=== PATIENT | female | born 1950 | race Caucasian/White ===

== ENCOUNTER 2021-07-13 09:45 | Outpatient (CLI) | payer MEDICARE, BC, SELFPAY | END 2021-07-13 09:46 | disposition home or self-care (01) | LOC: ANHSURGERY 09:54 | PROVIDERS: Visit Provider Urology | DX: N36.42 Intrinsic sphincter deficiency (ISD) (principal) | CPT/HCPCS: 87086; 87147; 87181; 87186 ==

== ENCOUNTER 2021-07-24 01:57 | Day surgery (SDC) | payer MEDICARE, BC, SELFPAY ==
[2021-07-12 11:31] VITALS: BMI 28.8
--- NOTE | 2021-07-12 11:55 | PC.NURSE ---
Report to the Outpatient Waiting Room, entrance under the green pavilion located off [facility], at time __12:00PM on date __07/24/21 . OR Time: __2:00PM . - You and your visitor will be asked a series of questions to screen for COVID 19 for your protection. - Only one visitor is allowed at this time. - The patient visitor is requested to leave or wait in car when not with patient. - A mask is required within the hospital. Patients may have clear liquids (water, carbonated beverages, clear teas, apple juice) until 3 hours prior to surgery with a maximum of 20 ounces. - No food from midnight until time of surgery - Infants may have breast milk until 4 hours before surgery, formula 6 hours prior to surgery. - Children will be allowed to drink immediately following surgery. If applicable, please bring a bottle or sippy cup to assist with drinking. Juice, water, soda, and popsicles are readily available. For infants on formula, please bring formula the day of surgery. Pacifiers are allowed. Take the following medications with a SIP of water the morning of surgery: __AMLODIPINE Medications to discontinue per physician ____HOLD ALL VITAMINS/SUPPLEMENTS 7 DAYS PRE-OP Date to take last dose____07/17/21 Please no make-up, nail ecuadorean, hairspray, perfume, deodorant, or body powder the day of surgery. No jewelry (including any body piercings) or valuables the day of surgery, leave them at home. Please take a shower or bath the night before, or the morning of, surgery with an antibacterial soap. Wear comfortable, loose fitting clothing. Children are encouraged to wear pajamas. - Jewelry must be removed prior to entering the operating room. Rings and piercings that are not removed may be cut off. - The hospital will not accept responsibility for valuables. - Please leave all valuables, including medications, at home the day of surgery. If you are going home after surgery, a licensed form setter/driver must drive you home. - NO public transportation without another adult. - We recommend that an adult stay with you for 24 hours following discharge. - We also recommend that you do not drive, make important decision, drink alcoholic beverages, or take any drugs that were not prescribed by your health care provider for at least 24 hours after your discharge time. For Pediatric surgeries, we recommend two adults accompany the child home (only one inside the building at this time). Follow any additional instructions given to you from your surgeon. If you or anyone in your household have experienced Covid symptoms in the past week, please notify your surgeon or the nurse liaison at the phone number below for possible testing. Telephone instructions given to __PATIENT and asked if any additional questions and then verbalized understanding. Patient advised to call surgeon office or pre surgery nurse liaison [phone] if any additional questions.
--- NOTE | 2021-07-23 21:23 | PM.IMHP ---
H&P: HPI History of Present Illness Date/Time: 07/23/21 21:23 Chief Complaint: 71 yo wtih ISD Review of Systems Review of Systems: negative [facility] Social History Social History Smoking packs per day: 1 Smoking cigarettes per day: 20.0 Years smoked: 19 Smoking pack-years: 19.00 Smoking status: Former smoker Tobacco type: cigarettes Smoking end date: 08/18/86 Alcohol intake: current Drinks per week: 4 Substance use: never Additional living arrangements comments: HUSB Spiritual care concerns: No Meds Home Medications and Allergies Home Medications Medication Instructions Recorded Confirmed Type Bifidobacterium infantis 4 mg 4 mg PO DAILY 07/12/21 07/12/21 History capsule (Align) [place] 3 Natural Fish Oil Conc 1 tab-cap PO DAILY 07/12/21 07/12/21 History acetaminophen 650 mg 1,300 mg PO Q12H PRN Pain 07/12/21 07/12/21 History tablet,extended release amlodipine 5 mg tablet 1 tablet PO QAM 07/12/21 07/12/21 History anastrozole 1 mg tablet 1 tablet PO QAM 07/12/21 07/12/21 History ascorbic acid (vitamin C) 1,000 mg 1 g PO DAILY 07/12/21 07/12/21 History tablet calcium carbonate 600 mg-vitamin 1 tablet PO BID 07/12/21 07/12/21 History D3 5 mcg (200 unit) tablet cholecalciferol (vitamin D3) 25 25 mcg PO DAILY 07/12/21 07/12/21 History mcg (1,000 unit) tablet cyanocobalamin (vitamin B-12) 1,000 mcg PO DAILY 07/12/21 07/12/21 History 1,000 mcg capsule inositol 250 mg tablet 220 mg PO DAILY 07/12/21 07/12/21 History lisinopril 20 mg tablet 20 mg PO QAM 07/12/21 07/12/21 History multivitamin with minerals-folic 1 tablet PO DAILY 07/12/21 07/12/21 History acid 0.4 mg tablet omega-3 fatty acids 2,000 mg PO DAILY 07/12/21 07/12/21 History omeprazole 20 mg capsule,delayed 1 cap PO QAM 07/12/21 07/12/21 History release oxybutynin chloride 10 mg 10 mg PO QAM 07/12/21 07/12/21 History tablet,extended release 24 hr rosuvastatin 20 mg tablet 1 tablet PO HS 07/12/21 07/12/21 History zoledronic acid 4 mg intravenous 4 mg IV [id number] 07/12/21 07/12/21 History solution Allergies Allergy/AdvReac Type Severity Reaction Status Date / Time chlorhexidine Allergy Rash Verified 07/12/21 11:17 Exam Narrative: normal breathing A+O x3 milimal urethral mobility Assessment and Plan Assessment and plan (1) Intrinsic sphincter deficiency (ISD): Code(s): N36.42 - Intrinsic sphincter deficiency (ISD) Status: Acute Assessment and Plan: bulking agent
[2021-07-24 10:28] VITALS: BP 124/72; PULSE 52; RESP 18; TEMP 36.4; O2SAT 98
[2021-07-24] MEDS: LACTATED RINGERS 1,000 ML 30 ML IV CONT (11:02)
--- NOTE | 2021-07-24 12:35 | WPDANESEPPF ---
Anes - Initial Pre Proc Eval Procedure: Operation Date: 07/24/21 12:30 Proposed Procedures p Cystoscopy with Bulkamid - Maged Parry MD Date/Time: 07/24/21 12:35 Surgeon: Maged Parry MD Pre Op Diagnosis: Instrinsic Sphincter Deficiency Patient Data Age: 71 Gender: F Height: 1.63 m Weight: 70.6 kg Last Vital Signs Temp 36.4 C L 07/24/21 10:28 Pulse 52 L 07/24/21 10:28 Resp 18 07/24/21 10:28 BP 124/72 07/24/21 10:28 Pulse Ox 98 07/24/21 10:28 O2 Del Method Room Air 07/24/21 10:28 Allergies Allergy/AdvReac Type Severity Reaction Status Date / Time chlorhexidine Allergy Rash Verified 07/12/21 11:17 Home Medications Medication Instructions Recorded Confirmed Type Bifidobacterium infantis 4 mg 4 mg PO DAILY 07/12/21 07/12/21 History capsule (Align) [place] 3 Natural Fish Oil Conc 1 tab-cap PO DAILY 07/12/21 07/12/21 History acetaminophen 650 mg 1,300 mg PO Q12H PRN Pain 07/12/21 07/12/21 History tablet,extended release amlodipine 5 mg tablet 1 tablet PO QAM 07/12/21 07/12/21 History anastrozole 1 mg tablet 1 tablet PO QAM 07/12/21 07/12/21 History ascorbic acid (vitamin C) 1,000 mg 1 g PO DAILY 07/12/21 07/12/21 History tablet calcium carbonate 600 mg-vitamin 1 tablet PO BID 07/12/21 07/12/21 History D3 5 mcg (200 unit) tablet cholecalciferol (vitamin D3) 25 25 mcg PO DAILY 07/12/21 07/12/21 History mcg (1,000 unit) tablet cyanocobalamin (vitamin B-12) 1,000 mcg PO DAILY 07/12/21 07/12/21 History 1,000 mcg capsule inositol 250 mg tablet 220 mg PO DAILY 07/12/21 07/12/21 History lisinopril 20 mg tablet 20 mg PO QAM 07/12/21 07/12/21 History multivitamin with minerals-folic 1 tablet PO DAILY 07/12/21 07/12/21 History acid 0.4 mg tablet omega-3 fatty acids 2,000 mg PO DAILY 07/12/21 07/12/21 History omeprazole 20 mg capsule,delayed 1 cap PO QAM 07/12/21 07/12/21 History release oxybutynin chloride 10 mg 10 mg PO QAM 07/12/21 07/12/21 History tablet,extended release 24 hr rosuvastatin 20 mg tablet 1 tablet PO HS 07/12/21 07/12/21 History zoledronic acid 4 mg intravenous 4 mg IV [id number] 07/12/21 07/12/21 History solution Patient hx anesthesia problems: none Family hx anesthesia problems: none Results Review: All pre-operative results and documents have been reviewed as part of the pre-operative evaluation. [facility] Past Medical History Medical History Breast CA GERD (gastroesophageal reflux disease) Hyperlipidemia Hypertension Renal cancer Social History Social History Smoking packs per day: 1 Smoking cigarettes per day: 20.0 Years smoked: 19 Smoking pack-years: 19.00 Smoking status: Former smoker Tobacco type: cigarettes Smoking end date: 08/18/86 Alcohol intake: current Drinks per week: 4 Substance use: never Living arrangements: with family Additional living arrangements comments: HUSB Spiritual care concerns: No Anes - Eval Final PreProcedure Day of Procedure 07/24/21 12:35 Patient weight: overweight Heart: regular rate and rhythm Lungs: clear to auscultation Airway: Mallampati scale class 1 Neurological: alert and oriented Last oral intake: >/= 8 hours ASA classification: III Emergent: no Anesthetic plan: proceed Anesthesia type and monitoring: general LMA and standard monitoring Results Review: All pre-operative results and documents have been reviewed as part of the pre-operative evaluation. Informed Consent: The patient's anesthetic plan and its attendant risks and benefits were discussed with the patient/family/POA. Questions were solicited and answers provided to the satisfaction of the patient/family/POA.
--- NOTE | 2021-07-24 12:50 | WPDHPUPDATE1 ---
History and Physical Update Update Date/Time: 07/24/21 12:50 History and Physical has been reviewed, including an updated exam of the patient. There are NO changes in the patient's condition. Risks, benefits, and alternatives have been discussed and questions answered. Patient agrees to proceed with procedure.
[2021-07-24] MEDS: ceFAZolin 2 GM/D5W 50 ML 2 GM/50 ML BAG IVPB (12:55)
--- NOTE | 2021-07-24 13:15 | P.OP_ITS ---
Procedure Note - Detailed Date of Procedure 07/24/21 Pre-op Diagnosis Instrinsic Sphincter Deficiency Post-op Diagnosis Same Procedure Performed Cystoscopy with suburethral injection of implant material [id number] Surgeon Maged Parry MD Anesthesia MAC Indications This is a patient with stress urinary incontinence due to intrinsic sphincter deficiency. They desires surgical correction. They understand the risk of bleeding, and infection, lack of efficacy, need for repeat procedures, obstructive voiding requiring catheterization. They agreed to proceed. She is feel urethral sling in the past. She understands the higher risk of lack of efficacy. She understands the risk of need for repeat procedures. She understands the risks of retention. She agrees to proceed Findings Open urethra consistent with intrinsic sphincter deficiency Description of Procedure The patient was correctly identified and informed consent was obtained. They were brought to the operating room. They were given MAC anesthesia. They were placed in the dorsal lithotomy position. They were prepped and draped in a sterile fashion. A time-out performed. Cystoscopy revealed no tumors in the bladder and an open urethra consistent with intrinsic sphincter deficiency. I located the site 2 cm distal the bladder neck. I injected my bulking agent circumferentially. I performed 4 pillows. These are at the 10 2 4 and 8 o' clock position. There was excellent bulking effect. At the conclusion of the procedure she was awakened and transferred to the PACU in stable condition. Implants Urethral bulking agent Estimated Blood Loss 1 Drains No Packing No Pathology None sent Complications No immediate complications Condition Stable Disposition PACU
[2021-07-24 13:19] VITALS: BP 91/64; PULSE 75; RESP 12; O2SAT 94
[2021-07-24 13:45] VITALS: BP 115/69; PULSE 65; RESP 20
[2021-07-24 14:15] VITALS: BP 137/69; PULSE 60; RESP 20
== END 2021-07-24 14:30 | disposition home or self-care (01) ==
PROVIDERS: Visit Provider Urology
PROC: 3E0K8GC Introduction of Other Therapeutic Substance into Genitourinary Tract, Via Natural or Artificial Opening Endoscopic (ICD-10-PCS; CPT 51715; principal; 2021-07-24 12:30)
DX: N36.42 Intrinsic sphincter deficiency (ISD) (principal); I10 Essential (primary) hypertension; E78.5 Hyperlipidemia, unspecified; K21.9 Gastro-esophageal reflux disease without esophagitis; Z87.891 Personal history of nicotine dependence; Z79.811 Long term (current) use of aromatase inhibitors; Z85.3 Personal history of malignant neoplasm of breast; Z85.528 Personal history of other malignant neoplasm of kidney
CPT/HCPCS: 51715; A9270; J0690; J2405; J2704; J3010; J7120; L8606

== ENCOUNTER 2024-07-06 07:43 | Outpatient (CLI) | payer MEDICARE, BC, SELFPAY ==
--- OUTSIDE RECORDS SUMMARY | 2024-07-06 07:50 | XMS_ITS | Encounter Summary ---
Author Organization [facility] Healthcare Address [address] [place] [address] Care Team Providers Care Film Processor Name Role Phone MachomanasaRogelio MD Unavailable [place] MD Unavailable [phone] Kyle Alejandro MD Unavailable [phone] Kelsey Royal MD PhD Unavailable [phone] Rena Alexander MD Unavailable [phone] Gila Ibarra MD Unavailable [phone] Aravind Jones BOAT GARNISHER Unavailable [phone] Anya Staton NP Unavailable Elaina Gagnon Primary Care Provider + Gustavo Toscano MD Unavailable Encounter Details Date Type Department Care Team (Late st Contact Info) Description 06/30/2024 Telephone [facility] Medical Group Orthopedics and Sports Medicine [facility] [address] [place] [address] Sebastian Pratt MD [address] [place] [id number] Social History Tobacco Use Types Packs/Day Years Used Date Smoking Tobacco: Former Cigarettes 0.8 20 0 02/18/1966 - 02/18/1986 Smokeless Tobacco: Never Alcohol Use Standard Drinks/Week Comments Yes 2 (1 standard drink = 0.6 oz pur e alcohol) [facility] Utilities Answer Date Recorded In the past 12 months has th e electric, gas, oil, or water company threatened to shut off services in your home? No 06/10/2023 Social Connection and Isolat ion Panel [NHANES] Answer Date Recorded In a typical week, how many times do you talk on the phone with family, friends, or neighbors? More than three times a week 06/10/2023 How often do you get togethe r with friends or relatives? More than three times a week 06/10/2023 How often do you attend chur ch or hinduism services? More than 4 times per year 06/10/2023 Do you belong to any clubs o r organizations such as orthodoxy groups, unions, fraternal or athletic groups, or school groups? No 06/10/2023 How often do you attend meet ings of the clubs or organizations you belong to? Never 06/10/2023 Are you , , di vorced, , never , or living with a partner? 06/10/2023 AUDIT-C Answer Date Recorded Q1: How often do you have a drink containing alc ohol? 2-4 times a month 06/07/2023 Q2: How many drinks containi ng alcohol do you have on a typical day when you are drinking? 1 or 2 06/07/2023 Q3: How often do you have si x or more drinks on one occasion? Never 06/07/2023 Overall Financial Resource Strain (CARDIA) Answe r Date Recorded How hard is it for you to pa y for the very basics like food, housing, medical care, and heating? Not hard at all 06/10/2023 Hunger Vital Sign Answer Date Recorded Within the past 12 months, y ou worried that your food would run out before you got the money to buy more. Never true 06/10/19 24 Within the past 12 months, t he food you bought just didn't last and you didn't have money to get more. Never true 06/10/2023 PRAPARE - Transportation Answer Date Re corded In the past 12 months, has l ack of transportation kept you from medical appointments or from getting medications? No 05/20 In the past 12 months, has l ack of transportation kept you from meetings, work, or from getting things needed for daily living? No 06/10/2023 Housing Stability Vital Sign Answer Miguel e Recorded In the last 12 months, was t here a time when you were not able to pay the mortgage or rent on time? No 06/10/2023 In the last 12 months, how many places have you lived? 1 06/10/2023 In the last 12 months, was t here a time when you did not have a steady place to sleep or slept in a detention (including now)? No 06/10/2023 Personal Safety Answer Date Recorded Have you ever been in or are you currently in a harmful physical or emotional relationship or is someone making you feel afraid or unsafe? Denies 06/07/2023 Comments No Sex and Gender Information Value Date Recorded Sex Assigned at Not on file Legal Sex Female 7:51 AM ICING AND GLAZE MAKER Gender Identity Female 11/03/2019 11:06 AM CDT Sexual Orientation Straight 11/03/2019 11 :06 AM CDT documented as of this encounter Miscellaneous Notes * Telephone Encounter - Brent Chaparro MA - 07/02/2024 2:54 PM CDT LVM again asking for pt to call back to get surgery dates. * Telephone Encounter - Brent Chaparro MA - 06/30/2024 1:07 PM CDT LVM asking pt call back so we can go over surgery dates. * Telephone Encounter - Naif Murphy MA - 06/30/2024 12:32 PM CDT SPOKE TO PT, SHE WANTS TO GET HER SURGERY SCHEDULED EMILY documented in this encounter Plan of Treatment Not on file documented as of this encounter Visit Diagnoses Not on filedocumented in this encounter Care Teams Film Processor Relationship Specialty Start Date End Date Elaina Gagnon PA [address] [place] [address] PCP - General Physician Insurance Coder 04/03/23 Rogelio Perkins MD Medical Oncologist/Hematologis t Medical Oncology 10/25/17 North Pemberton MD [address] [place] [address] Referring Physician Surgery 10/25/17 Kyle Alejandro MD [address] [place] [address] Referring Physician Urology 10/25/17 Kelsey Royal MD PhD [address] [place] [address] Radiation Oncologist Radiation Oncology 01/02/18 Rena Alexander MD [address] [place], [place] [id number] Medical Oncologist/Hematologis t Medical Oncology 04/23/18 Gila Ibarra MD [address] [place], [place] [id number] Surgeon Surgical Oncology 04/23/18 Aravind Jones NP [address] [place] [address] Nurse Practitioner Nurse Practitioner 10/11/20 Anya Staton NP [address] [place] [address] Nurse Practitioner Medical Oncology 06/27/21 Gustavo Toscano MD [address] [id number] Referring Physician Cardiovascular Disease 05/24/23 documented as of this encounter
--- OUTSIDE RECORDS SUMMARY | 2024-07-06 07:50 | XMS_ITS ---
Author Organization [facility] Address [address] [facility] [place] [address] Care Team Providers Care Retail Pos Specialist Name Role Phone Rogelio Perkins MD Unavailable [phone] [place] MD Unavailable Kyle Alejandro MD Unavailable [phone] Kelsey Royal MD PhD Unavailable [phone] Rena Alexander MD Unavailable [phone] Gila Ibarra MD Unavailable [phone] Aravind Jones TURBOGENERATOR OPERATOR Unavailable [phone] Anya Staton NP Unavailable [phone] Elaina Gagnon Primary Care Provider + Gustavo Toscano MD Unavailable Active Problems Problem Noted Date Diagnosed Date Status post total knee replacement using cement, right 06/28/2023 Orthopedic aftercare 06/28/2023 Right knee pain 06/28/2023 Depression 06/09/2023 Overactive bladder 06/09/2023 Arthritis of right knee 06/07/2023 Primary osteoarthritis of right knee 04/22/2023 Incomplete uterovaginal prolapse 11/28/2020 History of colon polyps 03/08/2020 snf current use of aromatase inhibitor 08/2018 Bone disorder 04/24/2018 Encounter for follow-up exam ination after completed treatment for malignant neoplasm 04/23/2018 Seborrheic dermatitis 04/23/2018 History of breast cancer 04/20/2018 Personal history of irradiation 04/20/2018 Essential (primary) hypertension 12/01/2017 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, estrogen receptor positive 10/09/2017 Cancer Staging:Pathologic:Stage IIIA(pT4b, pN0, cM0, G2, ER: Positive, CA: Positive, HER2: Negative) - Signed by Kelsey Royal MD PhD on 01/02/2018 Clinical:Stage IIIB(cT4b, cN0, cM0, G2, ER+, CA+, HER2-) - Signed by Kelsey Royal MD PhD on 01/02/2018 Overview (10/31/2022): Lumpectomy and re-excision, plans radiation and hormonal treatments Malignant neoplasm metastatic to right lung (CMS /HCC) 02/17/2016 Splenic abscess 12/26/2015 History of renal cell cancer 02/18/2014 Cancer Staging:Clinical:Stage IV(cTX, cM1) - Unsigned GERD (gastroesophageal reflux disease) 3 Hyperlipidemia 03/12/2012 Irritable bowel syndrome (IBS) 03/12/2012 Osteopenia 03/12/2012 Overview (01/15/2023): Date Lumbar Spine T-score Left hip T-score Femoral neck T-score 02-20-2018 -0.6 0.4 -1.7 09-04-2019 0.0 -1.6 01-22-2022 0.0 0.1 -1.8 Other specified arthritis, multiple sites 2012 Urge and stress incontinence 03/12/2012 Current Treatment and Therapy Plans No current plan information found. Past Treatment and Therapy Plans Radiation Treatments * Course C1 01/29/2018 - 03/18/2018 Treatment Period Energy Fraction Dose Fractions Total Dose Plans Planned L BREAST # 02/05/2018 - 03/18/2018 180 28 / 5,040 LUOQ BOOST 01/29/2018 - 02/04/2018 200 5 / 1,000 Reference Points Delivered LT BREAST_LNs 02/05/2018 - 03/18/2018 5,040 PTV_BOOST_1000 01/29/2018 - 02/04/2018 1,000 Lifetime Dose Tracking * Chemical Lifetime Dose Automatic Entry Manual Entr y DLP 3,375 mGycm 3,375 mGycm 0 mGycm Resolved Problems Problem Noted Date Diagnosed Date Resolved Date Renal mass 12/26/2015 10/24/2018 Renal cell carcinoma 02/18/2014 023 Overview (10/31/2022): s/p nephrectomy at [place], 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
--- OUTSIDE RECORDS SUMMARY | 2024-07-06 07:50 | XMS_ITS | Referral Summary ---
Author Organization [facility] Address [address] [place] [address] Care Team Providers Care Bulk Coolers Installer Name Role Phone Rogelio Perkins MD Unavailable [phone] [place] MD Unavailable [phone] Kyle Alejandro MD Unavailable [phone] Kelsey Royal MD PhD Unavailable [phone] Rena Alexander MD Unavailable [phone] Gila Ibarra MD Unavailable Aravind Jones UPHOLSTERER INSIDE Unavailable [phone] Anya Staton NP Unavailable [phone] Elaina Gagnon Primary Care Provider + Gustavo Toscano MD Unavailable Encounters Date Type Department Care Team Description 06/30/2024 Telephone [facility] Orthopedics and Sports Medicine [address] [place] [address] Sebastian Pratt MD 06/08/2024 12:03 PM CDT - 06/08/2024 11:59 PM CDT Hospital Encounter [facility] [address] [place] [address] Chronic pain of left knee Discharge Disposition: Discharge to home or self care 06/08/2024 11:45 AM CDT - 06/08/2024 11:59 PM CDT Hospital Encounter [facility] [address] [place] [id number] Chronic pain of right knee Discharge Disposition: Discharge to home or self care 06/08/2024 11:45 AM CDT Office Visit [facility] Orthopedics and Sports Medicine [address] [place] [address] [address] [place] [address] Sebastian Pratt MD Chronic pain of right knee (Primary Dx); Chronic pain of left knee from Last 3 Months Allergies Active Allergy Reactions Criticality Noted Date Comments Adhesive Rash Medium 03/23/2014 White, medical tape causes rash Adhesive Tape-Silicones Rash Medium 04/12/2014 Chlorhexidine Hives Medium 12/30/2017 Chlorhexidine Gluconate Hives Medium 11/15/2017 Medications inositol 650 mg tablet Take 1,300 mg by mouth 2 (two) times a day. Active calcium carbonate (CALCIUM 600 ORAL) Take 600 mg by mouth 2 (two) times a day. Active acetaminophen ER (TYLENOL) 650 mg 8 hr tablet Take 1 tablet (650 mg total) by mouth every 8 (eight) hours as needed for pain Active rr-4-nwe-epa-fi sh oil-vit D3 [phone] ya-tb-wn-unit capsule Take 1 capsule by mouth nightly Juan Diego Green brand name (from [employer]) Active sg-ms-kcsz-FA-C a carb-vit K (WOMEN'S MULTIVITAMIN) 18 mg-400 mcg- 500 mg-50 mcg tablet Take 1 tablet by mouth every morning. Active lisinopril (PRINIVIL,ZESTR IL) 20 mg tablet Take 1 tablet (20 mg total) by mouth daily Active amLODIPine (NORVASC) 5 mg tablet Take 1 tablet (5 mg total) by mouth daily 3 9 Active ascorbic acid (VITAMIN C) 1,000 mg tablet Take 0.5 tablets (500 mg total) by mouth daily 0 Active cholecalciferol (VITAMIN D-3) 1,000 unit capsule Take 2 capsules (2,000 Units total) by mouth daily Active cyanocobalamin (Vitamin B-12) 100 mcg tabletIndicatio ns:Prevention of Vitamin B12 Deficiency Take 10 tablets (1,000 mcg total) by mouth daily Active docusate sodium (COLACE) 100 mg capsule Take 1 capsule (100 mg total) by mouth as needed 2 Active omeprazole (PriLOSEC) 40 mg capsule Take 1 capsule (40 mg total) by mouth daily 2 Active oxybutynin XL (DITROPAN-XL) 10 mg 24 hr tablet Take 1 tablet (10 mg total) by mouth daily 2 Active B.animalis,bifi d,infantis,long (PROBIOTIC 4X ORAL) Take 1 capsule by mouth daily Active hydrocortisone 1 % cream Apply 1 Application topically daily Active UNABLE TO FIND Take 1 each by mouth daily Med Name: Prevagen regular strength Active fluticasone propionate (FLONASE) 50 mcg/actuation nasal spray Administer 1 spray into each nostril as needed for rhinitis Active apixaban (ELIQUIS) 2.5 mg tabletIndicatio ns:Chronic pain of right knee Take 1 tablet (2.5 mg total) by mouth 2 (two) times a day for 14 days 28 tablet 4 Active HYDROcodone-gena taminophen (NORCO) 7.5-325 mg per tabletIndicatio ns:Pain Take 1 tablet every 6 hours as needed for severe pain. 28 tablet 4 Active Additional Information Patient not taking.Reported on 12/31/2023 traMADoL (ULTRAM) 50 mg tabletIndicatio ns:Chronic pain of right knee Take 1 tablet (50 mg total) by mouth every 6 (six) hours as needed for pain (as needed for moderate pain) 28 tablet 4 Active Additional Information Patient not taking.Reported on 12/31/2023 ondansetron (ZOFRAN) 4 mg tabletIndicatio ns:Chronic pain of right knee Take 1 tablet (4 mg total) by mouth every 8 (eight) hours as needed for nausea or vomiting 20 tablet 4 Active Additional Information Patient not taking.Reported on 12/31/2023 venlafaxine XR (EFFEXOR-XR) 75 mg 24 hr capsule TAKE 1 CAPSULE BY MOUTH EVERY DAY 90 capsule 3 5 03/31/19 26 Active Active Problems Problem Noted Date Diagnosed Date Status post total knee replacement using cement, right 06/28/2023 Orthopedic aftercare 06/28/2023 Right knee pain 06/28/2023 Depression 06/09/2023 Overactive bladder 06/09/2023 Arthritis of right knee 06/07/2023 Primary osteoarthritis of right knee 04/22/2023 Incomplete uterovaginal prolapse 11/28/2020 History of colon polyps 03/08/2020 custodial current use of aromatase inhibitor 08/2018 Bone disorder 04/24/2018 Encounter for follow-up exam ination after completed treatment for malignant neoplasm 04/23/2018 Seborrheic dermatitis 04/23/2018 History of breast cancer 04/20/2018 Personal history of irradiation 04/20/2018 Essential (primary) hypertension 12/01/2017 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, estrogen receptor positive 10/09/2017 Cancer Staging:Pathologic:Stage IIIA(pT4b, pN0, cM0, G2, ER: Positive, SC: Positive, HER2: Negative) - Signed by Kelsey Royal MD PhD on 01/02/2018 Clinical:Stage IIIB(cT4b, cN0, cM0, G2, ER+, SC+, HER2-) - Signed by Kelsey Royal MD [...] T-score Left hip T-score Femoral neck T-score --2018 -0.6 0.4 -1.7 09-04-2019 0.0 -1.6 01-22-2022 0.0 0.1 -1.8 Other specified arthritis, multiple sites 2012 Urge and stress incontinence 03/12/2012 Resolved Problems Problem Noted Date Diagnosed Date Resolved Date Renal mass 12/26/2015 10/24/2018 Renal cell carcinoma 02/18/2014 023 Overview (10/31/2022): s/p nephrectomy at [facility], 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 Immunizations Immunization Administration Dates Next Due Influenza, Quadrivalent, Spl it, Preservative Free, Intramuscular 11/23/2016 Influenza, Trivalent, High D ose, Split, Preservative Free, Intramuscular 01/28/2023,01/29/2022,12/13/2018,12/18,01/02/2016,01/20/2015 Influenza, Unspecified 01/28/2023,2020,12/19/2017,01/02,11/13/2013,03/04/2013,01/16/2012 ,12/07/2009 Moderna SARS-CoV-2 Monovalen t Vaccination (12+ YRS) 06/03/2020,05/06/2020 Moderna Sars-cov-2 Monovalen t Booster Vaccination .25 Ml dose (12+ YRS) 02/23/2021 Pneumococcal Conjugate PCV 13 02/08/2016, 015 Pneumococcal Conjugate Pcv20 01/28/2022 Pneumococcal Polysaccharide PPV23 04/16/2017 RSV Vaccine, Pref, Recombina nt, Subunit, Adjuvanted, PF, IM (Arexvy) 02/20/2023 Tdap 02/13/2022,01/16/2012 ZOSTER LIVE 01/01/2017 ZOSTER Recombinant 12/30/2018,09/08/2018 Social History Tobacco Use Types Packs/Day Years Used Date Smoking Tobacco: Former Cigarettes 0.8 20 0 02/18/1966 - 02/18/1986 Smokeless Tobacco: Never Tobacco Cessation:Counseling Given: Not Answered Alcohol Use Standard Drinks/Week Comments Yes 2 (1 standard drink = 0.6 oz pur e alcohol) [facility] Utilities Answer Date Recorded In the past [...] often do you attend chur ch or rastafari services? More than 4 times per year 06/10/2023 Do you belong to any clubs o r organizations such as confucianism groups, unions, fraternal or athletic groups, or [...] place to sleep or slept in a residential (including now)? No 06/10/2023 Personal Safety Answer Date Recorded Have you ever been in or are you currently in a harmful physical or emotional relationship or is someone making you feel afraid or unsafe? Denies 06/07/2023 Comments No Sex and Gender Information Value Date Recorded Sex Assigned at Not on file Legal Sex Female 7:51 AM COUPON AND BOND COLLECTION CLERK Gender Identity Female 11/03/2019 11:06 AM CDT Sexual Orientation Straight 11/03/2019 11 :06 AM CDT Last Filed Vital Signs Vital Sign Reading Time Taken Comments Blood Pressure 139/74 12/31/2023 1:18 PM COUPON AND BOND COLLECTION CLERK Pulse 65 12/31/2023 1:18 PM COUPON AND BOND COLLECTION CLERK Temperature 36.4 C (97.5 F) 12/31/2023 1:18 PM COUPON AND BOND COLLECTION CLERK Respiratory Rate 16 12/31/2023 1:18 PM COUPON AND BOND COLLECTION CLERK Oxygen Saturation 98% 12/31/2023 1:18 PM COUPON AND BOND COLLECTION CLERK Inhaled Oxygen Concentration - - Weight 70 kg (154 lb 6.4 oz) 12/31/2023 1:18 PM COUPON AND BOND COLLECTION CLERK Height 162.6 cm (5' 4 ) 06/07/2023 4:14 PM CDT Body Mass Index 26.5 06/07/2023 4:14 PM CDT Plan of Treatment Not on file Medical Devices Implanted Type Area Deckhand Engineer Device Identifier Shelf Expiration Date Model / Serial / Lot [employer] Simplex P Radiopaque Full Dose Cement Bone Sterile 6191-1-010 - [id number] Implanted:Qty: 1 on 06/07/2023 by Sebastian Pratt MD at [facility] Right: Knee [employer] 06/17/2025 6191-1-010 / / [id number] [employer] Simplex P Radiopaque Full Dose Cement Bone Sterile 6191-1-010 - [id number] Implanted:Qty: 1 on 06/07/2023 by Sebastian Pratt MD at [facility] Right: Knee [employer] 06/17/2025 6191-1-010 / / [id number] [employer] Baseplate Tibial Knee Cemented Right Fixed Stemmed Persona Size E Tivanium [id number] - [id number] Implanted:Qty: 1 on 06/07/2023 by Sebastian Pratt MD at [facility] Right: Knee [employer] [id number] 03/20/2033 [id number] / / [id number] [employer] Persona Cemented Posterior Stabilize Knee Right 6 Standard [id number] - [id number] Implanted:Qty: 1 on 06/07/2023 by Sebastian Pratt MD at [facility] Right: Knee [employer] [id number] 01/22/2032 [id number] / / [id number] [employer] Persona 32mm Knee Component Patellar All Poly Latex Free 99-1401-354-32 - [id number] Implanted:Qty: 1 on 06/07/2023 by Sebastian Pratt MD at [facility] Right: Knee [employer] [id number] 01/08/2028 [id number] / / [id number] [employer] Insert Tibial Knee Vitamin E Fixed Rt Persona Vivacit E 16mm Size 6 9 E F Polyethylene [id number] - [id number] Implanted:Qty: 1 on 06/07/2023 by Sebastian Pratt MD at [facility] Right: Knee [employer] [id number] 11/30/2026 [id number] / / [id number] Procedures Procedure Name Priority Date/Time Associated Diagnosis Comments XR KNEE LEFT 3 VIEWS Schedule Routine, Read Routine (OP Routine) 06/08/2024 12:11 PM CDT Chronic pain of left knee XR KNEE RIGHT 3 VIEWS Schedule Routine, Read Routine (OP Routine) 06/08/2024 11:52 AM CDT Chronic pain of right knee SCREENING MAMMOGRAM BILATERAL W MAURICIO Schedule Routine, Read Routine (OP Routine) 01/02/2024 1:16 PM COUPON AND BOND COLLECTION CLERK Screening mammogram, encounter for HEPATITIS PANEL, ACUTE Routine 06/08/2023 5:21 AM CDT DEXA AXIAL SKELETON BONE DENSITY 1 OR MORE SITES Schedule Routine, Read Routine (OP Routine) 02/20/2018 2:01 PM COUPON AND BOND COLLECTION CLERK 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 There is evidence of obtc-xp-csvj degenerative changes of the lateral compartment as well as evidence of advanced degenerative changes patellofemoral joint compartment IMPRESSION: 1. Evidence of advanced degenerative changes about the left knee with progression of ldpf-ck-ozhj degenerative changes of the lateral compartment THIS IS AN ELECTRONICALLY VERIFIED FINAL REPORT 06/08/2024 12:45 PM - Electronically signed by Sebastian Pratt T: Report ID: [id number] Reading Location: [place] [address] Procedure Note Sebastian Pratt MD - 06/08/2024 EXAM DESCRIPTION: XR KNEE LEFT 3 VIEWS REASON FOR STUDY: pain COMPARISON: Left knee radiographs September 2021 FINDINGS: There is no evidence of fracture, dislocation or tumor. There is evidenceof odzk-vp-ziwt degenerative changes of the lateral compartment as well as evidence of advanced degenerative changes patellofemoral joint compartment IMPRESSION: 1. Evidence of advanced degenerative changes about the leftknee with progression of zfub-ea-umiq degenerative changes of the lateral compartment THIS IS AN ELECTRONICALLY VERIFIED FINAL REPORT 06/08/2024 12:45 PM - Electronically signed by Sebastian Pratt T: Report ID: [id number] Reading Location: [place] [address] Sebastian Pratt MD IMG XR PROCEDURES Final Result * XR Knee Right 3 Views (06/08/2024 11:52 AM CDT) Anatomical Region Laterality Modality Lower Extremities, Knee Right Computed Radiography 06/08/2024 12:4 6 PM CDT Narrative 06/08/2024 12:48 PM CDT EXAM DESCRIPTION: XR KNEE RIGHT 3 VIEWS REASON FOR STUDY: pain COMPARISON: Right knee radiographs May 2023. FINDINGS: There is no evidence of fracture, dislocation or tumor. There is evidence of stable alignment position of total knee arthroplasty components. There is no evidence of overt prosthesis loosening. There has been interval removal of skin ted compared to the May 2023 examination IMPRESSION: 1. Stable alignment and position of total knee arthroplasty components compared to prior images. THIS IS AN ELECTRONICALLY VERIFIED FINAL REPORT 06/08/2024 12:48 PM - Electronically signed by Sebastian Pratt T: Report ID: [id number] Reading Location: [place] [address] Procedure Note Sebastian Pratt MD - 06/08/2024 EXAM DESCRIPTION: XR KNEE RIGHT 3 VIEWS REASON FOR STUDY: pain COMPARISON: Right knee radiographs May 2023. FINDINGS: There is no evidence of fracture, dislocation or tumor. There is evidenceof stable alignment position of total knee arthroplasty components. There isno evidence of overt prosthesis loosening. There has been interval removalof skin ted compared to the May 2023 examination IMPRESSION: 1. Stable alignment and position of total knee arthroplasty components compared to prior images. THIS IS AN ELECTRONICALLY VERIFIED FINAL REPORT 06/08/2024 12:48 PM - Electronically signed by Sebastian Pratt T: Report ID: [id number] Reading Location: [place] [address] Sebastian Pratt MD [facility] [place]ED[place] Final Result * Screening Mammogram Bilateral W Mauricio (01/02/2024 1:16 PM COUPON AND BOND COLLECTION CLERK) Anatomical Region Laterality Modality Breast Bilateral Mammography Impressions 01/02/2024 1:37 PM COUPON AND BOND COLLECTION CLERK BI-RADS ATLAS category (overall): 1 - Negative There is no mammographic evidence of malignancy. A 1 year screening mammogram is recommended. The patient has been or will be contacted. We recommend annual screening mammography for women at average risk of breast cancer beginning at age 40, based on guidelines of the [place] [employer] (ACR Practice Parameter for the Performance of Screening and Diagnostic Mammography) and [place] [employer]. For women with and elevated risk of breast cancer, please refer to the ACR Practice Parameter for specific screening recommendations. The patient will be entered into a reminder system with a target due date of 1 year for her next screening exam. Narrative 01/02/2024 1:37 PM COUPON AND BOND COLLECTION CLERK Screening Mammogram Bilateral W Mauricio: 01/02/24 The study was acquired using full field digital technology and interpreted from soft copy. 2D digital mammographic views, as well as 3D digital tomosynthesis were performed in the CC and MLO projections. CLINICAL: Screening mammogram, encounter for. No relevant medical history has been documented for this patient. No known family history of breast cancer. COMPARISONS: 10/31/2022 Screening Mammogram Bilateral W Mauricio 10/27/2021 Screening Mammogram Bilateral W Mauricio 10/11/2020 Diagnostic Mammogram Bilateral W Mauricio 09/24/2019 Diagnostic Mammogram Bilateral W Mauricio 07/04/2018 Diagnostic Mammogram Bilateral W Mauricio BREAST TISSUE: There are scattered areas of fibroglandular density. FINDINGS: There is no new suspicious finding in either breast on mammogram. us Self Screening Mammogram IMG MAMMO PROCEDURES Fi nal Result * Hepatitis panel, acute Blood (06/08/2023 5:21 AM CDT) Hep A IgM Nonreactive Nonreactive Comment: Interpretive Data: If Hep A IgM Ab is reported as Equivocal, a new sample should be drawn in two weeks for testing. Current interpretive data was last revised on 19. Hep B core IgM Nonreactive Nonreactive [facility] Comment: Interpretive Data If HepB Core IgM Ab is reported as Equivocal, a new sample should be drawn in two weeks for testing. Current interpretive data was last revised on 19. Hep C Ab Nonreactive Nonreactive [facility] Comment: Antibodies to HCV not detected. Does NOT exclude the possibility of recent exposure to HCV. Current interpretive data was last revised on 21 Interpretive Data Nonreactive: Antibodies to HCV not detected. Does NOT exclude the possibility of recent exposure to HCV. Equivocal: Equivocal for HCV antibodies. Supplemental molecular testing will be automatically performed to determine infection status in accordance with current CDC screening recommendations. Reactive: Positive for HCV antibodies. This may represent current or past HCV infection. Supplemental molecular testing will be automatically performed to determine current infection status in accordance with current CDC screening recommendations. Interpretive data was last revised on 2019. HepBsAg Nonreactive Nonreactive [facility] Blood 06/08/2023 5:21 AM CDT 06/08/2023 5:51 AM CDT Avelina Mckeon NP LAB MICROBIOLOGY - GENERAL O RDERABLES Final Result [facility] [address] [place] [address] * Dexa Axial Skeleton Bone Density 1 or 2 Site (02/20/2018 2:01 PM COUPON AND BOND COLLECTION CLERK) Anatomical Region Laterality Modality Body N/A Radiographic Dominique ging Narrative 02/21/2018 12:37 PM COUPON AND BOND COLLECTION CLERK Patient Name: Estrella Rhoades Date of : 1950 Date of scan: 02/20/2018 Bone mineral density was performed on a [employer] Discovery Densitometer. Machine Cross-calibration and Precision studies have been performed with a least significant change of 0.024 g/cm at the spine, 0.020 g/cm at the total proximal femur, and 0.014g/cm at the forearm. HISTORY: This is a 68 y.o. postmenopausal female with a history of breast cancer, low bone mass and renal cancer. Currently on treatment with calcium and vitamin D. With a current complaint of back, neck, arm and leg pain. History of tobacco use: History Smoking Status Former Smoker Types: Cigarettes Start date: 1966 Quit date: 1986 INDICATIONS: Menopause status and history of low bone mass. FINDINGS: BONE MINERAL DENSITY OF THE LUMBAR SPINE Bone Mineral Density (BMD) of the lumbar spine was measured from L1-L4 and the average density was calculated to be 0.983 gm/cm. This corresponds to a T-score standard deviations from the mean of young adults of -0.6. There is no previous study available for comparison. BONE MINERAL DENSITY OF THE PROXIMAL FEMUR Bone Mineral Density (BMD) of the left hip total was found to be 0.987 gm/cm2. This corresponds to a T-score standard deviations from the mean of young adults of 0.4. Femoral neck is 0.664 gm/cm2 with a T-score of -1.7. There is no previous study available for comparison. SUMMARY: Bone mineral density shows evidence of low bone mass in the hip and moderately increased fracture risk. ADDITIONAL COMMENTS: If the patient has a history of a fragility fracture, a fracture that occurred with trauma equivalent to a fall from a standing position or less, then the diagnosis is osteoporosis. The risk of osteoporotic fracture increases approximately 2-fold for each 1.0 SD decrease in T-score. However, low bone density is not the only risk factor for fracture. Other factors include patient s age, previous osteoporotic fracture or prior fracture as an adult, loss of height of greater than 2 inches, corticosteroid use, risk of falling, risk of injury, and family history of osteoporosis. Not everyone with low bone mineral density has osteoporosis. Osteomalacia and other metabolic bone disorders should also be considered where indicated. Patients who have osteoporosis should be evaluated for specific diseases and conditions (secondary causes) that may cause or contribute to bone loss. Consider repeating this study in 1-2 years to assess the patient s response to treatment, if applicable. It is recommended that any follow up exam be performed on the same machine if possible for better accuracy. DEFINITIONS: Osteoporosis: BMD at or below -2.5 T-score Osteopenia (low bone mass): BMD between -1.0 and-2.5 T-score. The Bone Health Program adopts the following WHO definitions: Osteoporosis: BMD below -2.5 S.D. as compared to the BMD of young normal adults. Osteopenia or Low Bone Mass: BMD between -1.0 and -2.5 S.D. below the BMD of young normal adults. Normal Bone Density: BMD equal to or greater than -1.0 S.D. as compared to the BMD of young normal adults. References: 1) Marvin, Annals of Internal Medicine 114(11): 919-923 (1990) 2) Daniel, Lancet 341 : 72-75 (1992) 3) Josr, Journal Bone and Mineral Research 7(6): 633-8 (1991) 4) Beny, Journal Bone and Mineral Research 8(10):1227-33 (1992) The history and data sections of the bone mineral density scan were prepared by Letha Oviedo (R)(CBDT) who is accredited by the International Society of Clinical Densitometry. The overall patient assessment and scan interpretation were performed by Jasper Robins M.D. who is certified by the International Society of Clinical Densitometry. [id number] Rena Alexander MD IM DXA PROCEDURES F inal Result from Last 3 Months or Most Recently Relevant to Health Maintenance Insurance MEDICARE [facility] MEDICARE [facility] MEDICARE [facility] Advance Directives For more information, please contact: [phone] * Full Code (Latest Code Status on File) Date Activated Date Inactivated Comments 06/07/2023 4:24 PM 06/10/2023 8:10 PM Care Teams Bulk Coolers Installer Relationship Specialty Start Date End Date Elaina Gagnon PA [address] [place] [address] PCP - General Physician Pilot Plant Supervisor 04/03/23 Rogelio Perkins MD Medical Oncologist/Hematologis t Medical Oncology 10/25/17 [place] MD [address] [place] [address] Referring Physician Surgery 10/25/17 Kyle Alejandro MD [address] [place] [address] Referring Physician Urology 10/25/17 Kelsey Royal MD PhD [address] [place] [address] Radiation Oncologist Radiation Oncology 01/02/18 Rena Alexander MD [address] [facility] [address] [place] [address] Medical Oncologist/Hematologis t Medical Oncology 04/23/18 Gila Ibarra MD [address] [facility] [address] [place] [address] Surgeon Surgical Oncology 04/23/18 Aravind Jones NP [address] [place], [place] [address] Nurse Practitioner Nurse Practitioner 10/11/20 Anya Staton NP [address] [place], [place] [address] Nurse Practitioner Medical Oncology 06/27/21 Gustavo Toscano MD [address] [address] Referring Physician Cardiovascular Disease 05/24/23
--- OUTSIDE RECORDS SUMMARY | 2024-07-06 07:50 | XMS_ITS | Encounter Summary ---
Author Organization [facility] Address [facility] [place] [address] Care Team Providers Care Glost Kiln Operator Name Role Phone Sebastian Blankenship MD Primary Care Provider Elaina Gagnon PA-C Primary Care Provider Gila Ibarra MD Unavailable Kelsey Royal MD Unavailable [phone] [place] MD Unavailable [phone] Aravind Jones NP Unavailable Leonardo Ramirez MD Unavailable Scar Snow MD Unavailable [phone] Abida Velásquez MD Unavailable [phone] Rafael Roberts Unavailable Daniel Ceja MD Unavailable [phone] Saray PEARSON MD, Carlos C Unavailable Ja Toscano MD Unavailable Gustavo Toscano MD Unavailable Jocelyn Culp MD Unavailable Sebastian Pratt MD Unavailable [phone] Encounter Details Date Type Department Care Team (Late st Contact Info) Description 08/26/[address] [facility] Clinics Conversion , Generic MD Angelique Social History Tobacco Use Types Packs/Day Years Used Date Smoking Tobacco: Never Assessed Comments Unknown Sex and Gender Information Value Date Recorded Sex Assigned at Female 04/30/2019 8:35 AM CDT Legal Sex Female 10:57 PM CDT Gender Identity Female 04/30/2019 8:35 AM CDT Sexual Orientation Straight 04/30/2019 8: 35 AM CDT documented as of this encounter Plan of Treatment Upcoming Encounters Date Type Department Care Team (Late st Contact Info) Description 07/09/2024 10:40 AM CDT Office Visit [facility] Medical Group Orthopedic & Sports Medicine - [place] [address] [place] [address] Daniel Koenig MD [address] [address] [place] [address] 08/19/2024 1:30 PM CDT Appointment [facility] Ultrasound [address] [place] [address] Gustavo Toscano MD Three [facility] [address] [place], [place] [address] 04/29/2025 10:00 AM CDT Office Visit [facility] [address] [place] [address] Radha Mcgraw, ANP- Three [facility]. 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 documented as of this encounter Care Teams Glost Kiln Operator Relationship Specialty Start Date End Date Sebastian Blankenship MD [id number] [place] [address] PCP - General 03/23/14 01/05/18 Elaina Gagnon PA-C [address] [facility] [address] [place] [address] PCP - General PHYSICIAN RECREATION ENGINEER 01/06/18 Gila Ibarra MD [address] [place] [address] SURGERY 01/06/18 Kelsey Royal MD [address] DEPT RADIATION ONCOLOGY, [place] [address] RADIATION ONCOLOGY 01/06/18 [place] MD [address] DEPT RADIATION ONCOLOGY, [place] [address] SURGERY 01/06/18 12/05/19 Aravind Jones, ROOF BOLTER OPERATOR [address] DEPT RADIATION ONCOLOGY, [place] [address] NURSE PRACTITIONER 01/06/18 Leonardo Ramirez MD [address] DEPT RADIATION ONCOLOGY, [place] [address] ORTHOPAEDIC SURGERY 01/06/18 Scar Snow MD [address] [address] Referring Physician OPHTHALMOLOGY 01/06/18 Abida Velásquez MD [address] [facility] 5TH [place] [address] OBGYN 01/06/18 Rafael Roberts [address] [place] [address] DENTAL BULLET SWAGING MACHINE OPERATOR 01/06/18 Daniel Ceja MD [address] [place] [address] Consulting Physician GENERAL SURGERY 01/06/18 Cornelius So III, MD [address] [place] [address] PULMONARY DISEASE 01/06/18 Ja Toscano MD [address] [place] [address] Referring Physician OTOLARYNGOLOGY 12/06/19 Gustavo Toscano MD [address] [address] Consulting Physician CARDIOVASCULAR DISEASE 04/25/22 Jocelyn Culp MD [address] [place] [address] ORTHOPAEDIC SURGERY 08/10/22 Sebastian Pratt MD [address] [facility] [address] [place] [address] ORTHOPAEDIC SURGERY 02/26/23 Dr. Rena Alexander Medical Oncologist ONCOLOGY 01/06/18 Dr. Taya Orourke, OD OPTOMETRY 01/06/18 Dr. Kyle Alejandro 01/06/18 Dr. Roe Malik CARDIOTHORACIC SURGERY 01/06/18 Dr. Dwight Javed ONCOLOGY 01/06/18 documented as of this encounter
--- OUTSIDE RECORDS SUMMARY | 2024-07-06 07:50 | XMS_ITS | Encounter Summary ---
Author Organization [facility] Address [address] [place] [address] Phone Care Team Providers Care Jewelry Sales Associate Name Role Phone Kamaljit Byrd MD Primary Care Provider [phone] Rogelio Perkins MD Unavailable [place] MD Unavailable [phone] Kyle Alejandro MD Unavailable [phone] Kelsey Royal MD PhD Unavailable [phone] Rena Alexander MD Unavailable [phone] Gila Ibarra MD Unavailable [phone] Aravind Jones ASSISTANT MECHANIC Unavailable Anya Staton ASSISTANT MECHANIC Unavailable [phone] Elaina Gagnon Primary Care Provider + Elaina Gagnon Primary Care Provider + Gustavo Toscano MD Unavailable Encounter Details Date Type Department Care Team (Latest Contact Info) Description 05/01/2022 Orders Only [facility] Scanning, Provider Social History Tobacco Use Types Packs/Day Years Used Date Smoking Tobacco: Former Cigarettes 7 - 1986 Smokeless Tobacco: Never Alcohol Use Standard Drinks/Week Comments Yes 2 (1 standard drink = 0.6 oz pur e alcohol) AUDIT-C Answer Date Recorded Q1: How often do you have a drink containing alc ohol? 2-3 times a week 01/09/2022 Q2: How many drinks containi ng alcohol do you have on a typical day when you are drinking? 3 or 4 01/09/2022 Q3: How often do you have si x or more drinks on one occasion? Never 01/09/2022 Comments No Sex and Gender Information Value Date Recorded Sex Assigned at Not on file Legal Sex Female 7:51 AM SECURE SOFTWARE ASSESSOR Gender Identity Female 11/03/2019 11:06 AM CDT Sexual Orientation Straight 11/03/2019 11 :06 AM CDT documented as of this encounter Plan of Treatment Not on file documented as of this encounter Procedures Procedure Name Priority Date/Time Associated Diagnosis Comments SCAN - LABS 05/01/2022 documented in this encounter Results * SCAN - LABS (05/01/2022) us Provider Scanning Final Result documented in this encounter Visit Diagnoses Not on filedocumented in this encounter Care Teams Jewelry Sales Associate Relationship Specialty Start Date End Date Kamaljit Byrd MD [address] [place] [address] PCP - General 03/08/20 01/14/23 Elaina Gagnon PA [address] [place] [address] PCP - General Physician Anime Designer 01/15/23 04/02/23 Elaina [facility]agnon PA [address] [address] [address] [place] [address] PCP - General Physician Anime Designer 04/03/23 Rogelio Perkins MD [address] [place] [address] Medical Oncologist/Hematologis t Medical Oncology 10/25/17 [place] MD [address] [place] [address] Referring Physician Surgery 10/25/17 Kyle Alejandro MD [address] [place] [address] Referring Physician Urology 10/25/17 Kelsey Royal MD PhD [address] [place] [address] Radiation Oncologist Radiation Oncology 01/02/18 Rena Alexander MD [address] [place] [address] Medical Oncologist/Hematologis t Medical Oncology 04/23/18 Gila Ibarra MD [address] [facility] [address] [place] [address] Surgeon Surgical Oncology 04/23/18 Aravind Jones NP [address] [place] [address] Nurse Practitioner Nurse Practitioner 10/11/20 Anya Staton NP [address] [place] [address] Nurse Practitioner Medical Oncology 06/27/21 Gustavo Toscano MD [address] [place], [place] [address] Referring Physician Cardiovascular Disease 05/24/23 documented as of this encounter
--- OUTSIDE RECORDS SUMMARY | 2024-07-06 07:51 | XMS_ITS | Encounter Summary ---
Author Organization [facility] Address [facility] [place] [address] Care Team Providers Care Customer Response Representative Name Role Phone Sebastian Blankenship MD Primary Care Provider [phone] Elaina Gagnon PA-C Primary Care Provider Gila Ibarra MD Unavailable Kelsey Royal MD Unavailable [phone] [place] MD Unavailable [phone] Aravind Jones NP Unavailable Leonardo Ramirez MD Unavailable [phone] Scar Snow MD Unavailable Abida Velásquez MD Unavailable [phone] Rafael Roberts Unavailable Daniel Ceja MD Unavailable Saray PEARSON MD, Carlos C Unavailable Ja Toscano MD Unavailable Gustavo Toscano MD Unavailable Jocelyn Culp MD Unavailable Sebastian Pratt MD Unavailable [phone] Encounter Details Date Type Department Care Team (Late st Contact Info) Description 12/22/2016 Abstract [place] [address] , Generic Conversion, Social History Tobacco Use Types Packs/Day Years [...] Encounters Date Type Department Care Team (Late Contact Info) Description 07/09/2024 10:40 AM CDT Office Visit [facility] Medical Group Orthopedic & Sports Medicine - [place] [address] [place] [address] Daniel Koenig MD [address] [address] [place] [address] 08/19/2024 1:30 PM CDT Appointment [facility] Ultrasound [address] [place], [place] [address] Gustavo Toscano MD Three [facility]. [address] [address] 04/29/2025 10:00 AM CDT Office Visit [facility] [address] [place] [address] Radha Mcgraw, ANP-BC Three [facility]. [address] [address] documented as of this encounter Visit Diagnoses Not on filedocumented in this encounter Additional Health Concerns Infection Onset Date Last Indicated Resolved Time COVID-19 Rule Out 03/28/2020 03/28/2020 03/29/2020 8:46 PM LABORER DEMOLITION documented as of this encounter Care Teams Customer Response Representative Relationship Specialty Start Date End Date Sebastian Blankenship MD [id number] [place] [address] PCP - General 03/23/14 01/05/18 Elaina Gagnon, PAAlvaC [address] [facility] [address] [place] [address] PCP - General PHYSICIAN MEDICAL CENTER REPRESENTATIVE 01/06/18 Gila Ibarra MD [address] [place] [address] SURGERY 01/06/18 Kelsey Royal MD [address] DEPT RADIATION ONCOLOGY, [place] [address] RADIATION ONCOLOGY 01/06/18 [place] MD [address] DEPT RADIATION ONCOLOGY, [place] [address] SURGERY 01/06/18 12/05/19 Aravind Jones, AUTOMOTIVE MACHINIST APPRENTICE [address] DEPT RADIATION ONCOLOGY, [place] [address] NURSE PRACTITIONER 01/06/18 Leonardo Ramirez MD [address] DEPT RADIATION ONCOLOGY, [place] [address] ORTHOPAEDIC SURGERY 01/06/18 Scar Snow MD [address] [address] Referring Physician OPHTHALMOLOGY 01/06/18 Abida Velásquez MD [address] [facility] 5TH [place] [address] OBGYN 01/06/18 Rafael Roberts [address] [place] [address] DENTAL INSTRUCTIONAL DESIGN SPECIALIST 01/06/18 Daniel Ceja MD [address] [place] [address] Consulting Physician GENERAL SURGERY 01/06/18 Cornelius So III, MD [address] [place] [address] PULMONARY DISEASE 01/06/18 Ja Toscano MD [address] [place] [address] Referring Physician OTOLARYNGOLOGY 12/06/19 Gustavo Toscano MD [address] [address] Consulting Physician CARDIOVASCULAR DISEASE 04/25/22 Jocelyn Culp MD [address] [place] [address] ORTHOPAEDIC SURGERY 08/10/22 Sebastian Pratt MD [address] [facility] [address] [place] [address] ORTHOPAEDIC SURGERY 02/26/23 Dr. Rena Alexander Medical Oncologist ONCOLOGY 01/06/18 Dr. Taya Orourke, OD OPTOMETRY 01/06/18 Dr. Kyle Alejandro 01/06/18 Dr. Roe Malik CARDIOTHORACIC SURGERY 01/06/18 Dr. Dwight Javed ONCOLOGY 01/06/18 documented as of this encounter
--- OUTSIDE RECORDS SUMMARY | 2024-07-06 07:51 | XMS_ITS | Encounter Summary ---
Author Organization [facility] Address [facility]6 [place] [address] Care Team Providers Care Budget Coordinator Name Role Phone Sebastian Blankenship MD Primary Care Provider Elaina Gagnon PA-C Primary Care Provider Gila Ibarra MD Unavailable [phone] Kelsey Royal MD Unavailable [phone] [place] MD Unavailable [phone] Aravind Jones NP Unavailable Leonardo Ramirez MD Unavailable [phone] Scar Snow MD Unavailable Abida Velásquez MD Unavailable [phone] Rafael Roberts Unavailable Daniel Ceja MD Unavailable Saray PEARSON MD, Carlos C Unavailable Ja Toscano MD Unavailable Gustavo Toscano MD Unavailable Jocelyn Culp MD Unavailable Sebastian Pratt MD Unavailable [phone] Encounter Details Date Type Department Care Team (Late st Contact Info) Description 05/30/[address] [facility] Clinics Conversion , Generic MD [...] Description 07/09/2024 10:40 AM CDT Office Visit [facility] Medical Group Orthopedic & Sports Medicine - [place] [address] [place] [address] Daniel Koenig MD [address] [address] [place] [address] 08/19/2024 1:30 PM CDT Appointment [facility] Ultrasound [address] [place] [address] Gustavo Toscano MD Three [facility]. [facility] [address] [place], [place] [address] 04/29/2025 10:00 AM CDT Office Visit [facility] [address] [place] [address] Radha Mcgraw, ANP- Three [facility]. 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 HELPER documented as of this encounter Care Teams Budget Coordinator Relationship Specialty Start Date End Date Sebastian Blankenship MD [address] [place] [address] PCP - General 03/23/14 01/05/18 Elaina Gagnon PA-C [address]01 [facility] 112 [place] [address] PCP - General PHYSICIAN SUPERVISOR LACE TEARING 01/06/18 Gila Ibarra MD [address] [place] [address] SURGERY 01/06/18 Kelsey Royal MD [address] DEPT RADIATION ONCOLOGY, [place] [address] RADIATION ONCOLOGY 01/06/18 [place] MD [address] DEPT RADIATION ONCOLOGY, [place] [address] SURGERY 01/06/18 12/05/19 rAavind Jones, CYBER OPS PLANNER [address] DEPT RADIATION ONCOLOGY, [place] [address] NURSE PRACTITIONER 01/06/18 Leonardo Ramirez MD [address] DEPT RADIATION ONCOLOGY, [place] [address] ORTHOPAEDIC SURGERY 01/06/18 Scar Snow MD [address] [address] Referring Physician OPHTHALMOLOGY 01/06/18 Abida Velásquez MD [address] [facility] 5TH [place] [address] OBGYN 01/06/18 Rafael Roberts [address] [place] [address] DENTAL OTR FLATBED DRIVER 01/06/18 Daniel Ceja MD [address] [place] [address] Consulting Physician GENERAL SURGERY 01/06/18 Cornelius So III, MD [address] [place] [address] PULMONARY DISEASE 01/06/18 Ja Toscano MD [address] [place] [address] Referring Physician OTOLARYNGOLOGY 12/06/19 Gustavo Toscano MD [address] [address] Consulting Physician CARDIOVASCULAR DISEASE 04/25/22 Jocelyn Culp MD [address] [place] [address] ORTHOPAEDIC SURGERY 08/10/22 Sebastian Pratt MD [address] [facility] [address] [place] [address] ORTHOPAEDIC SURGERY 02/26/23 Dr. Rena Alexander Medical Oncologist ONCOLOGY 01/06/18 Dr. Taya Orourke, OD OPTOMETRY 01/06/18 Dr. Kyle Alejandro 01/06/18 Dr. Roe Malik CARDIOTHORACIC SURGERY 01/06/18 Dr. Dwight Javed ONCOLOGY 01/06/18 documented as of this encounter
--- OUTSIDE RECORDS SUMMARY | 2024-07-06 07:51 | XMS_ITS | Encounter Summary ---
Author Organization [facility] Address [address] [place] [address] Care Team Providers Care Powderman Name Role Phone Sebastian Blankenship MD Primary Care Provider + Kamaljit Byrd MD Primary Care Provider + [phone] Kamaljit Byrd MD Primary Care Provider + [phone] Kamaljit Byrd MD Unavailable [phone] Rogelio Perkins MD Unavailable [phone] [place] MD Unavailable [phone] Kyle Alejandro MD Unavailable [phone] Kelsey Ryoal MD PhD Unavailable [phone] Rena Alexander MD Unavailable [phone] Gila Ibarra MD Unavailable [phone] Aravind Jones REPAIRER GENERAL Unavailable [phone] Anya Staton REPAIRER GENERAL Unavailable [phone] Elaina Gagnon Primary Care Provider + Elaina Gagnon Primary Care Provider + Gustavo Toscano MD Unavailable Encounter Details Date Type Department Care Team (Late st Contact Info) Description 01/06/2018 Telephone [facility] Advanced Medicine Radiation Oncology [address] [facility] [address] Yoly Silva MA Social History Tobacco Use Types Packs/Day Years Used Date Smoking Tobacco: Former Cigarettes 1986 Smokeless Tobacco: Never Alcohol Use Standard Drinks/Week Comments Yes 2 (1 standard drink = 0.6 oz pur e alcohol) Comments No Sex and Gender Information Value Date Recorded Sex Assigned at Not on file Legal Sex Female 7:51 AM LEAN 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 Gender Identity Female 11/03/2019 11:06 AM CDT Sexual Orientation Straight 11/03/2019 11 :06 AM CDT documented as of this encounter Plan of Treatment Not on file documented as of this encounter Visit Diagnoses Not on filedocumented in this encounter Care Teams Powderman Relationship Specialty Start Date End Date Sebastian Blankenship MD PCP - General 12/02/17 05/05/18 Kamaljit Byrd MD [address] [place] [address] PCP - General 05/06/18 03/07/20 Kamaljit Byrd MD [address] [facility] [address] [place] [address] PCP - General 03/08/20 01/14/23 Elaina Gagnon PA [address] [place] [address] PCP - General Physician Checkerer Hand 01/15/23 04/02/23 Elaina Gagnon PA [address] [place] [address] PCP - General Physician Checkerer Hand 04/03/23 Kamaljit Byrd MD [address] [facility] [address] [place] [address] 03/08/20 06/26/21 Rogelio Perkins MD [address] [facility] [address] [place] [address] Medical Oncologist/Hematologis t Medical Oncology 10/25/17 North P[place]ton MD [address] [place] [address] Referring Physician Surgery 10/25/17 Kyle Alejandro MD [address] [facility] [address] [place] [address] Referring Physician Urology 10/25/17 Kelsey Royal MD PhD [address] [facility] [address] [place] [address] Radiation Oncologist Radiation Oncology 01/02/18 Rena Alexander MD [address] [facility] [address] [place] [address] Medical Oncologist/Hematologis t Medical Oncology 04/23/18 Gila Ibarra MD [address] [facility] [address] [place] [address] Surgeon Surgical Oncology 04/23/18 Aravind Jones NP [address] [place] [address] Nurse Practitioner Nurse Practitioner 10/11/20 Anya Staton NP [address] [place] [address] Nurse Practitioner Medical Oncology 06/27/21 Gustavo Toscano MD [address] [address] Referring Physician Cardiovascular Disease 05/24/23 documented as of this encounter
--- OUTSIDE RECORDS SUMMARY | 2024-07-06 07:51 | XMS_ITS | Encounter Summary ---
Author Organization [facility] Address [facility] [place] [address] Care Team Providers Care Saturator Name Role Phone Sebastian Blankenship MD Primary Care Provider [phone] Elaina Gagnon PA-C Primary Care Provider Gila Ibarra MD Unavailable [phone] Kelsey Royal MD Unavailable [phone] [place] MD Unavailable [phone] Aravind Jones NP Unavailable Leonardo Ramirez MD Unavailable Scar Snow MD Unavailable Abida Velásquez MD Unavailable [phone] Rafael Roberts Unavailable Daniel Ceja MD Unavailable Saray PEARSON MD, Carlos C Unavailable Ja Toscano MD Unavailable Gustavo Toscano MD Unavailable Jocelyn Culp MD Unavailable Sebastian Pratt MD Unavailable [phone] Encounter Details Date Type Department Care Team (Late st Contact Info) Description 12/13/2014 Abstract [facility] Conversion Sebastian Blankenship MD [id number] [place] [address] Social History Tobacco Use Types Packs/Day Years Used Date Smoking Tobacco: Never Assessed Comments Unknown Sex and Gender Information Value Date Recorded Sex Assigned at Female 04/30/2019 8:35 AM CDT Legal Sex Female 10:57 PM CDT Gender Identity Female 04/30/2019 8:35 AM CDT Sexual Orientation Straight 04/30/2019 8: 35 AM CDT documented as of this encounter Miscellaneous Notes * Letter - Sebastian Blankenship MD - 12/13/2014 12:00 AM CDT Dec 13, 2014 Dorcas Becerra [address] [place] [address] Dear Dorcas Becerra, Thank you for choosing [facility] for your health care needs. We appreciate the opportunity to help you maintain your well being. You recently had health fair testing. Your results came back normal/at goals. Please remember to follow up as discussed at your last appointment. If you have any questions please feel free to call the office at [phone], Option #3 orOption #1 to make an appointment to discuss these results. Respectfully Yours, Electronically Signed by: Sebastian Blankenship MD Cc: Patient?s Medical Record ET MACHINE OPERATOR documented in this encounter Plan of Treatment Upcoming Encounters Date Type Department Care Team (Late st Contact Info) Description 07/09/2024 10:40 AM CDT Office Visit [facility] Orthopedic & Sports Medicine - [place] [address] [place] [address] Daniel Koenig MD [address] [address] [place] [address] 08/19/2024 1:30 PM CDT Appointment [facility] Ultrasound [address] [place] [address] Gustavo Toscano MD Three [facility]. [facility] [address] [place] [address] 04/29/2025 10:00 AM CDT Office Visit [facility] [address] [place] [phone] Radha Mcgraw, ANP- Three [facility]. [facility] [address] [place] [address] documented as of this encounter Visit Diagnoses Not on filedocumented in this encounter Additional Health Concerns Infection Onset Date Last Indicated Resolved Time COVID-19 Rule Out 03/28/2020 03/28/2020 03/29/2020 8:46 PM TICKET MACHINE OPERATOR documented as of this encounter Care Teams Saturator Relationship Specialty Start Date End Date Sebastian Blankenship MD [id number] [place] [address] PCP - General 03/23/14 01/05/18 Elaina Gagnon PA-C [address] [facility] [address] [place] [address] PCP - General PHYSICIAN GINGER FARMER 01/06/18 Gila Ibarra MD [facility] [address] [place] [address] SURGERY 01/06/18 Kelsey Royal MD [address] DEPT RADIATION ONCOLOGY, [place] [address] RADIATION ONCOLOGY 01/06/18 [place] MD [address] DEPT RADIATION ONCOLOGY, [place] [address] SURGERY 01/06/18 12/05/19 Aravind Jones, ELECTRIC MOTOR REPAIRMAN [address] [facility] [address] DEPT RADIATION ONCOLOGY, [place] [address] NURSE PRACTITIONER 01/06/18 Leonardo Ramirez MD [address] [facility] [address] DEPT RADIATION ONCOLOGY, [place] [address] ORTHOPAEDIC SURGERY 01/06/18 Scar Snow MD [address] [place] [address] Referring Physician OPHTHALMOLOGY 01/06/18 Abida Velásquez MD [address] [place] [address] OBGYN 01/06/18 Rafael Roberts [address] [place] [id number] DENTAL MASS SPEC 01/06/18 Daniel Ceja MD [address] [place] [address] Consulting Physician GENERAL SURGERY 01/06/18 Cornelius So III, MD [address] [place] [address] PULMONARY DISEASE 01/06/18 Ja Toscano MD [address] [place] [address] Referring Physician OTOLARYNGOLOGY 12/06/19 Gustavo Toscano MD [address] [address] Consulting Physician CARDIOVASCULAR DISEASE 04/25/22 Jocelyn Culp MD [address] [place], [place] [address] ORTHOPAEDIC SURGERY 08/10/22 Sebastian Pratt MD [address] [address] ORTHOPAEDIC SURGERY 02/26/23 Dr. Rena Alexander Medical Oncologist ONCOLOGY 01/06/18 Dr. Taya Orourke, OPTOMETRY 01/06/18 Dr. Kyle Alejandro 01/06/18 Dr. Roe Malik CARDIOTHORACIC SURGERY 01/06/18 Dr. Dwight Javed ONCOLOGY 01/06/18 documented as of this encounter
--- OUTSIDE RECORDS SUMMARY | 2024-07-06 07:51 | XMS_ITS | Encounter Summary ---
Author Organization [facility] Address [facility] [place] [address] Care Team Providers Care Senior Interior Designer Name Role Phone Sebastian Blankenship MD Primary Care Provider [phone] Elaina Gagnon PA-C Primary Care Provider Gila Ibarra MD Unavailable Kelsey Royal MD Unavailable [phone] [place] MD Unavailable [phone] Aravind Jones NP Unavailable [phone] Leonardo Ramirez MD Unavailable [phone] Scar Snow MD Unavailable [phone] Abida Velásquez MD Unavailable [phone] Rafael Roberts Unavailable Daniel Ceja MD Unavailable Saray PEARSON MD, Carlos C Unavailable [phone] Ja Toscano MD Unavailable Gustavo Toscano MD Unavailable Jocelyn Culp MD Unavailable Sebastian Pratt MD Unavailable [phone] Encounter Details Date Type Department Care Team (Latest Contact Info) Description 10/29/2017 Abstract [facility] Avery Thurston MD Social History Tobacco Use Types Packs/Day Years [...] Description 07/09/2024 10:40 AM CDT Office Visit [facility] Medical Group Orthopedic & Sports Medicine - [place] [address] [place] [address] Daniel Koenig MD [address] [facility] [address] [place] [address] 08/19/2024 1:30 PM CDT Appointment [facility] Ultrasound [address] [place] [address] Gustavo Toscano MD Three [address] [address] 04/29/2025 10:00 AM CDT Office Visit [facility] [address] [place] [phone] Radha Mcgraw, ANP- Three [facility]. [facility] [address] [place], [place] [phone] documented as of this encounter Visit Diagnoses Not on filedocumented in this encounter Additional Health Concerns Infection Onset Date Last Indicated Resolved Time COVID-19 Rule Out 03/28/2020 03/28/2020 03/29/2020 8:46 PM ARBORICULTURIST documented as of this encounter Care Teams Senior Interior Designer Relationship Specialty Start Date End Date Sebastian Blankenship MD [id number] [place] [address] PCP - General 03/23/14 01/05/18 Elaina Gagnon PA-C [address] [facility] [address] [place] [address] PCP - General PHYSICIAN CONSERVATION WORKER 01/06/18 Gila Ibarra MD [address] [place] [address] SURGERY 01/06/18 Kelsey Royal MD [address] DEPT RADIATION ONCOLOGY, [place] [address] RADIATION ONCOLOGY 01/06/18 [place] MD [address] DEPT RADIATION ONCOLOGY, [place] [address] SURGERY 01/06/18 12/05/19 Aravind Jones, TECHNICAL AGRONOMIST [address] DEPT RADIATION ONCOLOGY, [place] [address] NURSE PRACTITIONER 01/06/18 Leonardo Ramirez MD [address] DEPT RADIATION ONCOLOGY, [place] [address] ORTHOPAEDIC SURGERY 01/06/18 Scar Snow MD [address] [address] Referring Physician OPHTHALMOLOGY 01/06/18 Abida Velásquez MD [address] [facility] 5TH [place] [address] OBGYN 01/06/18 Rafael Roberts [address] [place] [address] DENTAL FREELANCE GRAPHIC DESIGNER 01/06/18 Daniel Ceja MD [address] [place] [address] Consulting Physician GENERAL SURGERY 01/06/18 Cornelius So III, MD [address] [place] [address] PULMONARY DISEASE 01/06/18 Ja Toscano MD [address] [place] [address] Referring Physician OTOLARYNGOLOGY 12/06/19 Gustavo Toscano MD [address] [address] Consulting Physician CARDIOVASCULAR DISEASE 04/25/22 Jocelyn Culp MD [address] [place] [address] ORTHOPAEDIC SURGERY 08/10/22 Sebastian Pratt MD [facility] [address] [place] [address] [place] [address] ORTHOPAEDIC SURGERY 02/26/23 Dr. Rena Alexander Medical Oncologist ONCOLOGY 01/06/18 Dr. Taya Orourke, OD OPTOMETRY 01/06/18 Dr. Kyle Alejandro 01/06/18 Dr. Roe Malik CARDIOTHORACIC SURGERY 01/06/18 Dr. Dwight Javed ONCOLOGY 01/06/18 documented as of this encounter
--- OUTSIDE RECORDS SUMMARY | 2024-07-06 07:51 | XMS_ITS | Encounter Summary ---
Author Organization [facility] Address [facility] [place] [address] Care Team Providers Care Die Cast Engineer Name Role Phone Elaina Gagnon PA-C Primary Care Provider [phone] Gila Ibarra MD Unavailable [phone] Kelsey Royal MD Unavailable [phone] Aravind Jones NP Unavailable Leonardo Ramirez MD Unavailable Scar Snow MD Unavailable [phone] Abida Velásquez MD Unavailable [phone] Rafael Roberts Unavailable Daniel Ceja MD Unavailable [phone] Saray PEARSON MD, Carlos C Unavailable Ja Toscano MD Unavailable Gustavo Toscano MD Unavailable Jocelyn Culp MD Unavailable Sebastian Pratt MD Unavailable Encounter Details Date Type Department Care Team (Late st Contact Info) Description 01/01/2024 MyChart Message Enc [facility] Medical Group Orthopedic & Sports Medicine - [place] [facility] [place] [address] Daniel Koenig MD [address] [address] [place] [address] Dec 25, 2023 Follow Up visit with Sebastian Cortes Social History Tobacco Use Types Packs/Day Years Used Date Smoking Tobacco: Former Cigarettes 1 19 0 02/18/1967 - 02/18/1986 Passive Smoke Exposure: Past Smokeless Tobacco: Never Comments:Former, Quit 1986 Alcohol Use Standard Drinks/Week Comments Yes 6.7 (1 standard drin k = 0.6 oz pure alcohol) drinks occasional shot or two of whiskey or liquor couple or 3 days a week [facility] ADTZities Answer Date Recorded In the past 12 months has e Allmoxy, gas, oil, or water [email or web address] threatened to shut off services in your home? Patient declined 02/10/2023 Humiliation, Afraid, Rape, and Kick questionnair e Answer Date Recorded Within the last year, have y ou been afraid of your partner or ex-partner? Patient declined 02/10/2023 Within the last year, have y ou been humiliated or emotionally abused in other ways by your partner or ex-partner? Patient declined 02/10/2023 Within the last year, have y ou been kicked, hit, slapped, or otherwise physically hurt by your partner or ex-partner? Patient declined 02/10/2023 Within the last year, have y ou been raped or forced to have any kind of sexual activity by your partner or ex-partner? Patient declined 02/10/2023 AUDIT-C Answer Date Recorded Frequency of Alcohol Consumption 2-3 times a wee k 12/30/2017 Average Number of Drinks 1 or 2 018 Frequency of Binge Drinking Never 12/19 Overall Financial Resource Strain (CARDIA) Answe r Date Recorded How hard is it for you to pa y for the very basics like food, housing, medical care, and heating? Patient declined 02/10/2023 PHQ-2 Answer Date Recorded Patient Health Questionnaire-2 Score 0 05/06/2023 Hunger Vital Sign Answer Date Recorded Within the past 12 months, y ou worried that your food would run out before you got the money to buy more. Patient declined Within the past 12 months, t he food you bought just didn't last and you didn't have money to get more. Patient declined PRAPARE - Transportation Answer Date Re corded In the past 12 months, has l ack of transportation kept you from medical appointments or from getting medications? Patient declined 02/10/2023 In the past 12 months, has l ack of transportation kept you from meetings, work, or from getting things needed for daily living? Patient declined 02/10/2023 Housing Stability Vital Sign Answer Miguel e Recorded In the last 12 months, was t here a time when you were not able to pay the mortgage or rent on time? Patient declined 02/11/20 23 In the last 12 months, how many places have you lived? 1 02/10/2023 In the last 12 months, was t here a time when you did not have a steady place to sleep or slept in a detention (including now)? Patient declined 02/10/2023 Comments No Sex and Gender Information Value Date Recorded Sex Assigned at Female 04/30/2019 8:35 AM CDT Legal Sex Female 10:57 PM CDT Gender Identity Female 04/30/2019 8:35 AM CDT Sexual Orientation Straight 04/30/2019 8: 35 AM CDT documented as of this encounter Functional Status * Are you deaf or do you have serious difficulty hearing Answer Date of Assessment Author Status Yes 02/10/2023 5:23 PM Oneyda Martinez RN Active * Are you blind or do you have serious difficulty seeing, even when wearing glasses? Answer Date of Assessment Author Status No 02/10/2023 5:23 PM Oneyda Martinez RN Active * Do you have serious difficulty walking or climbing stairs? Answer Date of Assessment Author Status Yes 02/10/2023 5:23 PM Oneyda Martinez RN Active * Do you have difficulty dressing or bathing? Answer Date of Assessment Author Status No 02/10/2023 5:23 PM Oneyda Martinez RN Active * Because of a physical, mental, or emotional condition, do you have difficulty doing errands alone such as visiting a doctor's office or shopping? Answer Date of Assessment Author Status No 02/10/2023 5:23 PM Oneyda Martinez, RN Active documented as of this encounter Mental Status * Because of a physical, mental, or emotional condition, do you have serious difficulty concentrating, remembering, or making decisions? Answer Entry Date Author Status No 02/10/2023 5:23 PM Oneyda Martinez RN Active documented in this encounter Plan of Treatment Upcoming Encounters Date Type Department Care Team (Late st Contact Info) Description 07/09/2024 10:40 AM CDT Office Visit [facility] Medical [facility] Orthopedic & Sports Medicine - [place] [address] [place] [address] Daniel Koenig MD 670 [facility] [address] [place] [address] 08/19/2024 1:30 PM CDT Appointment [facility] Ultrasound [address] [facility] [place] [address] Gustavo Toscano MD Three [facility]. [facility] [address] [place], [place] [phone] 04/29/2025 10:00 AM CDT Office Visit [facility] [facility] [address] [place] [phone] Radha Mcgraw, ANP-BC Three [facility]. [facility] [address] [place], [place] [address] documented as of this encounter Visit Diagnoses Not on filedocumented in this encounter Additional Health Concerns Assessment Noted Time PHQ-9 Depression Total Score: 0 05/05/19 10:59 AM CDT documented as of this encounter Care Teams Die Cast Engineer Relationship Specialty Start Date End Date Elaina Gagnon PA-C [address] [facility] [address] [place], [place] [id number] PCP - General PHYSICIAN LAB SYSTEMS ANALYST 01/06/18 Gila Ibarra MD [facility] [place] [address] SURGERY 01/06/18 Kelsey Royal MD [address] DEPT RADIATION ONCOLOGY, [place] [address] RADIATION ONCOLOGY 01/06/18 Aravind Jones, HOME CARE ASSISTANT [address] DEPT RADIATION ONCOLOGY, [place] [address] NURSE PRACTITIONER 01/06/18 Leonardo Ramirez MD [address] DEPT RADIATION ONCOLOGY, [place] [address] ORTHOPAEDIC SURGERY 01/06/18 Scar Snow MD [address] [id number] Referring Physician OPHTHALMOLOGY 01/06/18 Abida Velásquez MD [address] [address] OBGYN 01/06/18 Rafael Roberts [address] [place] [address] [phone] DENTAL PAINT SPRAYER SANDBLASTER 01/06/18 Daniel Ceja MD [address] [place] [phone] Consulting Physician GENERAL SURGERY 01/06/18 Cornelius So III, MD [address] [place] [address] PULMONARY DISEASE 01/06/18 Ja Toscano MD [address] [place] [address] Referring Physician OTOLARYNGOLOGY 12/06/19 Gustavo Toscaon MD Three [facility]. [facility] [address] [place], [place] [address] Consulting Physician CARDIOVASCULAR DISEASE 04/25/22 Jocelyn Culp MD [address]15 [place] [address] ORTHOPAEDIC SURGERY 08/10/22 Sebastian Pratt MD 4700 [facility] [address] [address] ORTHOPAEDIC SURGERY 02/26/23 Dr. Rena Alexander Medical Oncologist ONCOLOGY 01/06/18 Dr. Taya Orourke, OPTOMETRY 01/06/18 Dr. Kyle Alejandro 01/06/18 Dr. Roe Malik CARDIOTHORACIC SURGERY 01/06/18 Dr. Dwight Javed ONCOLOGY 01/06/18 documented as of this encounter
--- OUTSIDE RECORDS SUMMARY | 2024-07-06 07:51 | XMS_ITS | Clinical Summary ---
Author Organization [facility] Address [address] [place] [address] Care Team Providers Care Customs Broker Name Role Phone Rogelio Perkins MD Unavailable [phone] [place] MD Unavailable [phone] Kyle Alejandro MD Unavailable [phone] Kelsey Royal MD PhD Unavailable Rena Alexander MD Unavailable [phone] Gila Ibarra MD Unavailable [phone] Aravind Jones FENCE INSTALLER Unavailable [phone] Anya Staton NP Unavailable [phone] Elaina Gagnon Primary Care Provider + Gustavo Toscano MD Unavailable Allergies Active Allergy Reactions Criticality Noted Date [...] (eight) hours as needed for pain Active qo-1-mqu-epa-fi sh oil-vit D3 [phone] ka-hf-gv-unit capsule Take 1 capsule by mouth nightly Juan Diego Green brand name (from [facility]) Active az-yo-xslt-FA-C a carb-vit K (WOMEN'S MULTIVITAMIN) 18 mg-400 [...] prolapse 11/28/2020 History of colon polyps 03/08/2020 halfway current use of aromatase inhibitor 08/2018 Bone disorder 04/24/2018 Encounter for follow-up exam ination after completed treatment for malignant neoplasm 04/23/2018 Seborrheic dermatitis 04/23/2018 History of breast cancer 04/20/2018 Personal history of irradiation 04/20/2018 Essential (primary) hypertension 12/01/2017 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, estrogen receptor positive 10/09/2017 Cancer Staging:Pathologic:Stage IIIA(pT4b, pN0, cM0, G2, ER: Positive, TN: Positive, HER2: Negative) - Signed by Kelsey Royal MD PhD on 01/02/2018 Clinical:Stage IIIB(cT4b, cN0, cM0, G2, ER+, TN+, HER2-) - Signed by Kelsey Royal MD [...] Femoral neck T-score 02-20-2018 -0.6 0.4 -1.7 - 0.0 -1.6 01-22-2022 0.0 0.1 -1.8 Other specified arthritis, multiple sites 2012 Urge and stress incontinence 03/12/2012 Resolved Problems Problem Noted Date Diagnosed Date Resolved Date Renal mass 12/26/2015 10/24/2018 Renal cell carcinoma 02/18/2014 023 Overview (10/31/2022): s/p nephrectomy at [place], 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 Encounters Date Type Department Care Team Description 06/30/2024 Telephone [facility] Orthopedics and Sports Medicine [address] [facility] [address] [place] [phone] Sebastian Pratt MD 06/08/2024 12:03 PM CDT - 06/08/2024 11:59 PM CDT Hospital Encounter [facility] [address] [place] [address] Chronic pain of left knee Discharge Disposition: Discharge to home or self care 06/08/2024 11:45 AM CDT - 06/08/2024 11:59 PM CDT Hospital Encounter [facility] [address] [place] [address] Chronic pain of right knee Discharge Disposition: Discharge to home or self care 06/08/2024 11:45 AM CDT Office Visit [facility] Orthopedics and Sports Medicine [address] [place] [address] [address] [place] [phone] Sebastian Pratt MD Chronic pain of right knee (Primary Dx); Chronic pain of left knee from Last 3 Months Immunizations Immunization Administration Dates Next Due Influenza, [...] 02/13/2022,01/16/2012 ZOSTER LIVE 01/01/2017 ZOSTER Recombinant 12/30/2018,09/08/2018 Surgical History Surgery Date Site/Laterality Comments IR FINE NEEDLE ASPIRATION W IMAGE GUIDANCE 02/01/2016 N/A BREAST LUMPECTOMY 02/18/2017 - 02/17/2018 Left IDC BLADDER SUSPENSION 02/19/1984 - 02/17/1985 LAPAROSCOPIC CHOLECYSTECTOMY 02/19/2000 - 02/17/2001 NEPHRECTOMY 02/18/2014 - 02/17/2015 Right renal cell carcinoma OTHER SURGICAL HISTORY 02/18/2017 - 02/17/2018 Right lung wedge; Right APPENDECTOMY 02/18/1961 - 02/17/1962 COMBINED HYSTEROSCOPY DIAGNOSTIC / D&C CATARACT EXTRACTION W/ INTRAOCULAR LENS IMPLANT 02/18/2017 - 02/17/2018 Both eyes done CYST REMOVAL Left invasive ductal carcinoma-left axillary ; 2018 HYSTERECTOMY 2020 SHOULDER SURGERY Left Rotator cuff repair 2022 CYSTOSCOPY with urethral sling x 2 2021 COLONOSCOPY 2023 OTHER SURGICAL HISTORY diverticular abscess drained 2014 Medical History Medical History Date Comments HTN (hypertension) Diverticulosis Renal cell cancer (HCC) Right; 2 015 had nephrectomy Heart murmur GERD (gastroesophageal reflux disease) Osteoarthritis Hyperlipidemia 03/12/2012 Migraines Unknown 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 History of COVID-19 2021; not ho spitalized Wears reading glasses Diverticulitis IBS (irritable bowel syndrome) History of breast cancer Left; 2 018; lumpectomy and radiation History of lung cancer RLL; 2015 (had lobectomy) History of colitis 2022; hospita lized 4 days Family History Medical History Relation Name Comments Cancer Cousin unknown type Miscarriages / Stillbirths Daughter Viviane Allen Rashes / Skin problems Daughter Viviane Allen Diabetes Father Artesia Halluin Heart attack Father Artesia Halluin Cancer Father's Brother Nicho Vizcarrauin unknown t ype Transient ischemic attack Mother Anesthesia problems Neg Hx Relation Name Status Comments Cousin Daughter Viviane Allen Father Artesia Halluin Father's Brother Nicho Colby Mother Social History Tobacco Use Types Packs/Day Years Used Date Smoking Tobacco: Former Cigarettes 0.8 20 0 02/18/1966 - 02/18/1986 Smokeless Tobacco: Never Tobacco Cessation:Counseling Given: Not Answered Alcohol Use Standard Drinks/Week Comments Yes 2 (1 standard drink = 0.6 oz pur e alcohol) [facility] Utilities Answer Date Recorded In the past 12 months has [employer], gas, oil, or water [employer] threatened to shut off services in your [...] often do you attend chur ch or yarsani services? More than 4 times per year 06/10/2023 Do you belong to any clubs o r organizations such as religion groups, unions, fraternal or athletic groups, or [...] place to sleep or slept in a nursing home (including now)? No 06/10/2023 Personal Safety Answer Date Recorded Have you ever been in or are you currently in a harmful physical or emotional relationship or is someone making you feel afraid or unsafe? Denies 06/07/2023 Comments No Sex and Gender Information Value Date Recorded Sex Assigned at Not on file Legal Sex Female 7:51 AM BOOKMOBILE DRIVER Gender Identity Female 11/03/2019 11:06 AM CDT Sexual Orientation Straight 11/03/2019 11 :06 AM CDT Obstetrics History Para Term AB IAB SAB Ectopic Multiple Livin g Live Births 2 Date Outcome GA Total Labor Labor/2nd/3rd Weight Sex Type Anes PTL Shanice A1 A5 Name Clin Last Filed Vital Signs Vital Sign Reading Time Taken Comments Blood Pressure 139/74 12/31/2023 1:18 PM BOOKMOBILE DRIVER Pulse 65 12/31/2023 1:18 PM BOOKMOBILE DRIVER Temperature 36.4 C (97.5 F) 12/31/2023 1:18 PM BOOKMOBILE DRIVER Respiratory Rate 16 12/31/2023 1:18 PM BOOKMOBILE DRIVER Oxygen Saturation 98% 12/31/2023 1:18 PM BOOKMOBILE DRIVER Inhaled Oxygen Concentration - - Weight 70 kg (154 lb 6.4 oz) 12/31/2023 1:18 PM BOOKMOBILE DRIVER Height 162.6 cm (5' 4 ) 06/07/2023 4:14 PM CDT Body Mass Index 26.5 06/07/2023 4:14 PM CDT Plan of Treatment Health Maintenance Due Date Last Done Comments Colon Cancer Screening-Colonoscopy 1950 Depression Screening 1950 Hepatitis B Screening 01/04/1968 Well Visit 65+ 2015 Covid-19 Vaccine (3 - Modern a risk series) 03/23/2021 02/23/2021, 06/03/2020, 05/06/2020 Osteoporosis Screening-Bone Density Scan 01/23/2024 01/22/2022, 09/04/2019, 02/20/2018 Fall Risk Assessment 06/09/2024 06/10/2023 Breast Cancer Screening-Mammogram 01/01/2025 01/02/2024, 10/31/2022, 10/27/2021, Additional history exists DTaP/Tdap/Td Vaccine (3 - Td or Tdap) 02/14/2032 02/13/2022, 01/16/2012 Zoster Vaccine Completed 12/30/2018, 08/19, 01/01/2017 Pneumococcal vaccine 65+ Completed 022, 04/16/2017, 02/08/2016, Additional history exists Hepatitis C Screening Completed 06/08/2023 Influenza Vaccine Completed 12/25/2023, , 01/28/2023, Additional history exists Medical Devices Implanted Type Area Posting Specialist Device Identifier Shelf Expiration Date Model / Serial / Lot [employer] Simplex P Radiopaque Full Dose Cement Bone Sterile 6191-1-010 - [id number] Implanted:Qty: 1 on 06/07/2023 by Sebastian Pratt MD at [facility] Right: Knee [employer] 06/17/2025 6191-1-010 / / [id number] [employer] Simplex P Radiopaque Full Dose Cement Bone Sterile 6191-1-010 - [id number] Implanted:Qty: 1 on 06/07/2023 by Sebastian Pratt MD at [facility] Right: Knee [employer] 06/17/2025 6191-1-010 / / [id number] [employer] Baseplate Tibial Knee Cemented Right Fixed Stemmed Persona Size E Tivanium [id number] - [id number] Implanted:Qty: 1 on 06/07/2023 by Sebastian Pratt MD at [facility] Right: Knee [employer] [id number] 03/20/2033 [id number] / / [id number] [employer] Persona Cemented Posterior Stabilize Knee Right 6 Standard [id number] - [id number] Implanted:Qty: 1 on 06/07/2023 by Sebastian Pratt MD at [facility] Right: Knee [employer] [id number] 01/22/2032 [id number] / / [id number] [employer] Persona 32mm Knee Component Patellar All Poly Latex Free 19-5637-621-32 - [id number] Implanted:Qty: 1 on 06/07/2023 by Sebastian Pratt MD at [facility] Right: Knee [employer] [id number] 01/08/2028 [id number] / / [id number] [employer] Insert Tibial Knee Vitamin E Fixed Rt Persona Maite E 16mm Size 6 9 E F Polyethylene [id number] - [id number] Implanted:Qty: 1 on 06/07/2023 by Sebastian Pratt MD at [facility] Right: Knee [employer] [id number] 11/30/2026 [id number] / / [id number] Procedures Procedure Name Priority Date/Time Associated Diagnosis Comments XR KNEE LEFT 3 VIEWS Schedule Routine, Read Routine (OP Routine) 06/08/2024 12:11 PM CDT Chronic pain of left knee XR KNEE RIGHT 3 VIEWS Schedule Routine, Read Routine (OP Routine) 06/08/2024 11:52 AM CDT Chronic pain of right knee SCREENING MAMMOGRAM BILATERAL W MAURICIO Schedule Routine, Read Routine (OP Routine) 01/02/2024 1:16 PM BOOKMOBILE DRIVER Screening mammogram, encounter for HEPATITIS PANEL, ACUTE Routine 06/08/2023 5:21 AM CDT DEXA AXIAL SKELETON BONE DENSITY 1 OR MORE SITES Schedule Routine, Read Routine (OP Routine) 02/20/2018 2:01 PM BOOKMOBILE DRIVER Malignant neoplasm of axillary tail of left [...] dislocation or tumor. There is evidence of ktts-yk-dgtt degenerative changes of the lateral compartment as well as evidence of advanced degenerative changes patellofemoral joint compartment IMPRESSION: 1. Evidence of advanced degenerative changes about the left knee with progression of nsmq-zu-acxa degenerative changes of the lateral compartment THIS IS AN ELECTRONICALLY VERIFIED FINAL REPORT 06/08/2024 12:45 PM - Electronically signed by Sebastian Pratt T: Report ID: [id number] Reading Location: [place] [address] Procedure Note Sebastian Pratt MD - 06/08/2024 EXAM DESCRIPTION: XR KNEE LEFT 3 VIEWS REASON FOR STUDY: pain COMPARISON: Left knee radiographs September 2021 FINDINGS: There is no evidence of fracture, dislocation or tumor. There is evidenceof oaae-ir-ljen degenerative changes of the lateral compartment as well as evidence of advanced degenerative changes patellofemoral joint compartment IMPRESSION: 1. Evidence of advanced degenerative changes about the leftknee with progression of ocgo-eb-skhg degenerative changes of the lateral compartment THIS IS AN ELECTRONICALLY VERIFIED FINAL REPORT 06/08/2024 12:45 PM - Electronically signed by Sebastian Pratt T: Report ID: [id number] Reading Location: [place] [address] Sebastian Pratt MD IMG XR PROCEDURES Final [...] signed by Sebastian Pratt T: Report ID: [id number] Reading Location: [place] [address] Procedure Note Sebastian Pratt MD - 06/08/2024 [...] signed by Sebastian Pratt T: Report ID: [id number] Reading Location: [place] [address] Sebastian Pratt MD IMG XR PROCEDURES Final Result * Screening Mammogram Bilateral W Mauricio (01/02/2024 1:16 PM BOOKMOBILE DRIVER) Anatomical Region Laterality Modality Breast Bilateral Mammography Impressions 01/02/2024 1:37 PM BOOKMOBILE DRIVER BI-RADS ATLAS category (overall): 1 - Negative There is no mammographic evidence of malignancy. A 1 year screening mammogram is recommended. The patient has been or will be contacted. We recommend annual screening mammography for women at average risk of breast cancer beginning at age 40, based on guidelines of the [place] [employer] (ACR Practice Parameter for the Performance of Screening and Diagnostic Mammography) and [place] [employer]. For women with and elevated risk of breast cancer, please refer to the ACR Practice Parameter for specific screening recommendations. The patient will be entered into a reminder system with a target due date of 1 year for her next screening exam. Narrative 01/02/2024 1:37 PM BOOKMOBILE DRIVER Screening Mammogram Bilateral W Mauricio: 01/02/24 The [...] Hep B core IgM Nonreactive Nonreactive NORMAN ALVARADO Comment: Interpretive Data If HepB Core IgM Ab is reported as Equivocal, a new sample should be drawn in two weeks for testing. Current interpretive data was last revised on 19. Hep C Ab Nonreactive Nonreactive NORMAN Comment: Antibodies to HCV not detected. Does [...] last revised on 2019. HepBsAg Nonreactive Nonreactive NORMAN ALVARADO Blood 06/08/2023 5:21 AM CDT 06/08/2023 5:51 AM CDT Avelina Mckeon NP LAB MICROBIOLOGY - GENERAL O RDERABLES Final Result NORMAN ALVARADO [address] [facility] Department [place] [address] * Dexa Axial Skeleton Bone Density 1 or 2 Site (02/20/2018 2:01 PM BOOKMOBILE DRIVER) Anatomical Region Laterality Modality Body N/A Radiographic Dominique ging Narrative 02/21/2018 12:37 PM BOOKMOBILE DRIVER Patient Name: Estrella Rhoades Date of : 1950 Date of scan: 02/20/2018 Bone mineral density was performed on a HoloElectrochaea Discovery Densitometer. Machine Cross-calibration and Precision studies [...] of Internal Medicine 114(11): 919-923 (1990) 2) Sanchez, Lancet 341 : 72-75 (1992) 3) Black, Journal Bone and Mineral Research 7(6): 633-8 (1991) 4) Swan, Journal Bone and Mineral Research 8(10):1227-33 (1992) The history and data sections of the bone mineral density scan were prepared by Letha Oviedo (R)(CBDT) who is accredited by the International Society of Clinical Densitometry. The overall patient assessment and scan interpretation were performed by Jasper Robins M.D. who is certified by the International Society of Clinical Densitometry. [id number] Rena Alexander MD IMMonique DXA PROCEDURES F inal Result from Last 3 Months or Most Recently Relevant to Health Maintenance Insurance [facility]IC[facility] FEDERAL MEDICARE [facility] MEDICARE [facility] FEDERAL Advance Directives For more information, please contact: [phone] * Full Code (Latest Code Status on File) Date Activated Date Inactivated Comments 06/07/2023 4:24 PM 06/10/2023 8:10 PM Care Teams Customs Broker Relationship Specialty Start Date End Date Elaina Gagnon PA [address] [place] [address] PCP - General Physician Cardiac Rn 04/03/23 Rogelio Perkins MD Medical Oncologist/Hematologis t Medical Oncology 10/25/17 North Pemberton MD [address] [place] [address] Referring Physician Surgery 10/25/17 Kyle Alejandro MD [address] [place] [address] Referring Physician Urology 10/25/17 Kelsey Royal MD PhD [address] [place] [address] Radiation Oncologist Radiation Oncology 01/02/18 Rena Alexander MD [address] [place], [place] [id number] Medical Oncologist/Hematologis t Medical Oncology 04/23/18 Gila Ibarra MD [address] [facility] [address] [address] [place], [place] [id number] Surgeon Surgical Oncology 04/23/18 Aravind Jones NP [address] [place], [place] [address] Nurse Practitioner Nurse Practitioner 10/11/20 Anya Staton NP [address] [place] [address] Nurse Practitioner Medical Oncology 06/27/21 [id number]|2024-07-06 07:51:00|2024-07-06 07:50:00|XMS_ITS|BKG DAEMON|External Medical Summaries|[id number]|" Encounter Summary Created on: July 06, 2024 Estrella Rhoades : 1950 Sex: Female Author Organization [facility] Address [address] [place] [address] Care Team Providers Care Customs Broker Name Role Phone Sebastian Blankenship MD Primary Care Provider [phone] Elaina Gagnon PA-C Primary Care Provider [phone] Gila Ibarra MD Unavailable [phone] Kelsey Royal MD Unavailable [phone] [place] MD Unavailable [phone] Aravind Jones NP Unavailable [phone] Leonardo Ramirez MD Unavailable [phone] Scar Snow MD Unavailable [phone] Abida Velásquez MD Unavailable [phone] Rafael Roberts Unavailable Daniel Ceja MD Unavailable Saray PEARSON MD, Carlos C Unavailable Ja Toscano MD Unavailable Gustavo Toscano MD Unavailable Jocelyn Culp MD Unavailable Sebastian Pratt MD Unavailable [phone] Encounter Details Date Type Department Care Team (Late st Contact Info) Description 04/16/[address] [facility] Conversion , Generic Conversion, Social History Tobacco Use [...] Description 07/09/2024 10:40 AM CDT Office Visit [facility] Orthopedic & Sports Medicine - [place] [address] [place] [address] Daniel Koenig MD [address] [address] [place] [address] 08/19/2024 1:30 PM CDT Appointment [facility] [address] [place] [address] Gustavo Toscano MD [facility] [address] [place], [place] [address] 04/29/2025 10:00 AM CDT Office Visit [facility] [address] Radha Mcgraw, ANP-BC [facility] [address] [place], [place] [address] documented as of this encounter Visit Diagnoses Not on filedocumented in this encounter Additional Health Concerns Infection Onset Date Last Indicated Resolved Time COVID-19 Rule Out 03/28/2020 03/28/2020 03/29/2020 8:46 PM BOOKMOBILE DRIVER documented as of this encounter Care Teams Customs Broker Relationship Specialty Start Date End Date Sebastian Blankenship MD [id number] [place] [address] PCP - General 03/23/14 01/05/18 Elaina Gagnon, PA-C [address] [facility] [address] [place] [address] PCP - General PHYSICIAN ENGRAVER SIGNATURE 01/06/18 Gila Ibarra MD [facility] [place] [address] SURGERY 01/06/18 Kelsey Royal MD [address] DEPT RADIATION ONCOLOGY, [place] [address] RADIATION ONCOLOGY 01/06/18 [place] MD [address] DEPT RADIATION ONCOLOGY, [place] [address] SURGERY 01/06/18 12/05/19 Aravind Jones, FENCE INSTALLER [address] DEPT RADIATION ONCOLOGY, [place] [address] NURSE PRACTITIONER 01/06/18 Leonardo Ramirez MD [address] DEPT RADIATION ONCOLOGY, [place] [address] ORTHOPAEDIC SURGERY 01/06/18 Scar Snow MD [address] [address] Referring Physician OPHTHALMOLOGY 01/06/18 Abida Velásquez MD [address] [address] OBGYN 01/06/18 Rafael Roberts [address] [place] [address] DENTAL SUPPORT SERVICE TECH 01/06/18 Daniel Ceja MD [address] [place] [address] Consulting Physician GENERAL SURGERY 01/06/18 Cornelius So III, MD [address] [place] [address] PULMONARY DISEASE 01/06/18 Ja Toscano MD [address] [place] [address] Referring Physician OTOLARYNGOLOGY 12/06/19 Gustavo Toscano MD [address] [address] Consulting Physician CARDIOVASCULAR DISEASE 04/25/22 Jocelyn Culp MD [address] [place] [address] ORTHOPAEDIC SURGERY 08/10/22 Sebastian Pratt MD [address] [address] ORTHOPAEDIC SURGERY 02/26/23 Dr. Rena Alexander Medical Oncologist ONCOLOGY 01/06/18 Dr. Taya Orourke, OPTOMETRY 01/06/18 Dr. Kyle Alejandro 01/06/18 Dr. Roe Malik CARDIOTHORACIC SURGERY 01/06/18 Dr. Dwight Javed ONCOLOGY 01/06/18 documented as of this encounter "
--- OUTSIDE RECORDS SUMMARY | 2024-07-06 07:51 | XMS_ITS | Encounter Summary ---
Author Organization [facility] Address [facility] [place] [address] Care Team Providers Care Philosophy Faculty Member Name Role Phone Elaina Gagnon PA-C Primary Care Provider [phone] Gila Ibarra MD Unavailable [phone] Kelsey Royal MD Unavailable [phone] Aravind Jones NP Unavailable Leonardo Ramirez MD Unavailable [phone] Scar Snow MD Unavailable Abida Velásquez MD Unavailable [phone] Rafael Roberts Unavailable Daniel Ceja MD Unavailable [phone] Saray PEARSON MD, Carlos C Unavailable Ja Toscano MD Unavailable Gustavo Toscano MD Unavailable Jocelyn Culp MD Unavailable Sebastian Pratt MD Unavailable Encounter Details Date Type Department Care Team (Late st Contact Info) Description 05/17/[address] [facility] [address] [place] [phone] Elaina Gagnon PA-C [address] [place] [address] Mammogram Social History Tobacco Use Types Packs/Day Years Used Date Smoking Tobacco: Former Cigarettes 1 19 0 02/18/1967 - 02/18/1986 Passive Smoke Exposure: Past Smokeless Tobacco: Never Comments:Former, Quit 1986 Alcohol Use Standard Drinks/Week Comments Yes 3 (1 standard drink = 0.6 oz pure alcohol) drinks occasional shot or two of whiskey or liquor couple or 3 days a week [facility] Verutaities Answer Date Recorded In the past 12 months has [facility] [employer], gas, oil, or water [employer] threatened to shut off services in your [...] place to sleep or slept in a fpc (including now)? Patient declined 02/10/2023 Comments No [...] Status No 02/10/2023 5:23 PM Oneyda Martinez, CINTHYA Active * Because of a physical, mental, or emotional condition, do you have difficulty doing errands alone such as visiting a doctor's office or shopping? Answer Date of Assessment Author Status No 02/10/2023 5:23 PM Oneyda Martinez RN Active documented as of this encounter [...] Description 07/09/2024 10:40 AM CDT Office Visit [facility] - [place] [address] [place] [address] Daniel Koenig MD [address] [facility] [address] [place] [address] 08/19/2024 1:[address] [facility] Ultrasound [address] [place], [place] [address] Gustavo Toscano MD [facility] [address] [place], [place] [id number] 04/29/2025 10:00 AM CDT Office Visit [facility] [address] [place] [phone] Radha Mcgraw, ANP-BC Three [facility]. [facility] [address] [place], [place] [address] documented as of this encounter Visit Diagnoses Not on filedocumented in this encounter Additional Health Concerns Assessment Noted Time PHQ-9 Depression Total Score: 0 05/05/19 22 10:59 AM CDT documented as of this encounter Care Teams Philosophy Faculty Member Relationship Specialty Start Date End Date Elaina Gagnon PA-C [address] [facility] [address] [place] [address] PCP - General PHYSICIAN STOCK WORKER AND DELIVERER 01/06/18 Gila Ibarra MD [facility] [place] [address] SURGERY 01/06/18 Kelsey Royal MD [address] [facility], [place] [address] RADIATION ONCOLOGY 01/06/18 Aravind Jones, NUMERICAL CONTROL TOOL PROGRAMMER [address] [facility] DEPT [facility]Y, [place] [address] NURSE PRACTITIONER 01/06/18 Leonardo Ramirez MD [address] DEPT RAD[facility] ONCOLOGY, [place] [address] ORTHOPAEDIC SURGERY 01/06/18 Scar Snow MD [address] [address] Referring Physician OPHTHALMOLOGY 01/06/18 Abida Velásquez MD [address] [place] [address] OBGYN 01/06/18 Rafael Robetrs [address] [place] [phone] DENTAL ELECTRONIC COMMERCE SPECIALIST 01/06/18 Daniel Ceja MD [address] [place] [phone] Consulting Physician GENERAL SURGERY 01/06/18 Cornelius So III, MD [address] [place] [address] PULMONARY DISEASE 01/06/18 Ja Toscano MD [address] [place] [address] Referring Physician OTOLARYNGOLOGY 12/06/19 Gustavo Toscano MD [address] [address] Consulting Physician CARDIOVASCULAR DISEASE 04/25/22 Jocelyn Culp MD [address] [place] [address] ORTHOPAEDIC SURGERY 08/10/22 Sebastian Pratt MD [address] [address] ORTHOPAEDIC SURGERY 02/26/23 Dr. Rena Alexander Medical Oncologist ONCOLOGY 01/06/18 Dr. Taya Orourke, OPTOMETRY 01/06/18 Dr. Kyle Alejandro 01/06/18 Dr. Roe Malik CARDIOTHORACIC SURGERY 01/06/18 Dr. Dwight Javed ONCOLOGY 01/06/18 documented as of this encounter
--- OUTSIDE RECORDS SUMMARY | 2024-07-06 07:51 | XMS_ITS | Encounter Summary ---
Author Organization [facility] Address [facility] [place] [address] Care Team Providers Care Information Security Specialist Name Role Phone Elaina Gagnon PA-C Primary Care Provider [phone] Gila Ibarra MD Unavailable Kelsey Royal MD Unavailable [phone] Aravind Jones LEI MAKER Unavailable Leonardo Ramirez MD Unavailable Scar Snow MD Unavailable [phone] Abida Velásquez MD Unavailable [phone] Rafael Roberts Unavailable Daniel Ceja MD Unavailable [phone] Saray PEARSON MD, Carlos C Unavailable Ja Toscano MD Unavailable Gustavo Toscano MD Unavailable Jocelyn Culp MD Unavailable Sebastian Pratt MD Unavailable Encounter Details Date Type Department Care Team (Late st Contact Info) Description 04/13/2021 Prep for Procedure [facility] [place] [address] Maged Parry MD [address] [facility] [place] [address] Social History Tobacco Use Types Packs/Day Years Used Date Smoking Tobacco: Former Cigarettes 1 08 03 968 - 1986 Smokeless Tobacco: Never Alcohol Use Standard Drinks/Week Comments Yes 3 (1 standard drink = 0.6 oz pur e alcohol) AUDIT-C Answer Date Recorded Frequency of Alcohol Consumption 2-3 times a wee k 12/30/2017 Average Number of Drinks 1 or 2 018 Frequency of Binge Drinking Never 12/19 PHQ-2 Answer Date Recorded PHQ-2 Score - If the patient scores above 3, please move on to questions 3-9 0 04/17/2021 Comments No Sex and Gender Information Value Date Recorded Sex Assigned at Female 04/30/2019 8:35 AM CDT Legal Sex Female 10:57 PM CDT Gender Identity Female 04/30/2019 8:35 AM CDT Sexual Orientation Straight 04/30/2019 8: 35 AM CDT COVID-19 Exposure Response Date Recorded In the last 10 days, have yo u been in contact with someone who was confirmed or suspected to have Coronavirus/COVID-19? No / Unsure 04/15/2021 11:47 AM GEAR HOBBER documented as of this encounter Functional Status * Calculated C-SSRS Risk Score (Lifetime/Recent) Answer Date of Assessment Author Status No Risk Indicated 04/15/2021 11:51 AM Enriqueta Pulliam RN Active * Daniels Suicide Severity Rating Scale (Screener/Recent Self-Report) Question Answer Date of Assessment Author Status 1. Wish to be (Past 1 Month) No 04/15/2021 11:51 AM Enriqueta Pulliam RN Active 2. Non-Specific Active Suicidal Thoughts (Past 1 Month) No 04/15/2021 11:51 AM Enriqueta Pulliam RN Active 6. Suicidal Behavior (Lifetime) No 04/15/2021 11:51 AM Enriqueta Pulliam RN Active documented as of this encounter H&P Notes * Maged Parry MD - 04/13/2021 2:52 PM CST History and Physical SUBJECTIVE Patient is 71-year-old female White Or Not Of / Origin with chief complaintof stress urinary incontience. She desires definitive surgical management. Past Medical History: Diagnosis Date â€¢ Bilateral sensorineural hearing loss 12/06/2019 â€¢ Diverticulitis and abscess s/p CT guided drainage â€¢ Diverticulosis â€¢ Epidermoid cyst 09/13/2017 excised â€¢ Essential (primary) hypertension 12/01/2017 â€¢ GERD (gastroesophageal reflux disease) 03/12/2012 â€¢ Grade II diastolic dysfunction 04/2020 seen on echo â€¢ Hepatic cyst 10/01/[address] â€¢ Hyperlipidemia 03/12/2012 â€¢ Impaired fasting glucose â€¢ Irritable bowel syndrome (IBS) 03/12/2012 â€¢ halfway current use of aromatase inhibitor 04/24/2018 â€¢ Malignant neoplasm of breast (CMS/HCC) 10/09/2017 Lumpectomy and re-excision, s/p radiation and hormonal treatments â€¢ Mild aortic stenosis 04/2020 seen on Echo â€¢ Mild left atrial enlargement 04/2020 seen on echo â€¢ Mild tricuspid regurgitation by prior echocardiogram 04/2020 â€¢ Moderate mitral regurgitation by prior echocardiogram 04/2020 â€¢ Osteopenia 03/12/2012 â€¢ Other specified arthritis, multiple sites 03/12/2012 left shoulder 2013, AC â€¢ Personal history of irradiation 04/20/2018 â€¢ 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 Orourke â€¢ APPENDECTOMY Dr. Ramsey â€¢ BREAST LUMPECTOMY left axillae, also had recision at [facility] â€¢ CATARACT EXTRACTION Bilateral 2018 05/05 right, 07/05 left, Dr. Snow â€¢ CHOLECYSTECTOMY Dr. rinaldi â€¢ COLONOSCOPY 10/2015 Dr. Hong repeat 2019 â€¢ COLONOSCOPY N/A 03/31/2020 COLONOSCOPY WITHOUT BIOPSIES performed by Gabriela Miller MD at [facility] OR â€¢ COLPOSCOPY,BX CERVIX/ENDOCERV CURR 1998 Dr. Crook â€¢ DILATION AND CURETTAGE â€¢ DRAIN SKIN ABSCESS SIMPLE abdomen â€¢ EXCISION CYST epidermal cyst â€¢ FINE NEEDLE ASPIRATION nondule abd, benign â€¢ HC SALPINGO/OOPHORECTOMY LAPARASCOPIC Bilateral 12/2020 Dr. Parry, left tube w benign paratubal cyst â€¢ HYSTERECTOMY 01/05/2021 â€¢ IR ABSCESS/FLUID DRAIN ABDOMINAL diverticular abscess drainage â€¢ KNEE ARTHROCENTESIS Right supartz inj, Dr. ramirez â€¢ LAPAROSCOPIC SUPRACERVICAL HYSTERECTOMY 12/2020 Dr. Parry, atrophic endometrium and adenomyosis â€¢ MYRINGOTOMY WITH TUBE INSERTION Left â€¢ NEPHRECTOMY Right renal cell carcinoma â€¢ ONM NUCLEAR STRESS TEST wnl â€¢ REMV LUNG,WEDGE RESECTION Right renal cell carcinoma â€¢ SUSPENSION BLADDER â€¢ USE ECHOCARDIOGRAM 04/2020 EF 55-60%, L ventricular diastolic fxn is abn (grade 2 pseudonormal pattenr), left atrium mildly enlarged, mild AV stenosis, mild-moderate MR, mild TR (Not in a hospital admission) Current Outpatient Medications Medication Sig Dispense Refill â€¢ acetaminophen CR 650 MG Tab CR 8 hr tablet Take 650 mg by mouth as needed. â€¢ AMLODIPINE 5 MG tablet TAKE 1 TABLET BY MOUTH EVERY DAY 90 tablet 3 â€¢ anastrozole 1 MG tablet Take 1 mg by mouth daily. 3 â€¢ calcium carbonate (CALCIUM 600) 1500 (600 Ca) MG tablet Take 1 tablet by mouth 2 (two) times a day. â€¢ Cholecalciferol (VITAMIN D3) 1000 units Cap Take 1 capsule by mouth daily. â€¢ Cyanocobalamin 100 MCG Tab Take 100 mcg by mouth daily. â€¢ Docosahexaenoic Acid ( DHA) 200 MG Cap Take 2 capsules by mouth. â€¢ LISINOPRIL 20 MG tablet TAKE 1 TABLET BY MOUTH EVERY DAY 90 tablet 3 â€¢ Multiple Vitamins-Minerals (MULTIVITAMIN WOMEN) Tab Take 1 tablet by mouth daily. â€¢ Nutritional Supplements (CELLULAR FORTE OR) Take 1 tablet by mouth 2 (two) times a day. IP-6 and Inositol 800 and 220 mg 1 cap BID â€¢ OMEPRAZOLE 20 MG capsule TAKE 1 CAPSULE BY MOUTH EVERY DAY 90 capsule 3 â€¢ oxybutynin XL 5 MG 24 hr tablet Take 1 tablet (5 mg total) by mouth daily. 90 tablet 3 â€¢ Probiotic Product (ALIGN) Cap Take 4 mg by mouth daily. â€¢ ROSUVASTATIN 20 MG tablet TAKE 1 TABLET BY MOUTH EVERY DAY 90 tablet 3 â€¢ vitamin C 1000 MG tablet Take by mouth daily. No current facility-administered medications for this visit. Allergies Allergen Reactions â€¢ Chlorhexidine Hives â€¢ Tape Rash Social History Tobacco Use â€¢ Smoking status: Former Smoker Packs/day: 1.00 Years: 19.00 Pack years: 19.00 Types: Cigarettes Quit date: 1986 Years since quittin.1 â€¢ Smokeless tobacco: Never Used Substance Use Topics â€¢ Alcohol use: Yes Alcohol/week: 3.0 - 6.0 standard drinks Types: 3 - 6 Standard drinks or equivalent per week Family History Problem Relation Name Age of Onset â€¢ Stroke Mother â€¢ Other (alzheimers) Mother â€¢ Heart Disease Father â€¢ Diabetes Father â€¢ Heart Attack Father â€¢ COPD Brother â€¢ Diabetes Brother â€¢ Other (alzheimers) Maternal Aunt â€¢ Other (alzheimers) Maternal Uncle OBJECTIVE Vitals: 24hr Min/Max: @FLOWSTAT(6,8,5,9,10:24::1)@ Most Recent : There were no vitals filed for this visit. @[id number]@ @[facility]@ Physical Exam: General: Patient is alert and oriented in no acute distress. Head: Normocephalic, atraumatic. Nares are symmetric without nasal flaring or respiratory distress.No lip cyanosis. Eyes: Sclera anicteric. Cardiovascular: Peripheral perfusion appears adequate. No digital clubbing or cyanosis present. Chest: Non-labored respirations. Comfortable respiratory effort without recruitment of accessory respiratory muscles. Abdominal: Abdomen soft, nontender, nondistended. No palpable masses. Gu: Urethral mobility noted Musculoskeletal: Normal station and posture. Moves all extremities symmetrically. Neurological: No focal neurologic deficit. Psychiatric: Appropriate affect and mood. Skin: Normal coloration and turgor. Hematological/Immunological: No bleeding gums or jaundice. Lymphatic: No femoral or inguinal palpable lymphadenopathy. Assessment: Stress Urinary Incontinence Plan: Pt has elected to undergo Mid-urethral sling. Risks, benefits and alternative d/w the patient. Risks include but not limited to bleeding, infection, pain, anesthesia, damage to surrounding organs. There is a risk of failure, recurrance and that this procedure will not help OAB symptoms if present and in some cases may worsen. There is a risk of mesh erosion or exposure in the vagina or urinary tract. There is a risk of urinary retention requiring catheterization and secondary procedure to lossen, cut or remove the sling. There is a risk of returning to the OR for any of the above listed complications. Patient understands and wishes to proceed. HOBBER * Maged Parry MD - 04/13/2021 2:52 PM CST History and Physical SUBJECTIVE Patient is 71-year-old female White Or Not Of / Origin with chief complaintof stress urinary incontience. She desires definitive surgical management. Past Medical History: Diagnosis Date â€¢ Bilateral sensorineural hearing loss 12/06/2019 â€¢ Diverticulitis and abscess s/p CT guided drainage â€¢ Diverticulitis 03/2021 â€¢ Diverticulosis â€¢ Epidermoid cyst 09/13/2017 excised â€¢ Essential (primary) hypertension 12/01/2017 â€¢ GERD (gastroesophageal reflux disease) 03/12/2012 â€¢ Grade II diastolic dysfunction 04/2020 seen on echo â€¢ Hepatic cyst 10/01/[address] â€¢ Hyperlipidemia 03/12/2012 â€¢ Impaired fasting glucose â€¢ Irritable bowel syndrome (IBS) 03/12/2012 â€¢ halfway current use of aromatase inhibitor 04/24/2018 â€¢ Malignant neoplasm of breast (CMS/HCC) 10/09/2017 Lumpectomy and re-excision, s/p radiation and hormonal treatments â€¢ Mild aortic stenosis 04/2020 seen on Echo â€¢ Mild left atrial enlargement 04/2020 seen on echo â€¢ Mild tricuspid regurgitation by prior echocardiogram 04/2020 â€¢ Moderate mitral regurgitation by prior echocardiogram 04/2020 â€¢ Osteopenia 03/12/2012 â€¢ Other specified arthritis, multiple sites 03/12/2012 left shoulder 2013, AC â€¢ Personal history of irradiation 04/20/2018 â€¢ Polyarthritis 2012 thought to be viral â€¢ Renal cell carcinoma (CMS/HCC) 2015 s/p nephrectomy at [place], 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 â€¢ Seborrheic dermatitis â€¢ Splenic abscess 12/26/2015 â€¢ Splenic cyst 10/01/[address] â€¢ Urge and stress incontinence 03/12/2012 overactive bladder Past Surgical History: Procedure Laterality Date â€¢ ABDOMINAL HERNIA REPAIR Dr. Orourke â€¢ APPENDECTOMY Dr. Ramsey â€¢ BREAST LUMPECTOMY left axillae, also had recision at [facility] â€¢ CATARACT EXTRACTION Bilateral 05/05 right, 07/05 left, Dr. Snow â€¢ CHOLECYSTECTOMY Dr. rinaldi â€¢ COLONOSCOPY 10/2015 Dr. Hong repeat 2019 â€¢ COLONOSCOPY N/A 03/31/2020 COLONOSCOPY WITHOUT BIOPSIES performed by Gabriela Miller MD at [facility] OR â€¢ COLPOSCOPY,BX CERVIX/ENDOCERV CURR 1998 Dr. Crook â€¢ DILATION AND CURETTAGE â€¢ DRAIN SKIN ABSCESS SIMPLE abdomen â€¢ EXCISION CYST epidermal cyst â€¢ FINE NEEDLE ASPIRATION nondule abd, benign â€¢ HC SALPINGO/OOPHORECTOMY LAPARASCOPIC Bilateral 12/2020 Dr. Parry, left tube w benign paratubal cyst â€¢ HYSTERECTOMY â€¢ IR ABSCESS/FLUID DRAIN ABDOMINAL diverticular abscess drainage â€¢ KNEE ARTHROCENTESIS Right supartz inj, Dr. ramirez â€¢ LAPAROSCOPIC SUPRACERVICAL HYSTERECTOMY 12/2020 Dr. Parry, atrophic endometrium and adenomyosis w mesh for prolapse â€¢ MYRINGOTOMY WITH TUBE INSERTION Left â€¢ NEPHRECTOMY Right renal cell carcinoma â€¢ ONM NUCLEAR STRESS TEST wnl â€¢ REMV LUNG,WEDGE RESECTION Right renal cell carcinoma â€¢ SUSPENSION BLADDER â€¢ USE ECHOCARDIOGRAM 04/2020 EF 55-60%, L ventricular diastolic fxn is abn (grade 2 pseudonormal pattenr), left atrium mildly enlarged, mild AV stenosis, mild-moderate MR, mild TR (Not in a hospital admission) Current Outpatient Medications Medication Sig Dispense Refill â€¢ acetaminophen CR 650 MG Tab CR 8 hr tablet Take 650 mg by mouth as needed. â€¢ AMLODIPINE 5 MG tablet TAKE 1 TABLET BY MOUTH EVERY DAY 90 tablet 3 â€¢ anastrozole 1 MG tablet Take 1 mg by mouth daily. 3 â€¢ calcium carbonate (CALCIUM 600) 1500 (600 Ca) MG tablet Take 1 tablet by mouth 2 (two) times a day. â€¢ Cholecalciferol (VITAMIN D3) 1000 units Cap Take 1 capsule by mouth daily. â€¢ Cyanocobalamin 100 MCG Tab Take 100 mcg by mouth daily. â€¢ Docosahexaenoic Acid ( DHA) 200 MG Cap Take 2 capsules by mouth. â€¢ LISINOPRIL 20 MG tablet TAKE 1 TABLET BY MOUTH EVERY DAY 90 tablet 3 â€¢ Multiple Vitamin (MULTIVITAMIN ADULT OR) multivitamin tablet â€¢ Nutritional Supplements (CELLULAR FORTE OR) Take 1 tablet by mouth 2 (two) times a day. IP-6 and Inositol 800 and 220 mg 1 cap BID â€¢ omega-3 acid 1000 MG capsule Ovega-3 500 mg-270 mg-135 mg capsule â€¢ OMEPRAZOLE 20 MG capsule TAKE 1 CAPSULE BY MOUTH EVERY DAY 90 capsule 3 â€¢ oxybutynin XL 5 MG 24 hr tablet Take 1 tablet (5 mg total) by mouth daily. 90 tablet 3 â€¢ Probiotic Product (ALIGN) Cap Take 4 mg by mouth daily. â€¢ rosuvastatin 20 MG tablet Take 1 tablet (20 mg total) by mouth daily. Take 1 tablet by mouth daily - DUE FOR APPOINTMENT AND LABS 90 tablet 0 â€¢ vitamin C 1000 MG tablet Take by mouth daily. â€¢ zoledronic acid (ZOMETA) 4 MG/100ML infusion Zometa No current facility-administered medications for this visit. Allergies Allergen Reactions â€¢ Chlorhexidine Hives â€¢ Tape Rash Social History Tobacco Use â€¢ Smoking status: Former Smoker Packs/day: 1.00 Years: 19.00 Pack years: 19.00 Types: Cigarettes Quit date: 1986 Years since quittin.2 â€¢ Smokeless tobacco: Never Used Substance Use Topics â€¢ Alcohol use: Yes Alcohol/week: 3.0 - 6.0 standard drinks Types: 3 - 6 Standard drinks or equivalent per week Family History Problem Relation Name Age of Onset â€¢ Stroke Mother â€¢ Other (alzheimers) Mother â€¢ Heart Disease Father â€¢ Diabetes Father â€¢ Heart Attack Father â€¢ COPD Brother â€¢ Diabetes Brother â€¢ Other (alzheimers) Maternal Aunt â€¢ Other (alzheimers) Maternal Uncle Physical Exam: General: Patient is alert and oriented in no acute distress. Head: Normocephalic, atraumatic. Nares are symmetric without nasal flaring or respiratory distress.No lip cyanosis. Eyes: Sclera anicteric. Cardiovascular: Peripheral perfusion appears adequate. No digital clubbing or cyanosis present. Chest: Non-labored respirations. Comfortable respiratory effort without recruitment of accessory respiratory muscles. Abdominal: Abdomen soft, nontender, nondistended. No palpable masses. Gu: Urethral mobility noted Musculoskeletal: Normal station and posture. Moves all extremities symmetrically. Neurological: No focal neurologic deficit. Psychiatric: Appropriate affect and mood. Skin: Normal coloration and turgor. Hematological/Immunological: No bleeding gums or jaundice. Lymphatic: No femoral or inguinal palpable lymphadenopathy. Assessment: Stress Urinary Incontinence Plan: Pt has elected to undergo Mid-urethral sling. Risks, benefits and alternative d/w the patient. Risks include but not limited to bleeding, infection, pain, anesthesia, damage to surrounding organs. There is a risk of failure, recurrance and that this procedure will not help OAB symptoms if present and in some cases may worsen. There is a risk of mesh erosion or exposure in the vagina or urinary tract. There is a risk of urinary retention requiring catheterization and secondary procedure to lossen, cut or remove the sling. There is a risk of returning to the OR for any of the above listed complications. Patient understands and wishes to proceed. documented in this encounter Plan of Treatment Upcoming Encounters Date Type Department Care Team (Late st Contact Info) Description 07/09/2024 10:40 AM CDT Office Visit [facility] Orthopedic & Sports Medicine - [place] [address] [place] [address] Daniel Koenig MD [address] [address] [place] [address] 08/19/2024 1:30 PM CDT Appointment [facility] [address] [place] [address] Gustavo Toscano MD [facility]. [address] [place], [place] [address] 04/29/2025 10:00 AM CDT Office Visit [facility] [address] [place] [phone] Radha Mcgraw, ANP-[facility]. [address] [place] [address] documented as of this encounter Visit Diagnoses Diagnosis Stress incontinence- Primary Female stress incontinence documented in this encounter Additional Health Concerns Assessment Noted Time PHQ-9 Depression Total Score: 0 03/16/19 22 2:40 PM GEAR HOBBER documented as of this encounter Care Teams Information Security Specialist Relationship Specialty Start Date End Date Elaina Gagnon, PA-C [address] [facility] [address] [place] [address] PCP - General PHYSICIAN WAREHOUSE SHIPPING ASSOCIATE 01/06/18 Gila Ibarra MD [address] [place] [phone] SURGERY 01/06/18 Kelsey Royal MD [address] DEPT RADIATION ONCOLOGY, [place] [address] RADIATION ONCOLOGY 01/06/18 Aravind Jones, LEI MAKER [address] [facility] DEPT RADIATION ONCOLOGY, [place] [address] NURSE PRACTITIONER 01/06/18 [place] [address] [place] [address] # [place] [address] ORTHOPAEDIC SURGERY 01/06/18 Scar Snow MD [address] [place] [address] Referring Physician OPHTHALMOLOGY 01/06/18 Abida Velásquez MD [address] [place] [address] OBGYN 01/06/18 Rafael Roberts [address] [place] [address] [phone] DENTAL BRUSH STAINER 01/06/18 Daniel Ceja MD [address] [place] [address] [phone] Consulting Physician GENERAL SURGERY 01/06/18 Cornelius So III, MD [address] [place] [address] PULMONARY DISEASE 01/06/18 Ja Toscano MD [address] [place] [address] Referring Physician OTOLARYNGOLOGY 12/06/19 Gustavo Toscano MD [facility]. [facility] [address] [place] [address] Consulting Physician CARDIOVASCULAR DISEASE 04/25/22 Jocelyn Culp MD [address] [place] [address] ORTHOPAEDIC SURGERY 08/10/22 Sebastian Pratt MD [address] [facility] [address] [place] [address] ORTHOPAEDIC SURGERY 02/26/23 Dr. Rena Alexander Medical Oncologist ONCOLOGY 01/06/18 Dr. Taya Orourke, OD OPTOMETRY 01/06/18 Dr. Kyle Alejandro 01/06/18 Dr. Roe Malik CARDIOTHORACIC SURGERY 01/06/18 Dr. Dwight Javed ONCOLOGY 01/06/18 documented as of this encounter
--- OUTSIDE RECORDS SUMMARY | 2024-07-06 07:51 | XMS_ITS | Encounter Summary ---
Author Organization [facility] Address [facility] [place] [address] Care Team Providers Care Thermoforming Operator Name Role Phone Sebastian Blankenship MD Primary Care Provider Elaina Gagnon PA-C Primary Care Provider Gila Ibarra MD Unavailable Kelsey Royal MD Unavailable [phone] [place] MD Unavailable [phone] Aravind Jones NP Unavailable [phone] Leonardo Ramirez MD Unavailable Scar Snow MD Unavailable [phone] Abida Velásquez MD Unavailable [phone] Rafael Roberts Unavailable Daniel Ceja MD Unavailable Saray PEARSON MD, Carlos C Unavailable Ja Toscano MD Unavailable Gustavo Toscano MD Unavailable Jocelyn Culp MD Unavailable Sebastian Pratt MD Unavailable [phone] Encounter Details Date Type Department Care Team (Late st Contact Info) Description 12/26/2015 Abstract [facility] Sebastian Blankenship MD [id number] [place] [address] Social History Tobacco Use Types Packs/Day Years [...] * Letter - Sebastian Blankenship MD - 12/26/2015 12:00 AM CST Dec 26, 2015 Dorcas Becerra [address] [place] [address] Dear Dorcas Becerra, Thank you for choosing [facility] for your health care needs. We appreciate the opportunity to help you maintain your well being. You recently attended the health fair. Your results came back normal or at goal. Please remember to follow up as discussed at your last appointment. If you have any questions please feel free to call the office at [phone], Option #3 or Option #1 to make an appointment to discuss these results. Respectfully Yours, Electronically Signed by: Sebastian Blankenship MD Cc: Patients Medical Record LOP DREDGER documented in this encounter Plan of Treatment Upcoming Encounters Date Type Department Care Team (Late st Contact Info) Description 07/09/2024 10:40 AM CDT Office Visit [facility] Medical [facility] Orthopedic & Sports Medicine - [place] [address] [place] [address] Daniel Koenig MD [address] [address] [place] [address] 08/19/2024 1:30 PM CDT Appointment [facility] [address] [place] [address] Gustavo Toscano MD Three [facility]. [facility] [address] [place], [place] [address] 04/29/2025 10:00 AM CDT Office Visit [facility] [address] [place] [phone] Radha Mcgraw, ANP- Three [facility]. [facility] [address] [place] [address] documented as of this encounter Visit Diagnoses Not on filedocumented in this encounter Additional Health Concerns Infection Onset Date Last Indicated Resolved Time COVID-19 Rule Out 03/28/2020 03/28/2020 03/29/2020 8:46 PM SCALLOP DREDGER documented as of this encounter Care Teams Thermoforming Operator Relationship Specialty Start Date End Date Sebastian Blankenship MD [id number] [place] [address] PCP - General 03/23/14 01/05/18 Elaina Gagnon, PAAlvaC [address] [facility] [address] [place] [address] PCP - General PHYSICIAN CHIP PERSON 01/06/18 Gila Ibarra MD [facility] [place] [address] SURGERY 01/06/18 Kelsey Royal MD [address] DEPT RADIATION ONCOLOGY, [place] [address] RADIATION ONCOLOGY 01/06/18 [place] MD [address] DEPT RADIATION ONCOLOGY, [place] [address] SURGERY 01/06/18 12/05/19 Aravind Jones, ORNAMENTAL IRONWORKER [address] DEPT RADIATION ONCOLOGY, [place] [address] NURSE PRACTITIONER 01/06/18 Leonardo Ramirez MD [address] DEPT RADIATION ONCOLOGY, [place] [address] ORTHOPAEDIC SURGERY 01/06/18 Scar Snow MD [address] [place] [address] Referring Physician OPHTHALMOLOGY 01/06/18 Abida Velásquez MD [address] [place] [address] OBGYN 01/06/18 Rafael Roberts [address] [place] [address] [id number] DENTAL LABORER COOK HOUSE 01/06/18 Daniel Ceja MD [address] [place] [address] Consulting Physician GENERAL SURGERY 01/06/18 Cornelius So III, MD [address] [place] [address] PULMONARY DISEASE 01/06/18 Ja Toscano MD [address] [place] [address] Referring Physician OTOLARYNGOLOGY 12/06/19 Gustavo Toscano MD [address] [address] Consulting Physician CARDIOVASCULAR DISEASE 04/25/22 Jocelyn Culp MD [address]15 [place], [place] [address] ORTHOPAEDIC SURGERY 08/10/22 Sebastian Pratt MD [address] [address] ORTHOPAEDIC SURGERY 02/26/23 Dr. Rena Alexander Medical Oncologist ONCOLOGY 01/06/18 Dr. Taya Orourke, OPTOMETRY 01/06/18 Dr. Kyle Alejandro 01/06/18 Dr. Roe Malik CARDIOTHORACIC SURGERY 01/06/18 Dr. Dwight Javed ONCOLOGY 01/06/18 documented as of this encounter
--- OUTSIDE RECORDS SUMMARY | 2024-07-06 07:51 | XMS_ITS | Encounter Summary ---
Author Organization [facility] Address [facility] [place] [address] Care Team Providers Care Career Services Director Name Role Phone Sebastian Blankenship MD Primary Care Provider Elaina Gagnon PA-C Primary Care Provider Gila Ibarra MD Unavailable Kelsey Royal MD Unavailable [phone] [place] MD Unavailable [phone] Aravind Jones NP Unavailable Leonardo Ramirez MD Unavailable Scar Snow MD Unavailable Abida Velásquez MD Unavailable [phone] Rafael Roberts Unavailable Daniel Ceja MD Unavailable Saray PEARSON MD, Carlos C Unavailable [phone] Ja Toscano MD Unavailable Gustavo Toscano MD Unavailable Jocelyn Culp MD Unavailable Sebastian Pratt MD Unavailable [phone] Encounter Details Date Type Department Care Team (Latest Contact Info) Description 10/17/2017 Abstract [facility] Medical Group Avery Thurston MD [...] Description 07/09/2024 10:40 AM CDT Office Visit [facility] Medical Group Orthopedic & Sports Medicine - [place] [address] [place] [address] Daniel Koenig MD [address] [facility] [address] [place] [address] 08/19/2024 1:30 PM CDT Appointment [facility] [address]15 [place] [address] Gustavo Toscano MD Three [address] [address] 04/29/2025 10:00 AM CDT Office Visit [facility] [address] [place] [phone] Radha Mcgraw, ANP- Three [facility]. 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 encounter Care Teams Career Services Director Relationship Specialty Start Date End Date Sebastian Blankenship MD [address] [place] [address] PCP - General 03/23/14 01/05/18 Elaina Gagnon PA-C [address] [facility] 112 [place] [address] PCP - General PHYSICIAN PICKLING GRADER 01/06/18 Gila Ibarra MD [address] [place] [address] SURGERY 01/06/18 Kelsey Royal MD [address] DEPT RADIATION ONCOLOGY, [place] [address] RADIATION ONCOLOGY 01/06/18 [place] MD [address] DEPT RADIATION ONCOLOGY, [place] [address] SURGERY 01/06/18 12/05/19 Aravind Jones, MERCHANDISING DIRECTOR [address] DEPT RADIATION ONCOLOGY, [place] [address] NURSE PRACTITIONER 01/06/18 Leonardo Ramirez MD [address] DEPT RADIATION ONCOLOGY, [place] [address] ORTHOPAEDIC SURGERY 01/06/18 Scar Snow MD [address] [address] Referring Physician OPHTHALMOLOGY 01/06/18 Abida Velásquez MD [address] [facility] 5TH [place] [address] OBGYN 01/06/18 Rafael Roberts [address] [place] [address] DENTAL PASTRY COOK 01/06/18 Daniel Ceja MD [address] [place] [address] Consulting Physician GENERAL SURGERY 01/06/18 Cornelius So III, MD [address] [place] [address] PULMONARY DISEASE 01/06/18 Ja Toscano MD [address] [place] [address] Referring Physician OTOLARYNGOLOGY 12/06/19 Gustavo Toscano MD [address] [address] Consulting Physician CARDIOVASCULAR DISEASE 04/25/22 Jocelyn Culp MD [address] [place] [address] ORTHOPAEDIC SURGERY 08/10/22 Sebastian Pratt MD [facility] [address] [place] [address] ORTHOPAEDIC SURGERY 02/26/23 Dr. Rena Alexander Medical Oncologist ONCOLOGY 01/06/18 Dr. Taya Orourke, OD OPTOMETRY 01/06/18 Dr. Kyle Alejandro 01/06/18 Dr. Roe Malik CARDIOTHORACIC SURGERY 01/06/18 Dr. Dwight Javed ONCOLOGY 01/06/18 documented as of this encounter
--- OUTSIDE RECORDS SUMMARY | 2024-07-06 07:51 | XMS_ITS | Encounter Summary ---
Author Organization [facility] Address [facility] [place] [address] Care Team Providers Care Production Underwriter Name Role Phone Sebastian Blankenship MD Primary Care Provider Elaina Gagnon PA-C Primary Care Provider Gila Ibarra MD Unavailable Kelsey Royal MD Unavailable [phone] [place] MD Unavailable [phone] Aravind Jones NP Unavailable Leonardo Ramirez MD Unavailable Scar Snow MD Unavailable Abida Velásquez MD Unavailable [phone] Rafael Robetrs Unavailable Daniel Ceja MD Unavailable Saray PEARSON MD, Carlos C Unavailable Ja Toscano MD Unavailable Gustavo Toscano MD Unavailable Jocelyn Culp MD Unavailable Sebastian Pratt MD Unavailable [phone] Encounter Details Date Type Department Care Team (Late st Contact Info) Description 05/06/2015 Abstract [facility] Sebastian Blankenship MD [address] [address] [place] [address] Social History Tobacco Use Types Packs/Day Years [...] * Letter - Sebastian Blankenship MD - 05/06/2015 12:00 AM CDT May 06, 2015 Dorcas Becerra [address] [place] [address] Dear Dorcas Becerra, Thank you for choosing [facility] for your health care needs. We appreciate the opportunity to help you maintain your well being. You recently had health fair testing. Your results came back normal and at goals. Please remember to follow up as discussed at your last appointment. If you have any questions please feel free to call the office at [phone], Option #3 or Option #1 to make an appointment to discuss these results. Respectfully Yours, Electronically Signed by: Sebastian Blankenship MD Cc: Patient?s Medical Record SCAPE ARCHITECTURE TEACHER documented in this encounter Plan of Treatment Upcoming Encounters Date Type Department Care Team (Late st Contact Info) Description 07/09/2024 10:40 AM CDT Office Visit [facility] Medical Group Orthopedic & Sports Medicine - [place] [address] [place] [address] Daniel Koenig MD [address] [address] [place] [address] 08/19/2024 1:30 PM CDT Appointment [facility] [address] [place] [address] Gustavo Toscano MD [facility] [address] [place] [address] 04/29/2025 10:00 AM CDT Office Visit [facility] 9515 [place] [phone] Radha Mcgraw, ANP- Three [facility]. 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 encounter Care Teams Production Underwriter Relationship Specialty Start Date End Date Sebastian Blankenship MD [address] [place] [address] PCP - General 03/23/14 01/05/18 Elaina Gagnon PA-C [address] [facility] 112 [place] [address] PCP - General PHYSICIAN SAP BODS DEVELOPER 01/06/18 Gila Ibarra MD [facility] [address] SURGERY 01/06/18 Kelsey Royal MD [address] DEPT RADIATION ONCOLOGY, [place] [address] RADIATION ONCOLOGY 01/06/18 [place] MD [address] DEPT RADIATION ONCOLOGY, [place] [address] SURGERY 01/06/18 12/05/19 Aravind Jones, FIXING MACHINE OPERATOR [address] [facility] [address] DEPT RADIATION ONCOLOGY, [place] [address] NURSE PRACTITIONER 01/06/18 Leonardo Ramirez MD [address] [facility] [address] DEPT RADIATION ONCOLOGY, [place] [address] ORTHOPAEDIC SURGERY 01/06/18 Scar Snow MD [address] [place] [address] Referring Physician OPHTHALMOLOGY 01/06/18 Abida Velásquez MD [address] [place] [address] OBGYN 01/06/18 Rafael Roberts [address] [place] [address] [id number] DENTAL TEST DESK OPERATOR 01/06/18 Daniel Ceja MD [address] [place] [address] Consulting Physician GENERAL SURGERY 01/06/18 Cornelius So III, MD [address] [place] [address] PULMONARY DISEASE 01/06/18 Ja Toscano MD [address] [place] [address] Referring Physician OTOLARYNGOLOGY 12/06/19 Gustavo Toscano MD [address] [address] Consulting Physician CARDIOVASCULAR DISEASE 04/25/22 Jocelyn Culp MD [address]15 [place], [place] [address] ORTHOPAEDIC SURGERY 08/10/22 Sebastian Pratt MD [address] [address] ORTHOPAEDIC SURGERY 02/26/23 Dr. Rena Alexander Medical Oncologist ONCOLOGY 01/06/18 Dr. Taya Orourke, OPTOMETRY 01/06/18 Dr. Kyle Alejandro 01/06/18 Dr. Roe Malik CARDIOTHORACIC SURGERY 01/06/18 Dr. Dwight Javed ONCOLOGY 01/06/18 documented as of this encounter
--- OUTSIDE RECORDS SUMMARY | 2024-07-06 07:51 | XMS_ITS | Encounter Summary ---
Author Organization [facility] Address [facility]6 [place] [address] Care Team Providers Care Lapidary Apprentice Name Role Phone Sebastian Blankenship MD Primary Care Provider Elaina Gagnon PA-C Primary Care Provider Gila Ibarra MD Unavailable Kelsey Royal MD Unavailable [phone] [place] MD Unavailable [phone] Aravind Jones NP Unavailable [phone] Leonardo Ramirez MD Unavailable Scar Snow MD Unavailable [phone] Abida Velásquez MD Unavailable [phone] Rafael Roberts Unavailable Daniel Ceja MD Unavailable Saray PEARSON MD, Carlos C Unavailable Ja Toscano MD Unavailable Gustavo Toscano MD Unavailable Jocelyn Culp MD Unavailable Sebastian Pratt MD Unavailable [phone] Encounter Details Date Type Department Care Team (Late st Contact Info) Description 07/21/2015 Abstract [facility] [address] [place] [address] , Avery Merion MD Social History Tobacco Use Types Packs/Day [...] Description 07/09/2024 10:40 AM CDT Office Visit [facility] Medical Group Orthopedic & Sports Medicine - [place] [address] [place] [address] Daniel Koenig MD 670 [facility] [address] [place] [address] 08/19/2024 1:30 PM CDT Appointment [facility] [address] [place] [address] Gustavo Toscano MD [address] 6[address] 04/29/2025 10:00 AM CDT Office Visit [facility] 95[address] [place] [phone] Radha Mcgraw, ANP-BC Three [facility]. 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 documented as of this encounter Care Teams Lapidary Apprentice Relationship Specialty Start Date End Date Sebastian Blankenship MD [address] [place] [address] PCP - General 03/23/14 01/05/18 Elaina Gagnon PA-C 9401 [facility] 112 [place] [address] PCP - General PHYSICIAN BOTTLE INSPECTOR 01/06/18 Gila Ibarra MD [address] [place] [phone] SURGERY 01/06/18 Kelsey Royal MD [address] DEPT RADIATION ONCOLOGY, [place] [address] RADIATION ONCOLOGY 01/06/18 [place] MD [address] DEPT RADIATION ONCOLOGY, [place] [address] SURGERY 01/06/18 12/05/19 Aravind Jones SEISMIC INTERPRETER [address] DEPT RADIATION ONCOLOGY, [place] [address] NURSE PRACTITIONER 01/06/18 Leonardo Ramirez MD [address] DEPT RADIATION ONCOLOGY, [place] [address] ORTHOPAEDIC SURGERY 01/06/18 Scar Snow MD [address] [address] Referring Physician OPHTHALMOLOGY 01/06/18 Abida Velásquez MD [address] [address] OBGYN 01/06/18 Rafael Roberts [address] [place] [id number] DENTAL BENCH ASSEMBLER OPERATOR 01/06/18 Daniel Ceja MD [address] [place] [address] [id number] Consulting Physician GENERAL SURGERY 01/06/18 Cornelius So III, MD [address] [place] [address] PULMONARY DISEASE 01/06/18 Ja Toscano MD [address] [place] [address] Referring Physician OTOLARYNGOLOGY 12/06/19 Gustavo Toscano MD [address] 2499[address] Consulting Physician CARDIOVASCULAR DISEASE 04/25/22 Jocelyn Culp MD [address] [place] [address] ORTHOPAEDIC SURGERY 08/10/22 Sebastian Pratt MD [address] [facility] [address] [place] [address] ORTHOPAEDIC SURGERY 02/26/23 Dr. Rena Alexander Medical Oncologist ONCOLOGY 01/06/18 Dr. Taya Orourke, OD OPTOMETRY 01/06/18 Dr. Kyle Alejandro 01/06/18 Dr. Roe Malik CARDIOTHORACIC SURGERY 01/06/18 Dr. Dwight Javed ONCOLOGY 01/06/18 documented as of this encounter
--- OUTSIDE RECORDS SUMMARY | 2024-07-06 07:51 | XMS_ITS | Data Portability ---
Author Organization [facility], [facility] Address [address] [place] [address] Care Team Providers Care Mine Expert Name Role Phone JOYCE CORMIER Referring Provider Assessment No assessment recorded. Plan of Treatment Reminders Order Date Submit Date Provider Last Modified By Organization Details Last Modified Time Details Appointments None recorded. Lab None recorded. Referral None recorded. Procedures None recorded. Surgeries None recorded. Imaging None recorded. Medication Orders Bactrim DS 800 mg-160 mg tablet 021 021 [facility] #[id number], [address] [place], [address], 11:30:09 Patient TargetsNo targets recorded. Patient InstructionsNo instructions recorded. Reason for Referral None Reported. Results Created Date Observation Date Name Description Value Unit Range Abnormal Flag Note LastModifiedBy Organization Detail LastModifiedTime 01/03/20 21 01/02/2021 CBC WITH DIFF WBC 7.8 x10'3 /uL 4.5-11 .0 Not Available [facility] (Lab) [place], [address], 01/02/2021 12:28:51 01/03/20 21 01/02/2021 CBC WITH DIFF RBC 4.86 x10'6 /uL 4.20-5 .40 Not Available [facility] ([place]) [place], [address], 01/02/2021 12:28:51 01/03/20 21 01/02/2021 CBC WITH DIFF hemoglobin 13.1 g/dL 12.0-1 6.0 Not Available [facility] (Lab) [place], [address], 01/02/2021 12:28:51 01/03/20 21 01/02/2021 CBC WITH DIFF hematocrit 41.8 % 38.0-4 8.0 Not Available [facility] (Lab) [address] [facility], [place], [address], 01/02/2021 12:28:51 01/03/20 21 01/02/2021 CBC WITH DIFF MCV 86.0 fL 81.0-9 9.0 Not Available [facility] (Lab) [place], [address], 01/02/2021 12:28:51 01/03/20 21 01/02/2021 CBC WITH DIFF MCH 27.0 pg 27.0-3 1.0 Not Available [facility] (Lab) [place], [address], 01/02/2021 12:28:51 01/03/20 21 01/02/2021 CBC WITH DIFF MCHC 31.3 g/dL 32.0-3 6.0 low Not Available [facility] (Lab) [address] [facility], [place], [address], 01/02/2021 12:28:51 01/03/20 21 01/02/2021 CBC WITH DIFF RDW 16.0 % 11.5-1 4.5 high Not Available [facility] (Lab) [place], [address], 01/02/2021 12:28:51 01/03/20 21 01/02/2021 CBC WITH DIFF platelet count 281 x10'3 /uL 130-40 0 Not Available [facility] (Lab) [address], [place], [address], 01/02/2021 12:28:51 01/03/20 21 01/02/2021 CBC WITH DIFF MPV 10.3 fL 9.3-12 .2 Not Available [facility] (Lab) [address], [place], [address], 01/02/2021 12:28:51 01/03/20 21 01/02/2021 CBC WITH DIFF diff type AUTOMA EDWINA DIFFER ENTIAL Not Available [facility] (Lab) [address], [place], [address], 01/02/2021 12:28:51 01/03/20 21 01/02/2021 CBC WITH DIFF neutrophils 72.1 % Not Available [facility] (Lab) [address], [place], [address], 01/02/2021 12:28:51 01/03/20 21 01/02/2021 CBC WITH DIFF lymphocytes 17.4 % Not Available [facility] (Lab) [address], [place], [address], 01/02/2021 12:28:51 01/03/20 21 01/02/2021 CBC WITH DIFF monocytes 8.9 % Not Available [facility] (Lab) [address], [place], [address], 01/02/2021 12:28:51 01/03/20 21 01/02/2021 CBC WITH DIFF eosinophils 0.6 % Not Available [facility] (Lab) [address], [place], [address], 01/02/2021 12:28:51 01/03/20 21 01/02/2021 CBC WITH DIFF basophils 0.5 % Not Available [facility] (Lab) [place], [address], 01/02/2021 12:28:51 01/03/20 21 01/02/2021 CBC WITH DIFF immature granulocytes 0.5 % Not Available [facility] (Lab) [address] [facility], [place], [address], 01/02/2021 12:28:51 01/03/20 21 01/02/2021 CBC WITH DIFF abs. neutrophils 5.64 x10'3 /uL 1.80-7 .70 Not Available [facility] (Lab) [place], [address], 01/02/2021 12:28:51 01/03/20 21 01/02/2021 CBC WITH DIFF abs. lymphocytes 1.36 x10'3 /uL 1.00-4 .80 Not Available [facility] (Lab) [place], [address], 01/02/2021 12:28:51 01/03/20 21 01/02/2021 CBC WITH DIFF abs. monocytes 0.70 x10'3 /uL 0.24-0 .86 Not Available [facility] (Lab) [address] [facility], [place], [address], 01/02/2021 12:28:51 01/03/20 21 01/02/2021 CBC WITH DIFF abs. eosinophils 0.05 x10'3 /uL 0.04-0 .36 Not Available [facility] (Lab) [place], [address], 01/02/2021 12:28:51 01/03/20 21 01/02/2021 CBC WITH DIFF abs. basophils 0.04 x10'3 /uL 0.01-0 .08 Not Available [facility] (Lab) [place], [address], 01/02/2021 12:28:51 01/03/20 21 01/02/2021 CBC WITH DIFF abs. immature grans 0.04 x10'3 /uL 0.00-0 .49 Not Available [facility] (Lab) [address] [facility], [place], [address], 01/02/2021 12:28:51 01/03/2001/02/2021 TYPE AND SCREE N ABO/Rh(D) O POSITI VE Not Available [facility] (Lab) [place], [address], 01/05/2021 08:52:05 01/03/2001/02/2021 TYPE AND SCREE N antibody screen NEGATI VE Not Available [facility] (Lab) [address] [facility], [place], [address], 01/05/2021 08:52:05 01/03/2001/05/2021 TYPE AND SCREE N xm expiration 2020,2 359 Not Available [facility] (Lab) [address] [facility], [place], [address], 01/05/2021 08:52:05 01/03/2001/05/2021 TYPE AND SCREE N comment NO HISTOR Y OF TRANSF USIONS ,PREGN MIC OR ANTIBO DIES, NEW SPECIM EN NOT NEEDED Not Available [facility] (Lab) [address] [facility], [place], [address], 01/05/2021 08:52:05 Result Notes None recorded. Problems Name Problem SNOMED Code Status Onset Date Resolution Date Notes Provider Name and Address Organization Details Recorded Time Procedure Active 2020 Encounter for other preprocedu ral examinatio n; Progress: Stable Added By: Gila Iverson Add to Current Problems: YES ProblemSta tus: Current Not Available [facility] 19:23:53 Incomplet e uterovagi nal prolapse 476011056 Active 2020 Incomplete uterovagin al prolapse; Progress: Stable Added By: Nat Garcia Add to Current Problems: YES ProblemSta tus: Current Not Available [facility] 19:24:13 Problem Notes None recorded. Procedures Surgical History Date Name Laterality Status Provider Name and Address Organization Details Recorded Time 01/06/20 21 laparoscopic supracervical hysterectomy completed Nat Garcia MD [address] [place] [address], [phone], [facility] [employer] [facility] 01/16/2021 16:33:22 appendectomy completed Nat Garcia MD [address] [place] [address], [phone], [facility] [employer] [facility] 01/16/2021 16:36:17 extraction of cataract completed Nat Garcia MD [address] [place] [address], [phone], [facility] [employer] [facility] 01/16/2021 16:36:29 lumpectomy of breast completed Nat Garcia MD [address] [place] [address], [phone], [facility] [employer] [facility] [employer] 01/16/2021 16:36:51 total nephrectomy completed Nat Garcia MD [address] [place] [address], [phone], [facility] [employer] 01/16/2021 16:39:46 partial lobectomy of lung completed Nat Garcia MD [address] [place] [address], [phone], [facility] [facility] 01/16/2021 16:40:22 Imaging Results None recorded. Procedure Notes None recorded. Medical Equipment None Reported. Allergies Allergen ID Allergen Name Allergen Category Reaction Reaction Severity Criticality Documentation Date Start Date Code Code System Note Provider Name and Address Organization Details Recorded Time 719056 adhesive tape environme nt,medica tion Not available Not available Not available 05/03/20212020 59663 UNK Sever ity: Moder ate; Not Available [facility] 2 11:48:53 370603 chlorhexi dine medicatio n Not available Not available Not available 05/03/20212020 2358 RxNorm Sever ity: Moder ate; Not Available [facility] 2 11:48:53 Medications Name Sig Start Date Stop Date Status Note LastModified by Organization Details LastModified Time multivitam in tablet active multivita min oral tablet Refill Denied: No Refill DateOccur red: Edited by: Gila Nolasco ) on Stopped by: Gila Nolasco ) on Not Available Not Available Not Available anastrozol e 1 mg tablet Take 1 tablet every day by oral route. active Not Available Not Available No t Available lisinopril 20 mg tablet Take 1 tablet every day by oral route. active Not Available Not Available No t Available amlodipine 5 mg tablet take 1 tablet (5 mg) by oral route once daily active amLODIPin e 5 mg oral tablet RxNorm: 706687 Refill Denied: No Refill DateOccur red: Edited by: Gila Nolasco ) on Stopped by: Gila Nolasco ) on Not Available Not Available Not Available Vitamin C 1,000 mg tablet active Vitamin C 1,000 mg oral tablet RxNorm: 434339 Refill Denied: No Refill DateOccur red: 1 Edited by: Gila Nolasco ) on 1 Stopped by: Gila Nolasco ) on Not Available Not Available Not Available amlodipine 10 mg tablet Take 1 tablet every day by oral route. active Not Available Not Available No t Available Calcium-60 0 600 mg (as calcium carbonate 1,500 mg) tablet active Calcium 600 600 mg calcium (1,500 mg) oral tablet RxNorm: 665608 Refill Denied: No Refill DateOccur red: Edited by: Gila Nolasco ) on 1 Stopped by: Gila Nolasco ) on Not Available Not Available Not Available omeprazole 20 mg capsule,de layed release Take 1 capsule every day by oral route. active Not Available Not Available No t Available zoledronic acid 4 mg intravenou s solution infuse 4 mg over 15 minute(s) by intraveno us route every 3 weeks active zoledroni c acid 4 mg Intraveno us Solution, Reconstit uted RxNorm: 2489987 Refill Denied: No Refill DateOccur red: Edited by: Gila Nolasco ) on 1 Stopped by: Gila Nolasco ) on Not Available Not Available Not Available oxybutynin chloride 5 mg tablet Take 1 tablet twice a day by oral route. active Not Available Not Available No t Available Bactrim DS 800 mg-160 mg tablet Take 1 tablet every 12 hours by oral route for 7 days. 2020 active Not Available Not Available Not Avai lable rosuvastat in 20 mg tablet Take 1 tablet every day by oral route. active Not Available Not Available No t Available Zometa active Not Available Not Availa ble Not Available acetaminop hen 650 mg/20.3 mL oral solution take 20.3 millilite rs (650 mg) by oral route every 4 hours as needed active acetamino phen 650 mg/20.3 mL oral Solution RxNorm: 339276 Refill Denied: No Refill DateOccur red: 1 Edited by: Gila Nolasco ) on 1 Stopped by: Gila Nolasco ) on Not Available Not Available Not Available B12 active B12 Refill Denied: No Refill DateOccur red: Edited by: Gila Nolasco ) on 1 Stopped by: Gila Nolasco ) on Not Available Not Available Not Available Ovega-3 500 mg-270 mg-135 mg capsule active Ovega-3 500-270-1 35 mg oral capsule Refill Denied: No Refill DateOccur red: 1 Edited by: [email or web address]( Gila Iverson ) on 1 Stopped by: nory( Gila Iverson ) on Not Available Not Available Not Available Vitals Date Recorded Body height Body mass index (BMI) Body weight Body temperature Systolic blood pressure Diastolic blood pressure Provider Name and Address Organization Details Last Updated DateTime 1 162.56 cm 28 kg/m2 70731.2 7 g 97.2 [degF] 124 mm[Hg] 72 mm[Hg] Gila Iverson [facility] 1 11:08:08 Social History Question Answer Notes LastModified by Organizat ion Details LastModified Time Tobacco Smoking Status Former Smoker Nat Garcia MD [address] [place], [address], [facility] 01/16/2021 16:38:33 How Many Children Do You Have? 2 [email or web address] Information not available 01/17/2021 What Is Your Relationship Status? [email or web address] Information not available 01/16/2021 Are You Sexually Active? No Information not available 01/17/2021 Sex: Unknown Functional Status Question Answer Note LastModified by Organizat ion Details LastModified Time How many times per week do you consume alcohol? 1-2 times per week [email or web address] Information not available 01/17/2021 Do you use any illicit or recreational drugs? No [email or web address] Information not available 01/17/2021 What is your level of alcohol consumption? Occasional [email or web address] Information not available 01/17/2021 Mental Status None recorded. Family History Nothing Reported. Medical History Condition Response High Blood Pressure Y IBS (Irritable Bowel Syndrome) Y Arthritis Y Breast Cancer Y High Cholesterol Y GERD (reflux) Y Kidney Disease Y Gynecological History Statement/Question Response Current Control Method Menopause Obstetrics History GPAL:G 2 P 2 0 0 2 Type Value Full Term 2 Living 2 Total 2 Past Encounters Encounter ID Performer Location Encounter Start Date Encounter Closed Date Diagnosis/Indication Diagnosis SNOMED-CT Code Diagnosis ICD10 Code Diagnosis Note [id number] Nat Garcia MD [facility] [address] [place] [address] 01/17/2021 10:49:18 01/19/2021 11:40:40 Postoperative visit [id number] Z09 possible hematoma. Prophylact ic bactrim started. Will discuss with Dr. Cormier re: follow up. Health Concerns Section Related Observation LastModified by Organization Detai ls LastModified Time None Recorded Concern Status LastModified by Organization Details LastModified Time None Recorded Advance Directives Directive None Recorded Payers Insurance Date Sequence Insurance Name Policy Number Policy Valdez Covered Member ID Valdez Member ID Guarantor Name 11/02/2021 1 [place] Dorcas Becerra [id number] Dorcas Becerra 01/06/2021 1 [place] Dorcas Becerra [id number] Dorcas Becerra 11/02/2021 2 [place] ([place]) [id number] Dorcas Becerra [id number] Dorcas Becerra Notes Date Note Type Note Provider Name and Address Organization Details Recorded Time 01/17/2021 text/html Post-OpReported bypatient.Onset/ Timing:date of surgery: (01/05/2021); [facility] Quality:procedur e: ([employer] LASHELL/BSO Robotic sacrocolpopexy/ cysto) Associated Symptoms:incisio n healing well; normal appetite; normal bowel function; no constipation; no nausea; no emesis; pain improving; no fever; no bleeding; no lower extremity edema/pain; no dysuria/urinary symptoms;fatigue Nat Garcia MD [address] [facility], [place], [address], [facility] [employer] [facility] 01/17/2021 11:33:13 OBGyn Episode No OBEpisode recorded.
--- OUTSIDE RECORDS SUMMARY | 2024-07-06 07:51 | XMS_ITS | Encounter Summary ---
Author Organization [facility] Address [facility] [place] [address] Care Team Providers Care Watch And Clock Maker And Repairer Name Role Phone Sebastian Blankenship MD Primary Care Provider Elaina Gagnon PA-C Primary Care Provider Gila Ibarra MD Unavailable Kelsey Royal MD Unavailable [phone] [place] MD Unavailable [phone] Aravind Jones NP Unavailable Leonardo Ramirez MD Unavailable [phone] Scar Snow MD Unavailable [phone] Abida Velásquez MD Unavailable [phone] Rafael Roberts Unavailable Daniel Ceja MD Unavailable Saray PEARSON MD, Carlos C Unavailable Ja Toscano MD Unavailable Gustavo Toscano MD Unavailable Jocelyn Culp MD Unavailable Sebastian Pratt MD Unavailable [phone] Encounter Details Date Type Department Care Team (Late st Contact Info) Description 06/13/2016 Abstract [facility] Sebastian Blankenship MD [id number] [place] [address] Social History Tobacco Use Types Packs/Day Years [...] * Letter - Sebastian Blankenship MD - 06/13/2016 12:00 AM CDT Jun 13, 2016 Dorcas Becerra [address] [place] [address] Dear Dorcas Becerra, Thank you for choosing [facility] for your health care needs. We appreciate the opportunity to help you maintain your well being. You recently attended the health fair. Your results came back normal or within goal range . Please remember to follow up as discussed at your last appointment. If you have any questions please feel free to call the office at [phone],Option #3 or Option #1 to make an appointment to discuss these results. Respectfully Yours, Electronically Signed by: Sebastian Blankenship MD Cc: Patients Medical Record ORT OPERATIONS OFFICER documented in this encounter Plan of Treatment Upcoming Encounters Date Type Department Care Team (Late st Contact Info) Description 07/09/2024 10:40 AM CDT Office Visit [facility] [place] [address] [place] [address] Daniel Koenig MD [address] [address] [place] [address] 08/19/2024 1:30 PM CDT Appointment [facility] Ultrasound [address] [place] [address] Gustavo Toscano MD [facility]. [facility] [address] [place] [address] 04/29/2025 10:00 AM CDT Office Visit [facility] [address] [place] [phone] Radha Mcgraw, ANP- [facility]. 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 documented as of this encounter Care Teams Watch And Clock Maker And Repairer Relationship Specialty Start Date End Date Sebastian Blankenship MD [id number] [place] [address] PCP - General 03/23/14 01/05/18 Elaina Gagnon PA-C [address] [facility] [address] [place] [address] PCP - General PHYSICIAN HOME HEALTH REGISTERED NURSE 01/06/18 Gila Ibarra MD [facility] [place] [address] SURGERY 01/06/18 Kelsey Royal MD [address] DEPT RADIATION ONCOLOGY, [place] [address] RADIATION ONCOLOGY 01/06/18 [place] MD [address] DEPT RADIATION ONCOLOGY, [place] [address] SURGERY 01/06/18 12/05/19 Aravind Jones, CONTRACT COORDINATOR [address] DEPT RADIATION ONCOLOGY, [place] [address] NURSE PRACTITIONER 01/06/18 Leonardo Ramirez MD [address] DEPT RADIATION ONCOLOGY, [place] [address] ORTHOPAEDIC SURGERY 01/06/18 Scar Snow MD [address] [place] [address] Referring Physician OPHTHALMOLOGY 01/06/18 Abida Velásquez MD [address] [place] [address] OBGYN 01/06/18 Rafael Roberts [address] [place] [id number] DENTAL TOOLING MANAGER 01/06/18 Daniel Ceja MD [address] [place] [address] Consulting Physician GENERAL SURGERY 01/06/18 Cornelius So III, MD [address] [place] [address] PULMONARY DISEASE 01/06/18 Ja Toscano MD [address] [place] [address] Referring Physician OTOLARYNGOLOGY 12/06/19 Gustavo Toscano MD [address] [address] Consulting Physician CARDIOVASCULAR DISEASE 04/25/22 Jocelyn Culp MD [address] [place], [place] [address] ORTHOPAEDIC SURGERY 08/10/22 Sebastian Pratt MD [address] [address] ORTHOPAEDIC SURGERY 02/26/23 Dr. Rena Alexander Medical Oncologist ONCOLOGY 01/06/18 Dr. Taya Orourke, OPTOMETRY 01/06/18 Dr. Kyle Alejandro 01/06/18 Dr. Roe Malik CARDIOTHORACIC SURGERY 01/06/18 Dr. Dwight Javed ONCOLOGY 01/06/18 documented as of this encounter
--- OUTSIDE RECORDS SUMMARY | 2024-07-06 07:52 | XMS_ITS | Encounter Summary ---
Author Organization [facility] Address [facility] [place] [address] Care Team Providers Care Cattle Killer Name Role Phone Sebastian Blankenship MD Primary Care Provider [phone] Elaina Gagnon PA-C Primary Care Provider Gila Ibarra MD Unavailable Kelsey Royal MD Unavailable [phone] [place] MD Unavailable [phone] Aravind Jones NP Unavailable Leonardo Ramirez MD Unavailable Scar Snow MD Unavailable Abida Velásquez MD Unavailable [phone] Rafael Roberts Unavailable Daniel Ceja MD Unavailable Saray PEARSON MD, Carlos C Unavailable Ja Toscano MD Unavailable Gustavo Toscano MD Unavailable Jocelyn Culp MD Unavailable Sebastian Pratt MD Unavailable [phone] Encounter Details Date Type Department Care Team (Late st Contact Info) Description 12/04/2002 Abstract [facility] Conversion , Generic MD Angelique Social [...] Description 07/09/2024 10:40 AM CDT Office Visit [facility] - [place] [address] [place] [address] Daniel Koenig MD [address] [address] [place] [address] 08/19/2024 1:30 PM CDT Appointment [facility] Ultrasound [address] [place] [address] Gustavo Toscano MD Three [facility]. [facility] [address] [place], [place] [address] 04/29/2025 10:00 AM CDT Office Visit [facility] [address] [place] [phone] Radha Mcgraw, ANP- Three [facility]. [facility] [address] [place], [place] [address] documented as of this encounter Visit Diagnoses Not on filedocumented in this encounter Additional Health Concerns Infection Onset Date Last Indicated Resolved Time COVID-19 Rule Out 03/28/2020 03/28/2020 03/29/2020 8:46 PM [employer] documented as of this encounter Care Teams Cattle Killer Relationship Specialty Start Date End Date Sebastian Blankenship MD [id number] [place] [address] PCP - General 03/23/14 01/05/18 Elaina Gagnon PA-C [address] [facility] [address] [place] [address] PCP - General PHYSICIAN LEISURE STUDIES PROFESSOR 01/06/18 Gila Ibarra MD [address] [place] [address] SURGERY 01/06/18 Kelsey Royal MD [address] DEPT RADIATION ONCOLOGY, [place] [address] RADIATION ONCOLOGY 01/06/18 [place] MD [address] DEPT RADIATION ONCOLOGY, [place] [address] SURGERY 01/06/18 12/05/19 Aravind Jones, FAMILY REUNIFICATION SPECIALIST [address] DEPT RADIATION ONCOLOGY, [place] [address] NURSE PRACTITIONER 01/06/18 Leonardo Ramirez MD [address] DEPT RADIATION ONCOLOGY, [place] [address] ORTHOPAEDIC SURGERY 01/06/18 Scar Snow MD [address] [address] Referring Physician OPHTHALMOLOGY 01/06/18 Abida Velásquez MD [address] [facility] 5[place] [address] OBGYN 01/06/18 Rafael Roberts [address] [place] [address] DENTAL REGISTRATION REPRESENTATIVE 01/06/18 Daniel Ceja MD [address] [place] [address] Consulting Physician GENERAL SURGERY 01/06/18 Cornelius So III, MD [address] [place] [address] PULMONARY DISEASE 01/06/18 Ja Toscano MD [address] [place] [address] Referring Physician OTOLARYNGOLOGY 12/06/19 Gustavo Toscano MD [address] [address] Consulting Physician CARDIOVASCULAR DISEASE 04/25/22 Jocelyn Culp MD [address] [place] [address] ORTHOPAEDIC SURGERY 08/10/22 Sebastian Pratt MD [address] [facility] [address] [place] [address] [place] [address] ORTHOPAEDIC SURGERY 02/26/23 Dr. Rena Alexander Medical Oncologist ONCOLOGY 01/06/18 Dr. Taya Orourke, OD OPTOMETRY 01/06/18 Dr. Kyle Alejandro 01/06/18 Dr. Roe Malik CARDIOTHORACIC SURGERY 01/06/18 Dr. Dwight Javed ONCOLOGY 01/06/18 documented as of this encounter
--- OUTSIDE RECORDS SUMMARY | 2024-07-06 07:52 | XMS_ITS | Clinical Summary ---
Author Organization [facility] Address Formerly [facility], [facility] [place] [address] Care Team Providers Care Golf Caddie Name Role Phone Elaina Gagnon PA-C Primary Care Provider [phone] Gila Ibarra MD Unavailable [phone] Kelsey Royal MD Unavailable [phone] Aravind Jonse NP Unavailable Leonardo Ramirez MD Unavailable Scar Snow MD Unavailable [phone] Abida Velásquez MD Unavailable [phone] Rafael Roberts Unavailable Daniel Ceja MD Unavailable Saray PEARSON MD, Carlos C Unavailable Ja Toscano MD Unavailable Gustavo Toscano MD Unavailable Jocelyn Culp MD Unavailable Sebastian Pratt MD Unavailable Allergies Active Allergy Reactions Criticality Noted Date Comments Chlorhexidine Hives,Itching Medium 11/15/2017 Tape Rash Medium 03/23/2014 White, medical tape causes rash Medications vitamin C 1000 MG tablet Take by mouth daily. 010 Active calcium carbonate 1500 (600 Ca) MG tablet Take 1 tablet (1,500 mg total) by mouth 2 (two) times a day. Active Nutritional Supplements (CELLULAR FORTE OR) Take 1 tablet by mouth 2 (two) times a day. IP-6 and Inositol 800 and 220 mg 1 cap BID Active Cyanocobalamin 100 MCG Tab Take 100 mcg by mouth daily. Vitamin b-12 1000 mcg Active Multiple Vitamin (MULTIVITAMIN ADULT OR) Take 1 tablet by mouth daily. Active Docusate Sodium (DSS) 100 MG Cap Take 1 tablet by mouth daily as needed. 022 Active Lactobacillus-Inu jody (CULTURELLE DIGESTIVE DAILY OR) Take 1 tablet by mouth daily. Active Apoaequorin (PREVAGEN) 10 MG Cap Take 10 mg by mouth every evening. Active Cholecalciferol (VITAMIN D3) 25 MCG (1000 UT) Cap Take 8 capsules (200 mcg total) by mouth daily. 60 capsule 023 Active Bacillus Coagulans-Inulin (PROBIOTIC) 1-250 BILLION-MG Cap Take 1 capsule by mouth daily. Active Fish Oil-Cholecalcifer ol (OMEGA-3 + VITAMIN D3) 1110-300 MG-UNIT Cap Take 1 capsule by mouth daily. Active fluticasone propionate (FLONASE) 50 MCG/ACT nasal spray 1 spray by Nasal route. Active venlafaxine XR (EFFEXOR-XR) 75 MG 24 hr capsule Take 1 capsule (75 mg total) by mouth daily. 024 Active amLODIPine (NORVASC) 5 MG tabletIndications :Essential hypertension TAKE 1 TABLET (5 MG TOTAL) BY MOUTH DAILY. 90 tablet 1 025 Active lisinopril (PRINIVIL) 20 MG tabletIndications :Essential hypertension TAKE 1 TABLET BY MOUTH EVERY DAY 90 tablet 1 025 Active HYDROcodone-aceta minophen (NORCO) 5-325 MG tabletIndications :Acute Pain < 7 Day Supply Take 1 tablet by mouth every 4 (four) hours as needed. Indications: Acute Pain < 7 Day Supply 20 tablet 025 Active Additional Information Patient not taking.Reported on 05/26/2024 Gauze Pads & Dressings ([employer] [place] DRESSING) 4 X10 PadsIndications:S /P reverse total shoulder arthroplasty, left 1 Units by Does not apply route daily. 14 each 1 025 Active ondansetron (ZOFRAN-ODT) 4 MG disintegrating tablet Take 1 tablet (4 mg total) by mouth every 8 (eight) hours as needed. 10 tablet 025 Active Additional Information Patient not taking.Reported on 05/26/2024 oxybutynin XL (DITROPAN-XL) 10 MG 24 hr tabletIndications :Urge and stress incontinence TAKE 1 TABLET BY MOUTH EVERY DAY 90 tablet 025 Active rosuvastatin (CRESTOR) 20 MG tabletIndications :Mixed hyperlipidemia TAKE 1 TABLET BY MOUTH EVERY DAY 90 tablet 025 Active omeprazole (PRILOSEC) 40 MG capsuleIndication s:Belching TAKE 1 CAPSULE (40 MG TOTAL) BY MOUTH DAILY. 90 capsule 025 Active rosuvastatin (CRESTOR) 20 MG tabletIndications :Mixed hyperlipidemia Take 1 tablet (20 mg total) by mouth daily. 90 tablet 3 024 2024 Discontinued omeprazole (PRILOSEC) 40 MG capsuleIndication s:Belching TAKE 1 CAPSULE (40 MG TOTAL) BY MOUTH DAILY. 90 capsule 3 024 2024 Discontinued aspirin EC (ECOTRIN) 81 MG tabletIndications :S/P reverse total shoulder arthroplasty, left Take 1 tablet (81 mg total) by mouth 2 (two) times daily with meals for 30 days. 60 tablet 025 2024 Active Problems Problem Noted Date Diagnosed Date Diverticulitis 05/22/2024 S/P reverse total shoulder arthroplasty, left History of colitis 04/26/2023 Primary osteoarthritis of right knee 04/22/2023 Colitis 02/10/2023 S/P arthroscopy of left shoulder 06/21/2022 S/P arthroscopy of left shoulder 06/21/2022 S/P arthroscopy of left shoulder 05/03/2022 Nontraumatic incomplete tear of left rotator cuf f 04/10/2022 Impingement syndrome of left shoulder 04/10/2022 Osteoarthritis of left acromioclavicular joint 0 04/10/2022 Rotator cuff arthropathy of left shoulder 2022 Assessment & Plan (03/19/2022 3:44 PM BLOOD COLLECTOR): We discussed treatment options and a reverse rotator cuff today in detail. We will also give Tramadol 50 mg every [address] a referral for this surgery. Advised that a shoulder brace will not help, as well as since her last steroid injection was on 02/02/2022 that she is unable to have any surgery for 3 months after the injection. 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, estrogen receptor positive ([facility]) 10/09/2017 Overview (02/10/2023): Lumpectomy and re-excision, plans radiation and hormonal treatments Renal cell carcinoma ([facility] HHS/HCC) 5 Overview (12/30/2017): s/p nephrectomy at [facility] to lung s/p resection Assessment & Plan (03/21/2022 5:52 AM BLOOD COLLECTOR): There fore cannot use NSAIDs GERD (gastroesophageal reflux disease) 3 Hyperlipidemia 03/12/2012 Irritable bowel syndrome (IBS) 03/12/2012 Osteopenia 03/12/2012 Other specified arthritis, multiple sites 2012 Urge and stress incontinence 03/12/2012 Impaired fasting glucose Resolved Problems Problem Noted Date Diagnosed Date Resolved Date half-way current use of aromatase inhibitor 9 01/05/2019 Personal history of irradiation 04/20/2018 01/05/2019 Epidermoid cyst 09/13/2017 12/30/2017 Splenic abscess 12/26/2015 01/05/2019 Seborrheic dermatitis 2021 Encounters Date Type Department Care Team Description 06/15/2024 Scan HEALTH INFO SRVCS Scanned, Doc Med Group 05/26/2024 11:00 AM CDT Office Visit [facility] Orthopedic & Sports Medicine [facility] [address] [place] [address] Daniel Koenig MD Postop Followup (Left reverse total shoulder 05/11/24) 05/26/2024 Scan HEALTH INFO SRVCS Scanned, Doc Med Group 05/26/2024 Travel 05/25/2024 Orders Only [facility] Orthopedic & Sports [facility] [address] [place] [address] Daniel Koenig MD 05/21/2024 6:52 AM CDT - 05/21/2024 9:09 AM CDT Emergency [facility] Emergency Room [address] [place] [id number] Kasie Dahl MD Abdominal Pain Discharge Disposition: Home or Self Care (Routine Discharge) 05/21/2024 Travel 05/11/2024 10:09 AM CDT Anesthesia [place] [address] David Robertson MD Jackson, Samantha Rae, FNP 05/11/2024 10:01 AM CDT - 05/11/2024 12:47 PM CDT [place] [address] Daniel Koenig MD LEFT REVERSE TOTAL SHOULDER REPLACEMENT 05/11/2024 7:31 AM CDT - 05/12/2024 11:18 AM CDT Hospital Encounter [facility] 3rd [facility] [place] [address] Daniel Koenig MD Discharge Disposition: Home or Self Care (Routine Discharge) 05/11/2024 Travel 04/30/2024 11:30 AM CDT Office Visit [facility] [address] [place] [phone] Gustavo Toscano MD Surgical Clearance; Lipids 04/30/2024 10:20 AM CDT Office Visit [facility] [address] [place] [phone] Elaina Gagnon PA-C Pre-Op Exam (Left shoulder surgery/05/11/24) 04/30/2024 Telephone [facility], [address] [address] Gustavo Toscano MD Surgical Clearance 04/30/2024 Travel 04/28/2024 11:00 AM CDT Office Visit [facility] Medical Group Orthopedic & Sports Medicine - [place] [address] [place] [address] Sebastian Cortes PA-C Pre-Op Exam (LT Rev TSR on 05/11) 04/28/2024 9:25 AM CDT - 04/28/2024 4:23 PM CDT Hospital Encounter [facility] Pre-Admission Testing [facility] [place] [address] Daniel Koenig MD Discharge Disposition: Home or Self Care (Routine Discharge) 04/28/2024 Scan [facility] HEALTH INFO SRVCS Scanned, Doc Med Group 04/28/2024 Travel 04/20/2024 Scan [facility] HEALTH INFO SRVCS Scanned, Doc Med Group from Last 3 Months Immunizations Immunization Administration Dates Next Due Arexvy Respiratory Syncytial Virus (RSV, adjuvanted) 0.5 mL, PF 02/20/2023 FLUAD (IIV, Trivalent, 0.5 M L Pre-filled Syringe) 12/25/2023 Fluzone High Dose - >Age 65 (Prefilled Syringe) 01/28/2023,01/29/2022,12/22/2019,2018,12/18/2017,01/02/2016,01/20/2015 Influenza Adult (Generic) 12/14/2020,02/2017,11/23/2016,2015,11/13/2013,03/04/2013,01/16/2012,1 MODERNA COVID-19 (12+) MRNA, LNP-S, PF, 100 MCG/ 0.5 ML DOSE 06/03/2020,05/06/2020 MODERNA COVID-19 ([employer]NA[employer] JADA ALEJANDRA), MRNA, LNP-S, PF, 50 MCG/ 0.25 ML DOSE 02/23/2021 Pneumococcal (Pneumovax 23) 04/17/2017 Pneumococcal (Prevnar 13) 02/08/2016,01/20/2015 Pneumococcal (Prevnar 20) 01/28/2022 Shingrix 12/30/2018,09/08/2018 Tdap (Generic) 02/13/2022,01/16/2012 Zoster (Zostavax) 76[address] Unt/0.65Ml 01/01/2017 Family History Medical History Relation Comments Asthma Brother COPD Brother Diabetes Brother Diabetes Father Heart Attack Father Heart Disease Father alzheimers Maternal Aunt alzheimers Maternal Uncle Arthritis Mother Miscarriages / Stillbirths Mother Stroke Mother alzheimers Mother Relation Status Comments Brother Alive Daughter Alive Father (Age 65) Maternal Aunt Maternal Uncle Mother (Age 83) Sister Alive Son Alive Social History Tobacco Use Types Packs/Day Years Used Date Smoking Tobacco: Former Cigarettes 1 19 0 02/18/1967 - 02/18/1986 Passive Smoke Exposure: Past Smokeless Tobacco: Never Tobacco Cessation:Counseling Given: No Comments:Former, Quit 1986 Alcohol Use Standard Drinks/Week Comments Yes 6.7 (1 standard drin k = 0.6 oz pure alcohol) drinks occasional shot or two of whiskey or liquor couple or 3 days a week [facility] Utilities Answer Date Recorded In the past 12 months has [employer], [employer], or water [employer] threatened to shut off services in your [...] Date Recorded Patient Health Questionnaire-2 Score 0 02/27/2024 Hunger Vital Sign Answer Date Recorded Within [...] place to sleep or slept in a half-way (including now)? Patient declined 02/10/2023 Comments No Sex and Gender Information Value Date Recorded Sex Assigned at Female 04/30/2019 8:35 AM CDT Legal Sex Female 10:57 PM CDT Gender Identity Female 04/30/2019 8:35 AM CDT Sexual Orientation Straight 04/30/2019 8: 35 AM CDT Last Filed Vital Signs Vital Sign Reading Time Taken Comments Blood Pressure 108/71 05/26/2024 10:53 AM CDT Pulse 67 05/26/2024 10:53 AM CDT Temperature 36.5 C (97.7 F) 05/26/2024 10:53 AM CDT Respiratory Rate 27 05/21/2024 9:00 AM CDT Oxygen Saturation 97% 05/21/2024 9:00 AM CDT Inhaled Oxygen Concentration - - Weight 71.1 kg (156 lb 12.8 oz) 025 10:53 AM CDT Height 162.6 cm (5' 4 ) 05/26/2024 10:5 3 AM CDT Body Mass Index 26.91 05/26/2024 10:53 AM CDT Plan of Treatment Upcoming Encounters Date Type Department Care Team (Late st Contact Info) Description 07/09/2024 10:40 AM CDT Office Visit [facility] Orthopedic & Sports Medicine - [place] [address] [place] [address] Daniel Koenig MD [address] [address] [place] [address] 08/19/2024 1:30 PM CDT Appointment [facility] [address] [place] [address] Gustavo Toscano MD [facility] [address] [place], [place] [address] 04/29/2025 10:00 AM CDT Office Visit [facility] [address] [place] [address] Radha Mcgraw, [employer] [facility]. [facility] [address] [place] [address] Health Maintenance Due Date Last Done Comments Annual Medicare Wellness Visit 2015 COVID-19 Vaccine ( season) 2023 02/23/2021, 06/03/2020, 05/06/2020 Mammogram Screening 01/01/2026 01/02/2024, 01/02/2024, 10/31/2022, Additional history exists DTaP, Tdap and Td Vaccines (3 - Td or Tdap) 02/14/2032 02/13/2022, 01/16/2012 Colorectal Cancer Screening Colonoscopy (10 Years) 04/30/2033 05/01/2023, 05/01/2023, 03/31/2020, Additional history exists Zoster Vaccines Completed 12/30/2018, 08/19, 01/01/2017 Hepatitis C Completed 04/11/2020 Dexa Scan (General) Completed 01/22/2022, 09/04/2019, 02/20/2018, Additional history exists Pneumococcal Vaccine: 50+ Years Completed 01/28/2022, 04/17/2017, 02/08/2016, Additional history exists RSV Immunization or 60+ Years Completed 02/20/2023 PHQ-2 (Physician [place]) Completed 02/27/2024 Meningococcal B Vaccine Aged Out No l onger eligible based on patient's age to complete this topic Meningococcal Vaccine Aged Out No steven sharita eligible based on patient's age to complete this topic RSV Immunizations Under 20 Months Aged Out No longer eligible based on patient's age to complete this topic Medical Devices Implanted Type Area Hot Dog Vender Device Identifier Shelf Expiration Date Model / Serial / Lot Floris Fibertak Fiberwire - [id number] Implanted:Qty: 1 on 05/04/2022 by Daniel Koenig MD at [facility] Floris Left: Shoulder [employer] [id number] 12/18/2026 AR-3632 / / [id number] Floris Fibertak Fiberwire - [id number] Implanted:Qty: 1 on 05/04/2022 by Daniel Koenig MD at [facility] Floris Left: Shoulder [employer] [id number] 12/18/2026 AR-3632 / / [id number] Floris Fibertak Fiberwire - [id number] Implanted:Qty: 1 on 05/04/2022 by Daniel Koenig MD at [facility] Floris Left: Shoulder [employer] [id number] 12/18/2026 AR-3632 / / [id number] Floris Suture Arthrex Bio Swivelock 5.5mm - [id number] Implanted:Qty: 1 on 05/04/2022 by Daniel Koenig MD at [facility] Floris Left: Shoulder [employer] [id number] 08/17/2025 AR-2323 [facility] / / [id number] Clip Ligation Resolution 360 Ultra 17mm - [id number] Implanted:Qty: 3 on 05/01/2023 by Gabriela Miller MD at [facility] Clip Implant N/A: Colon [employer] 12/25/2025 [id number] / Mesh Upsylon 86atx2mf Y - [id number] Implanted:Qty: 1 on 01/05/2021 by Maged Parry MD at [facility] Mesh N/A: Cervix [employer] [id number] 11/17/2022 [id number] / / [id number] 6.5mmx35 Mm Screw Implanted:Qty: 1 on 05/11/2024 by Daniel Koenig MD at [facility] Screw Left: Shoulder [employer] [id number] / / 38 Mm Screw Implanted:Qty: 2 on 05/11/2024 by Daniel Koenig MD at [facility] Screw Left: Shoulder [employer] [id number] / / 14 Mm Screw Implanted:Qty: 1 on 05/11/2024 by Daniel Koenig MD at [facility] Screw Left: Shoulder [employer] [id number] / / 42 Mm Screw Implanted:Qty: 1 on 05/11/2024 by Daniel Koenig MD at [facility] Screw Left: Shoulder [employer] [id number] / / Tornier Perform Reversed Cannulated Cocr Eccentric Gleosphere Cocr + [id number] Implanted:Qty: 1 on 05/11/2024 by Daniel Koenig MD at [facility] Shoulder Components Left: Shoulder [employer] [id number] 11/09/2027 [id number] / [id number] / Stanleyiniyobany Perform Humeral System Humeral Stem, Plus, Long [id number] Implanted:Qty: 1 on 05/11/2024 by Daniel Koenig MD at [facility] Shoulder Components Left: Shoulder [employer] [id number] 01/22/2029 [id number] / [id number] / Tornier Perfrom Humeral System Retentive Reversed Insert, Thickness +0mm Uhmwpe + [id number] Implanted:Qty: 1 on 05/11/2024 by Daniel Koenig MD at [facility] Shoulder Components Left: Shoulder [employer] [id number] 06/06/2028 [id number] / [id number] / Tornier Perform Reversed Augmented Gelnoid Lateralized Baseplate [id number] Implanted:Qty: 1 on 05/11/2024 by Daniel Koenig MD at [facility] Shoulder Components Left: Shoulder [employer] [id number] 10/16/2027 [id number] / [id number] / Sling Obtryx Halo - [id number] Implanted:Qty: 1 on 06/01/2021 by Maged Parry MD at [facility] Sling N/A: Urethra [employer] LIZBETH [id number] 03/26/2024 [id number] / / [id number] Sutre Floris Swivelock Ten[employer]is Biocomposite With Closed Peek Eyelet And #2 Fiber Wire Implanted:Qty: 1 on 05/04/2022 by Daniel Koenig MD at [facility] Left: Shoulder [employer] [id number] 01/18/2024 AR-1662 [facility] / / [id number] Explanted Type Area Hot Dog Vender Device Identifier Shelf Expiration Date Model / Serial / Lot 38 Mm Screw Explanted:Qty: 1 on 05/11/2024 at [facility] Screw Left: Shoulder [employer] [id number] / / Procedures Procedure Name Priority Date/Time Associated Diagnosis Comments OXR LT SHOULDER 2V Routine 05/26/2024 11:20 AM CDT S/P reverse total shoulder arthroplasty, left CT ABD+PEL W CON STAT 05/21/2024 7:55 AM CDT ECG 12-LEAD Routine 05/21/2024 7:13 AM CDT ELECTROCARDIOGRAM REPORT Routine 05/21/2024 7:13 AM CDT HC URINALYSIS AUTO W/O MICRO STAT 05/21/2024 7:11 AM CDT LACTIC ACID W REFLEX (SEPSIS) STAT 05/21/2024 7:11 AM CDT LIPASE STAT 05/21/2024 7:11 AM CDT TROPONIN, QUANT STAT 05/21/2024 7:11 AM CDT COMPREHENSIVE METABOLIC PANEL STAT 05/21/2024 7:11 AM CDT CBC W/DIFF AUTOMATED STAT 05/21/2024 7:11 AM CDT CBC W/DIFF AUTOMATED TIMED 05/12/2024 3:05 AM CDT BASIC METABOLIC PANEL TIMED 05/12/2024 3:05 AM CDT POCT GLUCOSE - ESTEVEZ DOCKED DEVICE Routine 05/11/2024 12:37 PM CDT XR SHOULDER LT 3V STAT 05/11/2024 12:29 PM CDT ART LINE PLACEMENT Routine 05/11/2024 10:21 AM CDT RECONSTR TOTAL SHOULDER IMPLANT 05/11/2024 10:09 AM CDT Rotator cuff arthropathy of left shoulder Case Notes SCHED BY OFFICE 03/20/24 [facility] Special Needs pretesting appt 04/28/24 9:30am, Dann, short stay (overnight), DR REQUESTS 90 MINUTES POCT GLUCOSE - ESTEVEZ DOCKED DEVICE Routine 05/11/2024 9:10 AM CDT USE ECHOCARDIOGRAM STAT 05/11/2024 8: 40 AM CDT ECG 12-LEAD Routine 04/28/2024 10:28 AM CDT Rotator cuff arthropathy of left shoulder TYPE & SCREEN Routine 04/28/2024 9:37 AM CDT Rotator cuff arthropathy of left shoulder SED RATE, ERYTHROCYTE (ESR) Routine 04/28/2024 9:37 AM CDT Rotator cuff arthropathy of left shoulder BASIC METABOLIC PANEL Routine 04/28/2024 9:37 AM CDT Rotator cuff arthropathy of left shoulder CBC W/DIFF AUTOMATED Routine 04/28/2024 9:37 AM CDT Rotator cuff arthropathy of left shoulder C-REACTIVE PROTEIN Routine 04/28/2024 9: 37 AM CDT Rotator cuff arthropathy of left shoulder HC URINALYSIS AUTO W/O MICRO Routine 04/28/2024 9:37 AM CDT Rotator cuff arthropathy of left shoulder CULTURE LOWER RESPIRATORY W/GRAM STAIN Routine 04/28/2024 9:36 AM CDT Rotator cuff arthropathy of left shoulder MAMMOGRAM GENERIC (SCAN ORDER) 01/02/2024 COLONOSCOPY Routine 05/01/2023 7:00 AM CDT BONE DENSITY/DEXA Routine 01/22/2022 11:09 AM BLOOD COLLECTOR 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 current use of aromatase inhibitor Personal history of irradiation, presenting hazards to health Osteopenia of neck of left femur HEPATITIS C ANTIBODY Routine 04/11/2020 1:23 PM BLOOD COLLECTOR Need for hepatitis C screening test from Last 3 Months or Most Recently Relevant to Health Maintenance Results * OXR LT SHOULDER 2V (05/26/2024 11:20 AM CDT) Anatomical Region Laterality Modality Radiographic Dominique ging Narrative 05/26/2024 11:30 AM CDT PROCEDURE: OXR LT SHOULDER 2V VIEWS: 2 DATE: 05/26/24 COMPARISONS: None CLINICAL INDICATION: FINDINGS: Reverse total shoulder arthroplasty fixed in good alignment. No signs of loosening or complication. No acute findings. IMPRESSION: Unremarkable reverse total shoulder replacement. Daniel Koenig MD GENERAL IMAGING Final Result * CT ABD+PEL W IV CON ONLY (05/21/2024 7:55 AM CDT) Anatomical Region Laterality Modality Abdomen Computed Tomogra phy 05/21/2024 8:07 AM CDT Impressions 05/21/2024 8:12 AM CDT Impression: Acute uncomplicated diverticulitis of the sigmoid colon. Given the wall thickening, consider colonoscopy of this region if not previously performed, after resolution of acute symptoms. Ordered By: EDWINA TONG Interpreted By: Jevon Mtz MD, 05/21/2024 8:07 AM Narrative 05/21/2024 8:12 AM CDT [facility] [address] [id number] abdomen and pelvis with IV contrast Comparison: CT abdomen pelvis 02/10/2023.. Indication: Left lower quadrant abdominal pain.. Technique: CT imaging was performed of the abdomen and pelvis following the administration of intravenous contrast. Iodinated contrast was used due to the indications for the examination, to improve disease detection and further define anatomy. Coronal and sagittal reformatted images were generated and reviewed. A dose lowering technique was utilized for this procedure which may include but is not limited to dose reduction techniques, automated exposure control, and/or the use of iterative reconstruction in accordance with ALARA principle. Findings: - Lower Thorax: Postsurgical changes of the right lower lobe with associated suture material and rounded atelectasis. No pleural or pericardial effusions. - Liver: Normal in morphology and enhancement. Hepatic simple cysts. Additional tiny hypoattenuating foci which are too small to characterize. The portal and hepatic veins are patent. - Biliary and Gallbladder: No intrahepatic or extrahepatic biliary ductal dilatation. The gallbladder is surgically absent. - Spleen: Normal in size. Low-attenuation lesion in the spleen measuring 4.1 cm, similar to prior, compatible with simple cyst. No specific follow-up is required. - Pancreas: Normal in appearance. - Adrenal Glands: Normal in appearance. - Kidneys: Status post right nephrectomy. No suspicious soft tissue seen within the resection bed. Normal enhancement of the left kidney. No hydronephrosis. - Abdominal and Pelvic Vasculature: No abdominal aortic aneurysm. Moderate atherosclerotic plaque. - Gastrointestinal Tract: There is colonic diverticulosis with wall thickening and stranding about the sigmoid colon compatible with acute diverticulitis. No evidence of perforation or abscess. The appendix is not visualized but no secondary signs of appendicitis. - Peritoneum/Mesentery/Retroperitoneum: No free fluid. No free intraperitoneal air. - Lymph Nodes: No retroperitoneal, mesenteric, or pelvic lymphadenopathy. - Bladder: Decompressed. - Pelvic Organs: Unremarkable. - Body Wall: Unremarkable. - Musculoskeletal: No aggressive appearing osseous lesions. Old bilateral inferior pubic rami fractures. Procedure Note Jevon Mtz MD - 05/21/2024 [facility] [address] [place] [address] CT abdomen and pelvis with IV contrast Comparison: CT abdomen pelvis 02/10/2023.. Indication: Left lower quadrant abdominal pain.. Technique: CT imaging was performed of the abdomen and pelvis followingthe administration of intravenous contrast. Iodinated contrast was useddue to the indications for the examination, to improve disease detectionand further define anatomy. Coronal and sagittal reformatted images weregenerated and reviewed. A dose lowering technique was utilized for thisprocedure which may include but is not limited to dose reductiontechniques, automated exposure control, and/or the use of iterativereconstruction in accordance with ALARA principle. Findings: - Lower Thorax: Postsurgical changes of the right lower lobe withassociated suture material and rounded atelectasis. No pleural orpericardial effusions. - Liver: Normal in morphology and enhancement. Hepatic simple cysts.Additional tiny hypoattenuating foci which are too small to characterize.The portal and hepatic veins are patent. - Biliary and Gallbladder: No intrahepatic or extrahepatic biliary ductaldilatation. The gallbladder is surgically absent. - Spleen: Normal in size. Low-attenuation lesion in the spleen measuring4.1 cm, similar to prior, compatible with simple cyst. No specificfollow-up is required. - Pancreas: Normal in appearance. - Adrenal Glands: Normal in appearance. - Kidneys: Status post right nephrectomy. No suspicious soft tissue seenwithin the resection bed. Normal enhancement of the left kidney. Nohydronephrosis. - Abdominal and Pelvic Vasculature: No abdominal aortic aneurysm.Moderate atherosclerotic plaque. - Gastrointestinal Tract: There is colonic diverticulosis with wallthickening and stranding about the sigmoid colon compatible with acutediverticulitis. No evidence of perforation or abscess. The appendix isnot visualized but no secondary signs of appendicitis. - Peritoneum/Mesentery/Retroperitoneum: No free fluid. No freeintraperitoneal air. - Lymph Nodes: No retroperitoneal, mesenteric, or pelviclymphadenopathy. - Bladder: Decompressed. - Pelvic Organs: Unremarkable. - Body Wall: Unremarkable. - Musculoskeletal: No aggressive appearing osseous lesions. Oldbilateral inferior pubic rami fractures. Impression: Acute uncomplicated diverticulitis of the sigmoid colon. Given the wall thickening, consider colonoscopy of this region if notpreviously performed, after resolution of acute symptoms. Ordered By: EDWINA TONG Interpreted By: Jevon Mtz MD, 05/21/2024 8:07 AM Edwina Tong DO CT Final Result * ECG 12 lead (05/21/2024 7:13 AM CDT) Only the most recent of2 resultswithin the time period is included. 05/21/2024 7:13 AM CDT Narrative [facility] - 05/22/2024 8:45 AM CDT [facility] Test Date: 2024-05-21 Pat Name: ESTRELLA RHOADES Department: 80 Room: EXAM 303 Gender: [id number]|2024-07-06 07:52:00|2024-07-06 07:51:00|XMS_ITS|BKG DAEMON|External Medical Summaries|[id number]|" Encounter Summary Created on: July 06, 2024 Estrella Rhoades : 1950 Sex: Female Author Organization [facility] Address [address] [place] [address] Care Team Providers Care Golf Caddie Name Role Phone Elaina Gagnon PA-C Primary Care Provider [phone] Gila Ibarra MD Unavailable [phone] Kelsey Royal MD Unavailable [phone] Aravind Jones NP Unavailable [phone] Macarionicol Leonardo Patel MD Unavailable [phone] Scar Snow MD Unavailable Abida Velásquez MD Unavailable [phone] Rafael Roberts Unavailable Daniel Ceja MD Unavailable Saray PEARSON MD, Cornelius Gibbons Unavailable [phone] Ja Toscano MD Unavailable Gustavo Toscano MD Unavailable Jocelyn Culp MD Unavailable Sebastian Pratt MD Unavailable Encounter Details Date Type Department Care Team (Late st Contact Info) Description 03/24/2020 Prep for Procedure [facility] [address] [place] [address] Gabriela Miller MD [address] [place] [address] [place] [address] Social History Tobacco Use Types Packs/Day Years Used Date Smoking Tobacco: Former Cigarettes 1 19 Smokeless Tobacco: Never Alcohol Use Standard Drinks/Week [...] 3, please move on to questions 3-9 2 02/08/2020 Comments No Sex and Gender Information Value Date Recorded Sex Assigned at Female 04/30/2019 8:35 AM CDT Legal Sex Female 10:57 PM CDT Gender Identity Female 04/30/2019 8:35 AM CDT Sexual Orientation Straight 04/30/2019 8: 35 AM CDT COVID-19 Exposure Response Date Recorded In the last month, have you been in contact with someone who was confirmed or suspected to have Coronavirus / COVID-19? No / Unsure 03/24/2020 2:55 PM BLOOD COLLECTOR documented as of this encounter Plan of Treatment Upcoming Encounters Date Type Department Care Team (Late st Contact Info) Description 07/09/2024 10:40 AM CDT Office Visit [facility] Orthopedic & Sports Medicine - [place] [address] [place] [address] Daniel Koenig MD [address] [address] [place] [address] 08/19/2024 1:30 PM CDT Appointment [facility] Ultrasound [address] [facility], [place] [id number] Gustavo Toscano MD [facility] [address] [place], [place] [id number] 04/29/2025 10:00 AM CDT Office Visit [facility] [address] [place] [phone] Radha Mcgraw, [employer] [facility]- [facility]. [place] [address] [place], [place] [id number] documented as of this encounter Results * PRE-SURGICAL/PRE-PROCEDURE CORONAVIRUS (COVID 19) (03/28/2020 10:28 AM BLOOD COLLECTOR) CORONAVIRUS SARS COV 2 PCR (RESP) NOT DETECTED NOT DETECTED 03/29/2020 8:46 PM BLOOD COLLECTOR [facility] Comment: A Not Detected (negative) test result for this test means that SARS- CoV-2 RNA was not present in the specimen above the limit of detection. A negative result does not rule out the possibility of COVID-19 and should not be used as the sole basis for treatment or patient management decisions. If COVID-19 is still suspected, based on exposure history together with other clinical findings, re-testing should be considered in consultation with public health authorities. Laboratory test results should always be considered in the context of clinical observations and epidemiological data in making a final diagnosis and patient management decisions. Please review the Fact Sheets and FDA authorized labeling available for health care providers and patients using the following websites: https://www.[employer]/home/Covid-19/HCP/NAAT/fact-sheet2 https://www.[employer]/home/Covid-19/Patients/NAAT/ fact-sheet2 This test has been authorized by the FDA under an Emergency Use Authorization (EUA) for use by authorized laboratories. Due to the current public health emergency, [facility] is receiving a high volume of samples from a wide variety of swabs and media for COVID-19 testing. In order to serve patients during this public health crisis, samples from appropriate clinical sources are being tested. Negative test results derived from specimens received in non-commercially manufactured viral collection and transport media, or in media and sample collection kits not yet authorized by FDA for COVID-19 testing should be cautiously evaluated and the patient potentially subjected to extra precautions such as additional clinical monitoring, including collection of an additional specimen. Methodology: Nucleic Acid Amplification Test (NAAT) includes RT-PCR or TMA Additional information about COVID-19 can be found at the [facility] website: www.BigDeal/Covid19. Test performed at [facility] [place] [address] [place] [address] Director: BETH VAN DO,MPH FIRST TEST YES 03/28/2020 10:28 AM [facility] EMPLOYED IN HEALTHCARE NO 03/28/2020 10:28 AM [facility] SYMPTOMATIC DEFINED BY CDC NO 03/28/2020 10:28 AM [facility] DATE OF SYMPTOM ONSET UNKNOWN 03/28/2020 10:34 AM [facility] HOSPITALIZATION STATUS NO 03/28/2020 10:28 AM [facility] PATIENT IN ICU NO 03/28/2020 10:28 AM [facility] RESIDENT OF [facility] NO 03/28/2020 10:28 AM BLOOD COLLECTOR [facility] NOT 03/28/2020 10:34 AM BLOOD COLLECTOR [facility] PATIENT'S RACE WHITE OR 03/28/2020 10:28 AM BLOOD COLLECTOR [facility] ETHNICITY NONHISPANIC 03/28/2020 10:28 AM BLOOD COLLECTOR [facility] SOURCE (QST) NASOPHARYNGEAL SWAB 03/28/2020 10:28 AM BLOOD COLLECTOR [facility] NASOPHARYNGEAL SWAB / Unknown 03/28/2020 10:28 AM BLOOD COLLECTOR us Gabriela Miller MD MICROBIOLOGY - GENERAL ORDER MENDY Final Result [facility] [address] [place] [address], [facility] [address] [address], documented in this encounter Visit Diagnoses Diagnosis Pre-op testing- Primary Preoperative examination, unspecified documented in this encounter Additional Health Concerns Infection Onset Date Last Indicated Resolved Time COVID-19 Rule Out 03/28/2020 03/28/2020 03/29/2020 8:46 PM BLOOD COLLECTOR Assessment Noted Time PHQ-9 Depression Total Score: 6 02/08/20 20 1:06 PM BLOOD COLLECTOR documented as of this encounter Care Teams Golf Caddie Relationship Specialty Start Date End Date Elaina Gagnon PA-C [address] [facility] [address] [place] [address] PCP - General PHYSICIAN SEXUAL ASSAULT COUNSELOR 01/06/18 Gila Ibarra MD [facility] [place] [address] SURGERY 01/06/18 Kelsey Royal MD [address] DEPT RADIATION ONCOLOGY, [place] [address] RADIATION ONCOLOGY 01/06/18 Aravind Jones PRODUCTION POSTING CLERK [address] DEPT RADIATION ONCOLOGY, [place] [address] NURSE PRACTITIONER 01/06/18 Leonardo Ramirez MD [address] DEPT RADIATION ONCOLOGY, [place] [address] ORTHOPAEDIC SURGERY 01/06/18 Scar Snow MD [address] [place] [id number] Referring Physician OPHTHALMOLOGY 01/06/18 Abida Velásquez MD [address] [place] [address] OBGYN 01/06/18 Rafael Roberts [address] [place] [id number] DENTAL GROUP SALES REPRESENTATIVE 01/06/18 Daniel Ceja MD [address] [place] [address] Consulting Physician GENERAL SURGERY 01/06/18 Cornelius So III, MD [address] [place] [address] PULMONARY DISEASE 01/06/18 Ja Toscano MD [address] [place] [address] Referring Physician OTOLARYNGOLOGY 12/06/19 Gustavo Toscano MD [address] [place] [address] Consulting Physician CARDIOVASCULAR DISEASE 04/25/22 Jocelyn Culp MD [address] [place] [address] ORTHOPAEDIC SURGERY 08/10/22 Sebastian Pratt MD [address] [facility] [address] [address] ORTHOPAEDIC SURGERY 02/26/23 Dr. Rena Alexander Medical Oncologist ONCOLOGY 01/06/18 Dr. Taya Orourke, OPTOMETRY 01/06/18 Dr. Kyle Alejandro 01/06/18 Dr. Roe Malik CARDIOTHORACIC SURGERY 01/06/18 Dr. Dwight Javed ONCOLOGY 01/06/18 documented as of this encounter "
--- OUTSIDE RECORDS SUMMARY | 2024-07-06 07:52 | XMS_ITS | Encounter Summary ---
Author Organization [facility] Address [facility] [place] [address] Care Team Providers Care Clinical Research Manager Name Role Phone Elaina Gagnon PA-C Primary Care Provider [phone] Gila Ibarra MD Unavailable Kelsey Royal MD Unavailable [phone] Aravind Jones ROLLER LEVELER Unavailable [phone] Leonardo Ramirez MD Unavailable Scar Snow MD Unavailable [phone] Abida Velásquez MD Unavailable [phone] Rafael Roberts Unavailable Daniel Ceja MD Unavailable Saray PEARSON MD, Carlos C Unavailable Ja Toscano MD Unavailable Gustavo Toscano MD Unavailable Jocelyn Culp MD Unavailable Sebastian Pratt MD Unavailable Encounter Details Date Type Department Care Team (Late st Contact Info) Description 03/21/2022 [facility] [address] [facility] [address] [facility] Provider Dr. Strong's 03/19/2022 Note Social History Tobacco Use Types Packs/Day Years Used Date Smoking Tobacco: Former Cigarettes 1 19 0 02/18/1967 - 02/18/1986 Smokeless Tobacco: Never Comments:year quit 1986, tae tered cigarettes Alcohol Use Standard Drinks/Week Comments Yes 3 (1 standard drink = 0.6 oz pur e alcohol) AUDIT-C Answer Date Recorded Frequency of Alcohol Consumption 2-3 times a wee k 12/30/2017 Average Number of Drinks 1 or 2 018 Frequency of Binge Drinking Never 12/19 PHQ-2 Answer Date Recorded Patient Health Questionnaire-2 Score 1 03/13/2022 Comments No Sex and Gender Information Value [...] suspected to have Coronavirus/COVID-19? No / Unsure 03/19/2022 11:27 AM FIELD OPERATIONS SUPERVISOR documented as of this encounter Plan of Treatment Upcoming Encounters Date Type Department Care Team (Late st Contact Info) Description 07/09/2024 10:40 AM CDT Office Visit [facility] Medical Group Orthopedic & Sports Medicine - [place] [address] [place] [address] Daniel Koenig MD [address] [address] [place] [address] 08/19/2024 1:30 PM CDT Appointment [facility] [address] [place], [place] [address] Gustavo Toscano MD [facility]. [place] [address] [place] [address] 04/29/2025 10:00 AM CDT Office Visit [facility] [address] [place] [phone] Radha Mcgraw, ANP-[facility]. [facility] [address] [place] [address] documented as of this encounter Visit Diagnoses Not on filedocumented in this encounter Additional Health Concerns Assessment Noted Time PHQ-9 Depression Total Score: 0 05/05/19 22 10:59 AM CDT documented as of this encounter Care Teams Clinical Research Manager Relationship Specialty Start Date End Date Elaina Gagnon PAAlvaC [address] [facility] [address] [place] [address] PCP - General PHYSICIAN CHILD CARE WORKER 01/06/18 Gila Ibarra MD [address] [place] [phone] SURGERY 01/06/18 Kelsey Royal MD [address] DEPT RADIATION ONCOLOGY, [place] [address] RADIATION ONCOLOGY 01/06/18 Aravind Jones NP [address] DEPT RADIATION ONCOLOGY, [place] [address] NURSE PRACTITIONER 01/06/18 Leonardo Ramirez MD [address] DEPT RADIATION ONCOLOGY, [place] [address] ORTHOPAEDIC SURGERY 01/06/18 Scar Snow MD [address] [address] Referring Physician OPHTHALMOLOGY 01/06/18 Abida Velásquez MD [address] [address] OBGYN 01/06/18 Rafael Roberts [address] [place] [id number] DENTAL EXTRUDER OPERATOR HORIZONTAL 01/06/18 Daniel Ceja MD [address] [place] [address] Consulting Physician GENERAL SURGERY 01/06/18 Cornelius So III, MD [address] [place] [address] PULMONARY DISEASE 01/06/18 Ja Toscano MD [address] [place] [address] Referring Physician OTOLARYNGOLOGY 12/06/19 Gustavo Toscano MD [address] [address] Consulting Physician CARDIOVASCULAR DISEASE 04/25/22 Jocelyn Culp MD [address] [place] [address] ORTHOPAEDIC SURGERY 08/10/22 Sebastian Pratt MD [address] [facility] [address] [place] [address] ORTHOPAEDIC SURGERY 02/26/23 Dr. Rena Alexander Medical Oncologist ONCOLOGY 01/06/18 Dr. Taya Orourke, OD OPTOMETRY 01/06/18 Dr. Kyel Alejandro 01/06/18 Dr. Roe Malik CARDIOTHORACIC SURGERY 01/06/18 Dr. Dwight Javed ONCOLOGY 01/06/18 documented as of this encounter
--- OUTSIDE RECORDS SUMMARY | 2024-07-06 07:52 | XMS_ITS | Encounter Summary ---
Author Organization [facility] Address [facility] [place] [address] Care Team Providers Care Inbound Customer Service Representative Name Role Phone Sebastian Blankenship MD Primary Care Provider Elaina Gagnon PA-C Primary Care Provider Gila Ibarra MD Unavailable Kelsey Royal MD Unavailable [phone] [place] MD Unavailable [phone] Aravind Jones NP Unavailable [phone] Leonardo Ramirez MD Unavailable [phone] Scar Snow MD Unavailable Abida Velásquez MD Unavailable [phone] Rafael Roberts Unavailable Daniel Ceja MD Unavailable Saray PEARSON MD, Carlos C Unavailable Ja Toscano MD Unavailable Gustavo Toscano MD Unavailable Jocelyn Culp MD Unavailable Sebastian Pratt MD Unavailable [phone] Encounter Details Date Type Department Care Team (Late st Contact Info) Description 12/10/2000 Abstract [facility] Conversion , Avery Merino MD Social History Tobacco Use Types Packs/Day [...] Description 07/09/2024 10:40 AM CDT Office Visit [facility] Medical Group Orthopedic & Sports Medicine - [place] [address] [place] [address] Daniel Koenig MD [address] [address] [place] [address] 08/19/2024 1:30 PM CDT Appointment [facility] Ultrasound [address] [place] [address] Gustavo Toscano MD [facility]. [facility] [address] [place], [place] [address] 04/29/2025 10:00 AM CDT Office Visit [facility] [address] [place] [phone] Radha Mcgraw, ANP- [facility]. [facility] [address] [place], [place] [address] documented as of this encounter Visit Diagnoses Not on filedocumented in this encounter Additional Health Concerns Infection Onset Date Last Indicated Resolved Time COVID-19 Rule Out 03/28/2020 03/28/2020 03/29/2020 8:46 PM CONTRACT LAW SPECIALIST documented as of this encounter Care Teams Inbound Customer Service Representative Relationship Specialty Start Date End Date Sebastian Blankenship MD [id number] [place] [address] PCP - General 03/23/14 01/05/18 Elaina Gagnon PA-C [address] [facility] 112 [place] [address] PCP - General PHYSICIAN ANIMAL PHYSIOLOGIST 01/06/18 Gila Ibarra MD [address] [place] [address] SURGERY 01/06/18 Kelsey Royal MD [address] DEPT RADIATION ONCOLOGY, [place] [address] RADIATION ONCOLOGY 01/06/18 [place] MD [address] DEPT RADIATION ONCOLOGY, [place] [address] SURGERY 01/06/18 12/05/19 Aravind Jones, HOUSE STEWARD/STEWARDESS [address] DEPT RADIATION ONCOLOGY, [place] [address] NURSE PRACTITIONER 01/06/18 Leonardo Ramirez MD [address] DEPT RADIATION ONCOLOGY, [place] [address] ORTHOPAEDIC SURGERY 01/06/18 Scar Snow MD [address] [address] Referring Physician OPHTHALMOLOGY 01/06/18 Abida Velásquez MD [address] [facility] 5TH [place] [address] OBGYN 01/06/18 Rafael Roberts [address] [place] [address] DENTAL WORKFORCE PLANNER 01/06/18 Daniel Ceja MD [address] [place] [address] Consulting Physician GENERAL SURGERY 01/06/18 Cornelius So III, MD [address] [place] [address] PULMONARY DISEASE 01/06/18 Ja Toscano MD [address] [place] [address] Referring Physician OTOLARYNGOLOGY 12/06/19 Gustavo Toscano MD [address] [address] Consulting Physician CARDIOVASCULAR DISEASE 04/25/22 Jocelyn Culp MD [address] [place] [address] ORTHOPAEDIC SURGERY 08/10/22 Sebastian Pratt MD [address] [facility] [facility] [address] [place] [address] ORTHOPAEDIC SURGERY 02/26/23 Dr. Rena Alexander Medical Oncologist ONCOLOGY 01/06/18 Dr. Taya Orourke, OD OPTOMETRY 01/06/18 Dr. Kyle Alejandro 01/06/18 Dr. Roe Malik CARDIOTHORACIC SURGERY 01/06/18 Dr. Dwight Javed ONCOLOGY 01/06/18 documented as of this encounter
--- OUTSIDE RECORDS SUMMARY | 2024-07-06 07:52 | XMS_ITS | Encounter Summary ---
Author Organization [facility] Address [address] [place] [address] Phone Care Team Providers Care Strap Buckler Machine Name Role Phone Sebastian Blankenship MD Primary Care Provider + Sebastian Blankenship MD Primary Care Provider + Sebastian Blankenship MD Primary Care Provider + Kamaljit Byrd MD Primary Care Provider + [phone] Kamaljit Byrd MD Primary Care Provider + [phone] Kamaljit Byrd MD Unavailable [phone] Rogelio Perkins MD Unavailable [phone] [place] MD Unavailable [phone] Kyle Alejandro MD Unavailable [phone] Kelsey Royal MD PhD Unavailable [phone] Rena Alexander MD Unavailable [phone] Gila Ibarra MD Unavailable [phone] Aravind Jones SYSTEM TRAINER Unavailable [phone] Anya Staton NP Unavailable [phone] Elaina Gagnon Primary Care Provider + Elaina Gagnon Primary Care Provider + Gustavo Toscano MD Unavailable Encounter Details Date Type Department Care Team (Late st Contact Info) Description 10/22/2017 Telephone [facility] Advanced Medicine ([facility]) - [facility] [address] [facility] 11th [place] [address] [place] [address] Angelica Yousif Social History Tobacco Use Types Packs/Day Years Used Date Smoking Tobacco: Never Assessed Comments Unknown Sex and Gender Information Value Date Recorded Sex Assigned at Not on file Legal Sex Female 7:51 AM ENAMEL APPLIER Gender Identity Female 11/03/2019 11:06 AM CDT Sexual Orientation Straight 11/03/2019 11 :06 AM CDT documented as of this encounter Plan of Treatment Not on file documented as of this encounter Visit Diagnoses Not on filedocumented in this encounter Care Teams Strap Buckler Machine Relationship Specialty Start Date End Date Sebastian Blankenship MD PCP - General 05/18/16 10/24/17 Sebastian Blankenship MD PCP - General Family Medicine 10/25/17 12/01/17 Sebastian Blankenship MD PCP - General 12/02/17 05/05/18 Kamaljit Byrd MD [address] [facility] [place] [address] [place], [place] [id number] PCP - General 05/06/18 03/07/20 Kamaljit Byrd MD [address] [place] [address] [place], [place] [id number] PCP - General 03/08/20 01/14/23 Elaina Gagnon PA [address] [place] [address] PCP - General Physician Hoop Cutter 01/15/23 04/02/23 Elaina Gagnon PA [address] [place] [address] PCP - General Physician Hoop Cutter 04/03/23 Kamaljit Byrd MD [address] [place] [address] 03/08/20 06/26/21 Rogelio Perkins MD [address] [place] [address] Medical Oncologist/Hematologis t Medical Oncology 10/25/17 [place] MD [address] [place] [address] Referring Physician Surgery 10/25/17 Kyle Alejandro MD [address] [place] [address] Referring Physician Urology 10/25/17 Kelsey Royal MD PhD [address] [place] [address] Radiation Oncologist Radiation Oncology 01/02/18 Rena Alexander MD [address] [place] [address] Medical Oncologist/Hematologis t Medical Oncology 04/23/18 Gila Ibarra MD [address] [place] [address] Surgeon Surgical Oncology 04/23/18 Aravind Jones NP [address] [place] [address] Nurse Practitioner Nurse Practitioner 10/11/20 Anya Staton NP [address] [place] [address] Nurse Practitioner Medical Oncology 06/27/21 Gustavo Toscano MD [address] [id number] Referring Physician Cardiovascular Disease 05/24/23 documented as of this encounter
== END 2024-07-06 07:44 | disposition home or self-care (01) ==
LOC: ANHSURGERY 07:47
PROVIDERS: PCP Physician Assistant; Visit Provider Urology
DX: N36.42 Intrinsic sphincter deficiency (ISD) (principal); Z01.812 Encounter for preprocedural laboratory examination
CPT/HCPCS: 87086

== ENCOUNTER 2024-07-17 01:18 | Day surgery (SDC) | payer MEDICARE, BC, SELFPAY ==
[2024-07-02 13:48] VITALS: BMI 26.4
--- NOTE | 2024-07-02 14:21 | PC.NURSE ---
Report to the Outpatient Waiting Room, entrance under the green pavilion located off [facility], at time ___8:30AM____ on date ___07/17/24____. Planned Procedure Time: ___10:30AM____.? Time changes happen often and if your time is changed the preop area will call you the afternoon before. - You and your visitor will be asked to self-screen and do not enter if you have any COVID symptoms. Please call surgeon if you need to reschedule. - A mask is optional within the hospital at this time. Patients may have clear liquids (water, carbonated beverages, clear teas, apple juice) until 3 hours prior to surgery (7:30AM) with a maximum of 20 ounces. - No food from midnight until time of surgery and no smoking, or chewing tobacco (or any form of nicotine). No chewing gum, candy or mints. Take only the following medications with a SIP of water on the morning of surgery: ___AMLODIPINE, VENLAFAXINE DO NOT STOP ANY OF YOUR OTHER PRESCRIPTION MEDICATIONS PRIOR TO SURGERY EXCEPT THE FOLLOWING Hold all vitamins and supplements for 3 days per anesthesiologist.-LAST DOSE 07/13/24 Medications to discontinue per physician __HOLD ASPIRIN AND FISH OIL 7 DAYS PRE-OP PER DR CORMIER Date to take last dose 07/09/24 Please no make-up, nail japanese, hairspray, perfume, deodorant, or body powder the day of surgery.? No jewelry (including any body piercings) or valuables the day of surgery, leave them at home.? Please take a shower or bath the night before, or the morning of, surgery with an antibacterial soap.? Wear comfortable, loose fitting clothing.? - Jewelry must be removed prior to entering the operating room.? Rings and piercings that are not removed may be cut off. - The hospital will not accept responsibility for valuables.? - Please leave all valuables, including medications, at home the day of surgery. If you are going home after surgery, a licensed residential driver must drive you home.? - NO public transportation without another adult if you receive anesthesia. - We recommend that an adult stay with you for 24 hours following discharge. - We also recommend that you do not drive, make important decision, drink alcoholic beverages, or take any drugs that were not prescribed by your health care provider for at least 24 hours after your discharge time. Follow any additional instructions given to you from your surgeon. Telephone instructions given to ____PATIENT and asked if any additional questions and then verbalized understanding. Patient advised to call surgeon office or pre surgery nurse liaison [phone] if any additional questions.
--- OUTSIDE RECORDS SUMMARY | 2024-07-17 01:21 | XMS_ITS | Encounter Summary ---
Author Organization [facility] Address [address] [place] [address] Care Team Providers Care System Specialist Name Role Phone Sebastian Blankenship MD Primary Care Provider + Kamaljit Byrd MD Primary Care Provider + [phone] Kamaljit Byrd MD Primary Care Provider + [phone] Kamaljit yBrd MD Unavailable [phone] Rogelio Perkins MD Unavailable [phone] [place] MD Unavailable [phone] Kyle Alejandro MD Unavailable [phone] Kelsey Royal MD PhD Unavailable [phone] Rena Alexander MD Unavailable + [phone] Gila Ibarra MD Unavailable [phone] Aravind Jones CHILD CARE EDUCATION COORDINATOR Unavailable [phone] Anya Staton CHILD CARE EDUCATION COORDINATOR Unavailable [phone] Elaina Gagnon Primary Care Provider + Elaina Gagnon Primary Care Provider + Gustavo Toscano MD Unavailable Encounter Details Date Type Department Care Team (Late st Contact Info) Description 01/06/2018 Telephone [facility] Radiation Oncology [address] [place] [address] Yoly Silva MA Social History Tobacco Use Types Packs/Day Years Used Date Smoking Tobacco: Former Cigarettes 1986 Smokeless Tobacco: Never Alcohol Use Standard Drinks/Week Comments Yes 2 (1 standard drink = 0.6 oz pur e alcohol) Comments No Sex and Gender Information Value Date Recorded Sex Assigned at Not on file Legal Sex Female 7:51 AM CANCELING AND CUTTING CONTROL CLERK Gender Identity Female 11/03/2019 11:06 AM CDT Sexual Orientation Straight 11/03/2019 11 :06 AM CDT documented as of this encounter Plan of Treatment Upcoming Encounters Date Type Department Care Team (Latest Contact Info) Description 08/07/2024 1:10 PM CDT Hospital Encounter [facility] [place] [address] [place] [address] Sebastian Pratt MD [address] [place] [address] DR DUGGAN [address] [place] [address] 08/07/2024 1:10 PM CDT - 08/07/2024 3:30 PM CDT Surgery [facility] [place] [address] [place] [address] Sebastian Pratt MD [address] [place] [address] DR DUGGAN [address] [place] [address] LEFT TOTAL KNEE ARTHROPLASTY Scheduled Procedures Name Priority Associated Diagnoses Date/Ti me ARTHROPLASTY TOTAL KNEE Primary osteoarthritis of left knee 08/07/2024 1:10 PM CDT documented as of this encounter Visit Diagnoses Not on filedocumented in this encounter Care Teams System Specialist Relationship Specialty Start Date End Date Sebastian Blankenship MD PCP - General 12/02/17 05/05/18 Kamaljit Byrd MD [address] [address] PCP - General 05/06/18 03/07/20 Kamaljit Byrd MD [address] [place] [address] PCP - General 03/08/20 01/14/23 Elaina Gagnon PA [address] [place] [address] PCP - General Physician Park Guard 01/15/23 04/02/23 Elaina Gagnon PA [address] [place] [address] PCP - General Physician Park Guard 04/03/23 Kamaljit Byrd MD [address] [place] [address] 03/08/20 06/26/21 Rogelio Perkins MD [address] [place] [address] Medical Oncologist/Hematologis t Medical Oncology 10/25/17 [place] MD [address] [place] [address] Referring Physician Surgery 10/25/17 Kyle Alejandro MD [address] [place] [address] Referring Physician Urology 10/25/17 Kelsey Royal MD PhD [address] [place] [address] Radiation Oncologist Radiation Oncology 01/02/18 Rena Alexander MD [address] [place] [address] Medical Oncologist/Hematologis t Medical Oncology 04/23/18 Gila Ibarra MD [address] [facility] [address] [place] [address] Surgeon Surgical Oncology 04/23/18 Aravind Jones NP [address] [place] [address] Nurse Practitioner Nurse Practitioner 10/11/20 Anya Staton NP [address] [place], [place] [id number] Nurse Practitioner Medical Oncology 06/27/21 Gustavo Toscano MD [id number] [place], [place] [id number] Referring Physician Cardiovascular Disease 05/24/23 documented as of this encounter
--- OUTSIDE RECORDS SUMMARY | 2024-07-17 01:21 | XMS_ITS | Encounter Summary ---
Author Organization [facility] Address [address] [place] [address] Phone Care Team Providers Care Shredder Tender Name Role Phone Kamaljit Byrd MD Primary Care Provider [phone] Rogelio Perkins MD Unavailable [phone] [place] MD Unavailable [phone] Kyle Alejandro MD Unavailable [phone] Kelsey Royal MD PhD Unavailable Rena Alexander MD Unavailable [phone] Gila Ibarra MD Unavailable [phone] Aravind Jones WATCH REPAIRER Unavailable [phone] Anya Staton WATCH REPAIRER Unavailable [phone] Elaina Gagnon Primary Care Provider + Elaina [...] on file 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 Gender Identity Female 11/03/2019 11:06 AM CDT Sexual Orientation Straight 11/03/2019 11 :06 AM CDT documented as of this encounter Plan of Treatment Upcoming Encounters Date Type Department Care Team (Latest Contact Info) Description 08/07/2024 1:10 PM CDT Hospital Encounter [facility] OR [address] [place] [address] Sebastian Pratt MD [address] [place] [address] DR DU[address] [place] [address] 08/07/2024 1:10 PM CDT - 08/07/2024 3:30 PM CDT Surgery [facility] OR [address] [place] [address] Sebastian Pratt MD [address] [place] [address] DR DUGG[address] [place] [address] LEFT TOTAL KNEE ARTHROPLASTY Scheduled Procedures Name Priority Associated Diagnoses Date/Ti me ARTHROPLASTY TOTAL KNEE Primary osteoarthritis of left knee 08/07/2024 1:10 PM CDT documented as of this encounter Procedures Procedure Name Priority Date/Time Associated Diagnosis Comments SCAN - LABS 05/01/2022 documented in this encounter Results * SCAN - LABS (05/01/2022) us Provider Scanning Final Result documented in this encounter Visit Diagnoses Not on filedocumented in this encounter Care Teams Shredder Tender Relationship Specialty Start Date End Date Kamaljit Byrd MD [address] [address] PCP - General 03/08/20 01/14/23 Elaina Gagnon PA [address] [place] [address] PCP - General Physician Sound Engineer 01/15/23 04/02/23 Elaina Gagnon PA [address] [place] [address] PCP - General Physician Sound Engineer 04/03/23 Rogelio Perkins MD [address] [place] [address] Medical Oncologist/Hematologis t Medical Oncology 10/25/17 [place] MD [address] [place] [address] Referring Physician Surgery 10/25/17 Kyle Alejandro MD [address] [place] [address] Referring Physician Urology 10/25/17 Kelsey Royal MD PhD [address] [place] [address] Radiation Oncologist Radiation Oncology 01/02/18 Rena Alexander MD [address] [place] [address] Medical Oncologist/Hematologis t Medical Oncology 04/23/18 Gila Ibarra MD [address] [place] [address] Surgeon Surgical Oncology 04/23/18 Aravind Jones NP [address] [place] [address] Nurse Practitioner Nurse Practitioner 10/11/20 Anya Staton NP [address] [place] [address] Nurse Practitioner Medical Oncology 06/27/21 Gustavo Toscano MD [address] [address] Referring Physician Cardiovascular Disease 05/24/23 documented as of this encounter
--- OUTSIDE RECORDS SUMMARY | 2024-07-17 01:21 | XMS_ITS | Encounter Summary ---
Author Organization [facility] Address [address] [place] [address] Care Team Providers Care Meter/Relay Technician Name Role Phone LindenkassidyRogelio MD Unavailable [phone] [place] MD Unavailable [phone] Kyle Alejandro MD Unavailable [phone] Kelsey Royal MD PhD Unavailable [phone] Rena Alexander MD Unavailable [phone] Gila Ibarra MD Unavailable [phone] Aravind Jones ANGLE FURNACEMAN Unavailable [phone] Anya Staton ANGLE FURNACEMAN Unavailable Elaina Gagnon Primary Care Provider + Gustavo Toscano MD Unavailable Reason for Visit * Reason Onset Date Comments surgery 06/30/2024 Encounter Details Date Type Department Care Team (Late st Contact Info) Description 06/30/2024 Telephone [facility] Medicine [address] [place] [address] [address] [place] [address] Sebastian Pratt MD [address] [place] [address] [address] [place] [address] surgery Social History Tobacco Use Types Packs/Day Years Used Date Smoking Tobacco: Former Cigarettes 0.8 20 0 02/18/1966 - 02/18/1986 Smokeless Tobacco: Never Alcohol Use Standard Drinks/Week Comments Yes 2 (1 standard drink = 0.6 oz pur e alcohol) [facility] Utilities Answer Date Recorded In the [...] often do you attend chur ch or mandaeism services? More than 4 times per year 06/10/2023 Do you belong to any clubs o r organizations such as yazidi groups, unions, fraternal or athletic groups, or [...] place to sleep or slept in a fdc (including now)? No 06/10/2023 Personal Safety Answer Date Recorded Have you ever been in or are you currently in a harmful physical or emotional relationship or is someone making you feel afraid or unsafe? 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 * Telephone Encounter - Razia Cody - 07/06/2024 2:[address] [facility] Pt called back. * Telephone Encounter - Brent Chaparro MA [...] Description 08/07/2024 1:10 PM CDT Hospital Encounter [facility] OR [address] [place] [address] Sebastian Pratt MD [address] [place] [address] DR DUGGAN [address] [place] [address] 08/07/2024 1:10 PM CDT - 08/07/2024 3:30 PM CDT Surgery [facility] [place] [address] [place] [address] Sebastian Pratt MD [address] [place] [address] DR DUGGAN [address] [place] [address] LEFT TOTAL KNEE ARTHROPLASTY Scheduled Procedures Name Priority Associated Diagnoses Date/Ti me ARTHROPLASTY TOTAL KNEE Primary osteoarthritis of left knee 08/07/2024 1:10 PM CDT documented as of this encounter Visit Diagnoses Not on filedocumented in this encounter Care Teams Meter/Relay Technician Relationship Specialty Start Date End Date Elaina Gagnon PA [address] [place] [address] PCP - General Physician Finish Sander 04/03/23 Rogelio Perkins MD Medical Oncologist/Hematologis t Medical Oncology 10/25/17 [place] MD [address] [place] [address] Referring Physician Surgery 10/25/17 Kyle Alejandro MD [address] [place] [address] Referring Physician Urology 10/25/17 Kelsey Royal MD PhD [address] [place] [address] Radiation Oncologist Radiation Oncology 01/02/18 Rena Alexander MD [address] [place] [address] Medical Oncologist/Hematologis t Medical Oncology 04/23/18 Gila Ibarra MD [address] [place] [address] Surgeon Surgical Oncology 04/23/18 Aravind Jones NP [address] [place] [address] Nurse Practitioner Nurse Practitioner 10/11/20 Anya Staton NP [address] [place] [address] Nurse Practitioner Medical Oncology 06/27/21 Gustavo Toscano MD [address] [place], [place] [address] Referring Physician Cardiovascular Disease 05/24/23 documented as of this encounter
--- OUTSIDE RECORDS SUMMARY | 2024-07-17 01:21 | XMS_ITS | Referral Summary ---
Author Organization [facility] Address [address] [address] [facility] [place] [address] Care Team Providers Care Clinic Coordinator Name Role Phone Rogelio Perkins MD Unavailable [phone] [place] MD Unavailable [phone] Kyle Alejandro MD Unavailable [phone] Kelsey Royal MD PhD Unavailable Rena Alexander MD Unavailable [phone] Gila Ibarra MD Unavailable [phone] Aravind Jones ELECTRICAL MAINTENANCE ENGINEER Unavailable [phone] Anya Staton NP Unavailable [phone] Elaina Gagnon Primary Care Provider + Gustavo Toscano MD Unavailable Encounters Date Type Department Care Team Description 07/14/2024 Orders Only [facility] Orthopedics and Sports Medicine [facility] [address] [place] [address] Sebastian Pratt MD Chronic pain of left knee (Primary Dx) 06/30/2024 Telephone [facility] Orthopedics and Sports Medicine [facility] [address] [place] [address] Sebastian Pratt MD surgery 06/08/2024 12:03 PM CDT - 06/08/2024 11:59 PM CDT Hospital Encounter [facility] [address] [place] [address] Chronic pain of left knee Discharge Disposition: Discharge to home or self care 06/08/2024 11:45 AM CDT - 06/08/2024 11:59 PM CDT Hospital Encounter [facility] [address] [place] [address] Chronic pain of right knee Discharge Disposition: Discharge to home or self care 06/08/2024 11:45 AM CDT Office Visit [facility] Orthopedics and Sports Medicine [address] [place] [address] [address] [place] [address] Sebastian Pratt MD Chronic pain of right [...] (eight) hours as needed for pain Active og-2-xsb-epa-fi sh oil-vit D3 [phone] gh-oc-fn-unit capsule Take 1 capsule by mouth nightly Juan Diegorene Green brand name (from Vetr) Active ku-jw-maer-FA-C a carb-vit K (WOMEN'S MULTIVITAMIN) 18 mg-400 [...] Active Problems Problem Noted Date Diagnosed Date Primary osteoarthritis of left knee 07/14/2024 Status post total knee replacement using cement, right 06/28/2023 Orthopedic aftercare 06/28/2023 Right knee pain 06/28/2023 Depression 06/09/2023 Overactive bladder 06/09/2023 Arthritis of right knee 06/07/2023 Primary osteoarthritis of right knee 04/22/2023 Incomplete uterovaginal prolapse 11/28/2020 History of colon polyps 03/08/2020 rn long term care current use of aromatase inhibitor 08/2018 Bone disorder 04/24/2018 Encounter for follow-up exam ination after completed treatment for malignant neoplasm 04/23/2018 Seborrheic dermatitis 04/23/2018 History of breast cancer 04/20/2018 Personal history of irradiation 04/20/2018 Essential (primary) hypertension 12/01/2017 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 Gender Identity Female 11/03/2019 11:06 AM CDT Sexual Orientation Straight 11/03/2019 11 :06 AM CDT Last Filed Vital Signs Vital Sign Reading Time Taken Comments Blood Pressure 139/74 12/31/2023 1:18 PM PHYSICS TUTOR Pulse 65 12/31/2023 1:18 PM PHYSICS TUTOR Temperature 36.4 C (97.5 F) 12/31/2023 1:18 PM PHYSICS TUTOR Respiratory Rate 16 12/31/2023 1:18 PM PHYSICS TUTOR Oxygen Saturation 98% 12/31/2023 1:18 PM PHYSICS TUTOR Inhaled Oxygen Concentration - - Weight 70 kg (154 lb 6.4 oz) 12/31/2023 1:18 PM PHYSICS TUTOR Height 162.6 cm (5' 4) 06/07/2023 4:14 PM CDT Body Mass Index 26.5 06/07/2023 4:14 PM CDT Plan of Treatment Upcoming Encounters Date Type Department Care Team (Latest Contact Info) Description 08/07/2024 1:10 PM CDT Hospital Encounter [address] [address] Sebastian Pratt MD [address] [place] [address] [address] 08/07/2024 1:10 PM CDT - 08/07/2024 3:30 PM CDT Surgery [facility] Main OR [address] [place] [address] Sebastian Pratt MD [address] [address] [place] [address] LEFT TOTAL KNEE ARTHROPLASTY Scheduled Procedures Name Priority Associated Diagnoses Date/Ti me ARTHROPLASTY TOTAL KNEE Primary osteoarthritis of left knee 08/07/2024 1:10 PM CDT Medical Devices Implanted Type Area Health Insurance Adjuster Device Identifier Shelf Expiration Date Model / Serial / Lot [employer] Simplex P Radiopaque Full Dose Cement Bone Sterile 6191-1-010 - [id number] Implanted:Qty: 1 on 06/07/2023 by Sebastian Pratt MD at [facility] Right: Knee [employer] 06/17/2025 6191-1-010 / / [id number] [employer] Simplex P Radiopaque Full Dose Cement Bone Sterile 6191-1-010 - [id number] Implanted:Qty: 1 on 06/07/2023 by Sebastian Pratt MD at [facility] Right: Knee [employer] 06/17/2025 6191-1-010 / / [id number] [employer] Baseplate Tibial Knee Cemented Right Fixed Stemmed Persona Size E Tivanium [id number] - [id number] Implanted:Qty: 1 on 06/07/2023 by Sebastian Pratt MD at [facility] Right: Knee [employer] [id number] 03/20/2033 [id number] / / [id number] [employer] Persona Cemented Posterior Stabilize Knee Right 6 Standard [id number] - [id number] Implanted:Qty: 1 on 06/07/2023 by Sebastian Pratt MD at [facility] Right: Knee [employer] [id number] 01/22/2032 [id number] / / [id number] [employer] Persona 32mm Knee Component Patellar All Poly Latex Free [id number] - [id number] Implanted:Qty: 1 on 06/07/2023 by Sebastian Pratt MD at [facility] Right: Knee [employer] [id number] 01/08/2028 [id number] / / [id number] [employer] Insert Tibial Knee Vitamin E Fixed Rt Persona Vivacit E 16mm Size 6 9 E F Polyethylene [id number] - [id number] Implanted:Qty: 1 on 06/07/2023 by Sebastian Pratt MD at [facility] Right: Knee [employer] [id number] 11/30/2026 [id number] / / [id number] Procedures Procedure Name Priority Date/Time Associated Diagnosis Comments XR KNEE LEFT 3 VIEWS Schedule Routine, Read Routine (OP Routine) 06/08/2024 12:11 PM CDT Chronic pain of left knee XR KNEE RIGHT 3 VIEWS Schedule Routine, Read Routine (OP Routine) 06/08/2024 11:52 AM CDT Chronic pain of right knee SCREENING MAMMOGRAM BILATERAL W MAURICIO Schedule Routine, Read Routine (OP Routine) 01/02/2024 1:16 PM PHYSICS TUTOR Screening mammogram, encounter for HEPATITIS PANEL, ACUTE Routine 06/08/2023 5:21 AM CDT DEXA AXIAL SKELETON BONE DENSITY 1 OR MORE SITES Schedule Routine, Read Routine (OP Routine) 02/20/2018 2:01 PM PHYSICS TUTOR Malignant neoplasm of axillary tail of left [...] dislocation or tumor. There is evidence of hxiz-ok-hams degenerative changes of the lateral compartment as well as evidence of advanced degenerative changes patellofemoral joint compartment IMPRESSION: 1. Evidence of advanced degenerative changes about the left knee with progression of fpzj-ct-kwee degenerative changes of the lateral compartment THIS IS AN ELECTRONICALLY VERIFIED FINAL REPORT 06/08/2024 12:45 PM - Electronically signed by Sebastian Pratt T: Report ID: [id number] Reading Location: [place] [address] Procedure Note Sebastian Pratt MD - 06/08/2024 EXAM DESCRIPTION: XR KNEE LEFT 3 VIEWS REASON FOR STUDY: pain COMPARISON: Left knee radiographs September 2021 FINDINGS: There is no evidence of fracture, dislocation or tumor. There is evidenceof gpiv-vp-tsqz degenerative changes of the lateral compartment as well as evidence of advanced degenerative changes patellofemoral joint compartment IMPRESSION: 1. Evidence of advanced degenerative changes about the leftknee with progression of wjbq-or-aaer degenerative changes of the lateral compartment THIS IS AN ELECTRONICALLY VERIFIED FINAL REPORT 06/08/2024 12:45 PM - Electronically signed by Sebastian Pratt T: Report ID: [id number] Reading Location: [place] [address] Sebastian Pratt MD IMG XR PROCEDURES Final [...] signed by Sebastian Pratt T: Report ID: [id number] Reading Location: [place] [address] Procedure Note Sebastian Pratt MD - 06/08/2024 [...] signed by Sebastian Pratt T: Report ID: [id number] Reading Location: [place] [address] Sebastian Pratt MD IMG XR PROCEDURES Final Result * Screening Mammogram Bilateral W Mauricio (01/02/2024 1:16 PM PHYSICS TUTOR) Anatomical Region Laterality Modality Breast Bilateral Mammography Impressions 01/02/2024 1:37 PM PHYSICS TUTOR BI-RADS ATLAS category (overall): 1 - Negative There is no mammographic evidence of malignancy. A 1 year screening mammogram is recommended. The patient has been or will be contacted. We recommend annual screening mammography for women at average risk of breast cancer beginning at age 40, based on guidelines of the [place] [employer] (ACR Practice Parameter for the Performance of Screening and Diagnostic Mammography) and [place] [employer]. For women with and elevated risk of breast cancer, please refer to the ACR Practice Parameter for specific screening recommendations. The patient will be entered into a reminder system with a target due date of 1 year for her next screening exam. Narrative 01/02/2024 1:37 PM PHYSICS TUTOR Screening Mammogram Bilateral W Amuricio: 01/02/24 The study was acquired using full [...] 19. Hep B core IgM Nonreactive Nonreactive [facility] Comment: Interpretive Data If HepB Core IgM Ab is reported as Equivocal, a new sample should be drawn in two weeks for testing. Current interpretive data was last revised on 19. Hep C Ab Nonreactive Nonreactive [facility] Comment: Antibodies to HCV not [...] last revised on 2019. HepBsAg Nonreactive Nonreactive [facility] Blood 06/08/2023 5:21 AM CDT 06/08/2023 5:51 AM CDT us Avelina Mckeon NP LAB MICROBIOLOGY - GENERAL O RDERABLES Final Result [facility] [address] [facility] Department [place] [address] * Dexa Axial Skeleton Bone Density 1 or 2 Site (02/20/2018 2:01 PM PHYSICS TUTOR) Anatomical Region Laterality Modality Body N/A Radiographic Dominique ging Narrative 02/21/2018 12:37 PM PHYSICS TUTOR Patient Name: Estrella Rhoades Date of : 1950 Date of scan: 02/20/2018 Bone mineral density was performed on a [employer] Discovery Densitometer. Machine Cross-calibration and Precision studies [...] and scan interpretation were performed by Jasper oRbins M.D. who is certified by the International Society of Clinical Densitometry. [id number] Rena Alexander MD [facility] DXA PROCEDURES F inal Result from Last 3 Months or Most Recently Relevant to Health Maintenance Insurance MEDICARE [facility]ICARE [facility] Advance Directives For more information, please contact: [phone] * Full Code (Latest Code Status on File) Date Activated Date Inactivated Comments 06/07/2023 4:24 PM 06/10/2023 8:10 PM Care Teams Clinic Coordinator Relationship Specialty Start Date End Date Elaina Gagnon PA [address] [place] [address] PCP - General Physician Oyster Worker 04/03/23 Rogelio Perkins MD Medical Oncologist/Hematologis t Medical Oncology 10/25/17 [place] MD [address] [place] [address] Referring Physician Surgery 10/25/17 Kyle Alejandro MD [address] [place] [address] Referring Physician Urology 10/25/17 Kelsey Royal MD PhD [address] [place] [address] Radiation Oncologist Radiation Oncology 01/02/18 Rena Alexander MD [address] [place] [address] Medical Oncologist/Hematologis t Medical Oncology 04/23/18 Gila Ibarra MD [address] [place], [place] [id number] Surgeon Surgical Oncology 04/23/18 Aravind Jones NP [address] [place] [address] Nurse Practitioner Nurse Practitioner 10/11/20 Anya Staton NP [address] [place] [address] Nurse Practitioner Medical Oncology 06/27/21 Gustavo Toscano MD [facility] [address] [place] [address] Referring Physician Cardiovascular Disease 05/24/23
--- OUTSIDE RECORDS SUMMARY | 2024-07-17 01:21 | XMS_ITS | Data Portability ---
Author Organization [facility], [facility] Address [address] [place] [address] Care Team Providers Care Digital Photographic Printer Name Role Phone JOYCE CORMIER Referring Provider Assessment No assessment recorded. Plan of Treatment Reminders Order Date Submit Date Provider Last Modified By Organization Details Last Modified Time Details Appointments None recorded. Lab None recorded. Referral None recorded. Procedures None recorded. Surgeries None recorded. Imaging None recorded. Medication Orders Bactrim DS 800 mg-160 mg tablet 021 021 [id number], [address] [place], [address], 11:30:09 Patient TargetsNo targets recorded. Patient InstructionsNo instructions recorded. Reason for Referral None Reported. Results Created Date Observation Date Name Description Value Unit Range Abnormal Flag Note LastModifiedBy Organization Detail LastModifiedTime 01/03/20 21 01/02/2021 CBC WITH DIFF WBC 7.8 x10'3 /uL 4.5-11 .0 Not Available [facility] (Lab) [place], [address], 01/02/2021 12:28:51 01/03/20 21 01/02/2021 CBC WITH DIFF RBC 4.86 x10'6 /uL 4.20-5 .40 Not Available [facility] ([place]) [place], [address], 01/02/2021 12:28:51 01/03/20 21 01/02/2021 CBC WITH DIFF hemoglobin 13.1 g/dL 12.0-1 6.0 Not Available [facility] (Lab) [address] [place], [address], 01/02/2021 12:28:51 01/03/20 21 01/02/2021 CBC WITH DIFF hematocrit 41.8 % 38.0-4 8.0 Not Available [facility] (Lab) [address] [facility], [place], [address], 01/02/2021 12:28:51 01/03/20 21 01/02/2021 CBC WITH DIFF MCV 86.0 fL 81.0-9 9.0 Not Available [facility] (Lab) [address] [place], [address], 01/02/2021 12:28:51 01/03/20 21 01/02/2021 CBC WITH DIFF MCH 27.0 pg 27.0-3 1.0 Not Available [facility] (Lab) [address] [place], [address], 01/02/2021 12:28:51 01/03/20 21 01/02/2021 CBC WITH DIFF MCHC 31.3 g/dL 32.0-3 6.0 low Not Available [facility] (Lab) [address] [facility], [place], [address], 01/02/2021 12:28:51 01/03/20 21 01/02/2021 CBC WITH DIFF RDW 16.0 % 11.5-1 4.5 high Not Available [facility] (Lab) [address] [place], [address], 01/02/2021 12:28:51 01/03/20 21 01/02/2021 CBC WITH DIFF platelet count 281 x10'3 /uL 130-40 0 Not Available [facility] (Lab) [address] [place], [address], 01/02/2021 12:28:51 01/03/20 21 01/02/2021 CBC WITH DIFF MPV 10.3 fL 9.3-12 .2 Not Available [facility] (Lab) [address], [place], [address], 01/02/2021 12:28:51 01/03/20 21 01/02/2021 CBC WITH DIFF diff type AUTOMA EDWINA DIFFER ENTIAL Not Available [facility] (Lab) [address], [place], [address], 01/02/2021 12:28:51 01/03/20 21 01/02/2021 CBC WITH DIFF neutrophils 72.1 % Not Available [facility] (Lab) [address], [place], [address], 01/02/2021 12:28:51 01/03/20 21 01/02/2021 CBC WITH DIFF lymphocytes 17.4 % Not Available [facility] (Lab) [address], [place], [address], 01/02/2021 12:28:51 01/03/20 21 01/02/2021 CBC WITH DIFF monocytes 8.9 % Not Available [facility] (Lab) [address], [place], [address], 01/02/2021 12:28:51 01/03/20 21 01/02/2021 CBC WITH DIFF eosinophils 0.6 % Not Available [facility] (Lab) [address], [place], [address], 01/02/2021 12:28:51 01/03/20 21 01/02/2021 CBC WITH DIFF basophils 0.5 % Not Available [facility] (Lab) [address] [place], [address], 01/02/2021 12:28:51 01/03/20 21 01/02/2021 CBC WITH DIFF immature granulocytes 0.5 % Not Available [facility] (Lab) [address] [facility], [place], [address], 01/02/2021 12:28:51 01/03/20 21 01/02/2021 CBC WITH DIFF abs. neutrophils 5.64 x10'3 /uL 1.80-7 .70 Not Available [facility] (Lab) [address] [place], [address], 01/02/2021 12:28:51 01/03/20 21 01/02/2021 CBC WITH DIFF abs. lymphocytes 1.36 x10'3 /uL 1.00-4 .80 Not Available [facility] (Lab) [address] [place], [address], 01/02/2021 12:28:51 01/03/20 21 01/02/2021 CBC WITH DIFF abs. monocytes 0.70 x10'3 /uL 0.24-0 .86 Not Available [facility] (Lab) [address] [facility], [place], [address], 01/02/2021 12:28:51 01/03/20 21 01/02/2021 CBC WITH DIFF abs. eosinophils 0.05 x10'3 /uL 0.04-0 .36 Not Available [facility] (Lab) [address] [place], [address], 01/02/2021 12:28:51 01/03/20 21 01/02/2021 CBC WITH DIFF abs. basophils 0.04 x10'3 /uL 0.01-0 .08 Not Available [facility] (Lab) [address] [place], [address], 01/02/2021 12:28:51 01/03/20 21 01/02/2021 CBC WITH DIFF abs. immature grans 0.04 x10'3 /uL 0.00-0 .49 Not Available [facility] (Lab) [address] [facility], [place], [address], 01/02/2021 12:28:51 01/03/2001/02/2021 TYPE AND SCREE N ABO/Rh(D) O POSITI VE Not Available [facility] (Lab) [address] [place], [address], 01/05/2021 08:52:05 01/03/2001/02/2021 TYPE AND SCREE N antibody screen NEGATI VE Not Available [facility] (Lab) [address] [facility], [place], [address], 01/05/2021 08:52:05 01/03/2001/05/2021 TYPE AND SCREE N xm expiration 2020,2 359 Not Available [facility] (Lab) [address] [facility], [place], [address], 01/05/2021 08:52:05 01/03/2001/05/2021 TYPE AND SCREE N comment NO HISTOR Y OF TRANSF USIONS ,PREGN MIC OR ANTIBO DIES, NEW SPECIM EN NOT NEEDED Not Available [facility] (Lab) [address] [facility], [place], [address], 01/05/2021 08:52:05 Result Notes None recorded. Problems Name Problem SNOMED Code Status Onset Date Resolution Date Notes Provider Name and Address Organization Details Recorded Time Procedure Active 2020 Encounter for other preprocedu ral examinatio n; Progress: Stable Added By: Gila Iverson Add to Current Problems: YES ProblemSta tus: Current Not Available [facility] 19:23:53 Incomplet e uterovagi nal prolapse 093413618 Active 2020 Incomplete uterovagin al prolapse; Progress: Stable Added By: Nat Garcia Add to Current Problems: YES ProblemSta tus: Current Not Available [facility] 19:24:13 Problem Notes None recorded. Procedures Surgical History Date Name Laterality Status Provider Name and Address Organization Details Recorded Time 01/06/20 21 laparoscopic supracervical hysterectomy completed Nat Garcia MD [address] [place] [address], [address], [facility] [employer] [facility] 01/16/2021 16:33:22 appendectomy completed Nat Garcia MD [address] [place] [address], [address], [facility] [employer] [facility] 01/16/2021 16:36:17 extraction of cataract completed Nat Garcia MD [address] [place] [address], [address], [facility] 01/16/2021 16:36:29 lumpectomy of breast completed Nat Garcia MD [address] [place] [address], [address], [facility] 01/16/2021 16:36:51 total nephrectomy completed Nat Garcia MD [address] [place] [address], [address], [facility] 01/16/2021 16:39:46 partial lobectomy of lung completed Nat Garcia MD [address] [place] [address], [address], [facility] [facility] 01/16/2021 16:40:22 Imaging Results None recorded. Procedure Notes None recorded. Medical Equipment None Reported. Allergies Allergen ID Allergen Name Allergen Category Reaction Reaction Severity Criticality Documentation Date Start Date Code Code System Note Provider Name and Address Organization Details Recorded Time 258786 adhesive tape environme nt,medica tion Not available Not available Not available 05/03/20212020 11063 UNK Sever ity: Moder ate; Not Available [facility] 2 11:48:53 843502 chlorhexi dine medicatio n Not available Not available Not available 05/03/20212020 2358 RxNorm Sever ity: Moder ate; Not Available [facility] 2 11:48:53 Medications Name Sig Start Date [...] amLODIPin e 5 mg oral tablet RxNorm: 099624 Refill Denied: No Refill DateOccur red: Edited by: Gila Nolasco ) on Stopped by: Gila Nolasco ) on Not Available Not Available Not Available Vitamin C 1,000 mg tablet active Vitamin C 1,000 mg oral tablet RxNorm: 013955 Refill Denied: No Refill DateOccur red: 1 [...] mg calcium (1,500 mg) oral tablet RxNorm: 240631 Refill Denied: No Refill DateOccur red: Edited [...] mg Intraveno us Solution, Reconstit uted RxNorm: 6013189 Refill Denied: No Refill DateOccur red: Edited [...] phen 650 mg/20.3 mL oral Solution RxNorm: 780901 Refill Denied: No Refill DateOccur red: 1 [...] Updated DateTime 1 162.56 cm 28 kg/m2 72882.2 7 g 97.2 [degF] 124 mm[Hg] 72 mm[Hg] Gila Iverson [facility] 1 11:08:08 Social History Question Answer Notes LastModified by Organizat ion Details LastModified Time Tobacco Smoking Status Former Smoker Nat Garcia MD [address] [place], [address], [facility] 01/16/2021 16:38:33 How Many Children Do You Have? 2 [email or web address] Information not available 01/17/2021 What Is Your Relationship Status? [email or web address] Information not available 01/16/2021 Are You Sexually Active? No [email or web address] Information not available 01/17/2021 Sex: Unknown Functional Status Question Answer Note LastModified by Organizat ion Details LastModified Time How many times per week do you consume alcohol? 1-2 times per week [email or web address] Information not available 01/17/2021 Do you use any illicit or recreational drugs? No [email or web address] Information not available 01/17/2021 What is your level of alcohol consumption? Occasional Information not available 01/17/2021 Mental Status None [...] SNOMED-CT Code Diagnosis ICD10 Code Diagnosis Note [id number] Nat Garcia MD [facility] [address] [place] [address] 01/17/2021 10:49:18 01/19/2021 11:40:40 Postoperative visit [id number] Z09 possible hematoma. Prophylact ic bactrim started. [...] Name 11/02/2021 1 [place] Dorcas Becerra [id number] Dorcas Becerra 01/06/2021 1 [place] Dorcas Becerra [id number] Dorcas Becerra 11/02/2021 2 [place] 104 Dorcas Becerra [id number] Dorcas Becerra Notes Date Note Type Note Provider Name and Address Organization Details Recorded Time 01/17/2021 text/html Post-OpReported bypatient.Onset/ Timing:date of surgery: (01/05/2021); [facility] Quality:procedur e: ([employer] LASHELL/BSO Robotic sacrocolpopexy/ cysto) Associated Symptoms:incisio n healing well; normal appetite; normal bowel function; no constipation; no nausea; no emesis; pain improving; no fever; no bleeding; no lower extremity edema/pain; no dysuria/urinary symptoms;fatigue Nat Garcia MD [address] [facility], [place], [address], [facility] [employer] 01/17/2021 11:33:13 OBGyn Episode No OBEpisode recorded.
--- OUTSIDE RECORDS SUMMARY | 2024-07-17 01:22 | XMS_ITS | Encounter Summary ---
Author Organization [facility] Address [address] [place] [address] Phone Care Team Providers Care Nuclear Control Room Operator Name Role Phone Sebastian Blankenship MD Primary Care Provider + Sebastian Blankenship MD Primary Care Provider + Sebastian Blankenship MD Primary Care Provider + Kamaljit Byrd MD Primary Care Provider + [phone] Kamaljit Byrd MD Primary Care Provider + [phone] Kamaljit Byrd MD Unavailable [phone] Rogelio Perkins MD Unavailable [phone] [place] MD Unavailable [phone] Kyle Alejandro MD Unavailable [phone] Kelsey Royal MD PhD Unavailable [phone] Rena Alexander MD Unavailable + [phone] Gila Ibarra MD Unavailable [phone] Aravind Jones CLASSROOM TEACHER Unavailable [phone] Anya Staton NP Unavailable [phone] Elaina Gagnon Primary Care Provider + Elaina Gagnon Primary Care Provider + Gustavo Toscano MD Unavailable Encounter Details Date Type Department Care Team (Late st Contact Info) Description 10/22/2017 Telephone [facility] ([facility]) - [facility] Urology [address] [facility] 11th [place] [address] [place] [address] Angelica Yousif Social History Tobacco Use Types Packs/Day Years Used Date Smoking Tobacco: Never Assessed Comments Unknown Sex and Gender Information Value Date Recorded Sex Assigned at Not on file Legal Sex Female 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 Gender Identity Female 11/03/2019 11:06 AM CDT Sexual Orientation Straight 11/03/2019 11 :06 AM CDT documented as of this encounter Plan of Treatment Upcoming Encounters Date Type Department Care Team (Latest Contact Info) Description 08/07/2024 1:10 PM CDT Hospital Encounter [facility] [place] [address] [place] [address] Sebastian Pratt MD [address] [place] [address] DR [address]GG[address] [place] [address] 08/07/2024 1:10 PM CDT - 08/07/2024 3:30 PM CDT Surgery [facility] OR [address] [place] [address] Sebastian Pratt MD [address] [place] [address] DR [address]GG[address] [place] [address] LEFT TOTAL KNEE ARTHROPLASTY Scheduled Procedures Name Priority Associated Diagnoses Date/Ti me ARTHROPLASTY TOTAL KNEE Primary osteoarthritis of left knee 08/07/2024 1:10 PM CDT documented as of this encounter Visit Diagnoses Not on filedocumented in this encounter Care Teams Nuclear Control Room Operator Relationship Specialty Start Date End Date Sebastian Blankenship MD PCP - General 05/18/16 10/24/17 Sebastian Blankenship MD PCP - General Family Medicine 10/25/17 12/01/17 Sebastian Blankenship MD PCP - General 12/02/17 05/05/18 Kamaljit Byrd MD [address] [place] [address] PCP - General 05/06/18 03/07/20 Kamaljit Byrd MD [address] [place] [address] PCP - General 03/08/20 01/14/23 Elaina Gagnon PA [address] [place] [address] PCP - General Physician Computer Equipment Repairer 01/15/23 04/02/23 Elaina Gagnon PA [address] [place] [address] PCP - General Physician Computer Equipment Repairer 04/03/23 Kamaljit Byrd MD [address] [place] [address] 03/08/20 06/26/21 Rogelio Perkins MD [address] [place] [address] Medical Oncologist/Hematologis t Medical Oncology 10/25/17 North Pemberton MD [address] [place] [address] Referring Physician Surgery 10/25/17 Kyle Alejandro MD [address] [place] [address] Referring Physician Urology 10/25/17 Kelsey Royal MD PhD [address] [place] [address] Radiation Oncologist Radiation Oncology 01/02/18 Rena Alexander MD [address] [place], [place] [id number] Medical Oncologist/Hematologis t Medical Oncology 04/23/18 Gila Ibarra MD [address] [place] [address] Surgeon Surgical Oncology 04/23/18 Aravind Jones NP [address] [place] [address] Nurse Practitioner Nurse Practitioner 10/11/20 Anya Staton NP [address] [place] [address] Nurse Practitioner Medical Oncology 06/27/21 Gustavo Toscano MD [address] [place] [address] Referring Physician Cardiovascular Disease 05/24/23 documented as of this encounter
--- OUTSIDE RECORDS SUMMARY | 2024-07-17 01:22 | XMS_ITS ---
Author Organization [facility] Address [address] [facility] [place] [address] Care Team Providers Care Select Banker Name Role Phone Rogelio Perkins MD Unavailable [phone] Norht Pemberton MD Unavailable [phone] Kyle Alejandro MD Unavailable [phone] Kelsey Royal MD PhD Unavailable [phone] Rena Alexander MD Unavailable [phone] Gila Ibarra MD Unavailable [phone] Aravind Jones EMISSION TECHNICIAN Unavailable [phone] Anya Staton NP Unavailable [phone] Elaina Gagnon Primary Care Provider + Gustavo [...] prolapse 11/28/2020 History of colon polyps 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 08/2018 Bone disorder 04/24/2018 Encounter for follow-up exam ination after completed treatment for malignant neoplasm 04/23/2018 Seborrheic dermatitis 04/23/2018 History of breast cancer 04/20/2018 Personal history of irradiation 04/20/2018 Essential (primary) hypertension 12/01/2017 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, estrogen receptor positive 10/09/2017 Cancer Staging:Pathologic:Stage IIIA(pT4b, pN0, cM0, G2, ER: Positive, MI: Positive, HER2: Negative) - Signed by Kelsey Royal MD PhD on 01/02/2018 Clinical:Stage IIIB(cT4b, cN0, cM0, G2, ER+, MI+, HER2-) - Signed by Kelsey Royal MD [...] 02/18/2014 023 Overview (10/31/2022): s/p nephrectomy at [facility], 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
--- OUTSIDE RECORDS SUMMARY | 2024-07-17 01:22 | XMS_ITS | Clinical Summary ---
Author Organization [facility] Address [address] [address] [facility] [place] [address] Care Team Providers Care Habilitative Interventionist Name Role Phone Rogelio Perkins MD Unavailable [phone] [place] MD Unavailable [phone] Kyle Alejandro MD Unavailable [phone] Kelsey Royal MD PhD Unavailable [phone] Rena Alexander MD Unavailable [phone] Gila Ibarra MD Unavailable [phone] Aravind Jones SPECIAL SKILLS OFFICER Unavailable Anya Staton NP Unavailable [phone] Elaina Gagnon Primary Care Provider + Gustavo [...] (eight) hours as needed for pain Active kc-2-fet-epa-fi sh oil-vit D3 [phone] ua-kc-uf-unit capsule Take 1 capsule by mouth nightly Juan Diego Green brand name (from Home Inventory S[pecialists) Active yb-sv-lebv-FA-C a carb-vit K (WOMEN'S MULTIVITAMIN) 18 mg-400 [...] for 14 days 28 tablet 4 Active HYDROcodone-gnea taminophen (NORCO) 7.5-325 mg per tabletIndicatio ns:Pain [...] prolapse 11/28/2020 History of colon polyps 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 08/2018 Bone disorder 04/24/2018 Encounter for follow-up exam ination after completed treatment for malignant neoplasm 04/23/2018 Seborrheic dermatitis 04/23/2018 History of breast cancer 04/20/2018 Personal history of irradiation 04/20/2018 Essential (primary) hypertension 12/01/2017 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, estrogen receptor positive 10/09/2017 Cancer Staging:Pathologic:Stage IIIA(pT4b, pN0, cM0, G2, ER: Positive, NV: Positive, HER2: Negative) - Signed by Kelsey Royal MD PhD on 01/02/2018 Clinical:Stage IIIB(cT4b, cN0, cM0, G2, ER+, NV+, HER2-) - Signed by Kelsey Royal MD [...] 02/18/2014 023 Overview (10/31/2022): s/p nephrectomy at [place] to lung s/p resection Last Assessment & Plan: There fore cannot use NSAIDs Encounters Date Type Department Care Team Description 07/14/2024 Orders Only [facility] [address] [place] [address] [address] [place] [address] Sebastian Pratt MD Chronic pain of left knee (Primary Dx) 06/30/2024 Telephone [facility] [address] [place] [address] [address] [place] [address] Sebastian Pratt MD surgery 06/08/2024 12:03 PM CDT - 06/08/2024 11:59 PM CDT Hospital Encounter [facility] Di[facility] Imaging [address] [place] [address] Chronic pain of left knee Discharge Disposition: Discharge to home or self care 06/08/2024 11:45 AM CDT - 06/08/2024 11:59 PM CDT Hospital Encounter [facility] Di[facility] Imaging [address] [place] [address] Chronic pain of right knee Discharge Disposition: Discharge to home or self care 06/08/2024 11:45 AM CDT Office Visit [facility] Orthopedics and Sports Medicine [address] [place] [address] [address] [place] [address] Sebastian Pratt MD Chronic pain of right [...] 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 History of COVID-19 2021; [...] Skin problems Daughter Viviane Allen Diabetes Father Tebbetts Halluin Heart attack Father Tebbetts Halluin Cancer Father's Brother Nicho Colby unknown t ype Transient ischemic attack Mother Anesthesia problems Neg Hx Relation Name Status Comments Cousin Daughter Viviane Allen Father Tebbetts Halluin Father's Brother Nicho Colby Mother Social History Tobacco Use Types Packs/Day Years Used Date Smoking Tobacco: Former Cigarettes 0.8 20 0 02/18/1966 - 02/18/1986 Smokeless Tobacco: Never Tobacco Cessation:Counseling Given: Not Answered Alcohol Use Standard Drinks/Week Comments Yes 2 (1 standard drink = 0.6 oz pur e alcohol) [facility] Utilities Answer Date Recorded In the past 12 months has [employer] gas, oil, or water [employer] threatened to shut off services in your [...] often do you attend chur ch or christianity services? More than 4 times per year 06/10/2023 Do you belong to any clubs o r organizations such as mormonism groups, unions, fraternal or athletic groups, or [...] place to sleep or slept in a group home (including now)? No 06/10/2023 Personal Safety Answer Date Recorded Have you ever been in or are you currently in a harmful physical or emotional relationship or is someone making you feel afraid or unsafe? Denies 06/07/2023 Comments No Sex and Gender Information Value Date Recorded Sex Assigned at Not on file Legal Sex Female 7:51 AM BUILDING MAINTENANCE CUSTODIAN Gender Identity Female 11/03/2019 11:06 AM CDT Sexual Orientation Straight 11/03/2019 11 :06 AM CDT Obstetrics History Para Term AB IAB SAB Ectopic Multiple Livin g Live Births 2 Date Outcome GA Total Labor Labor/2nd/3rd Weight Sex Type Anes PTL Shanice A1 A5 Name Clin Last Filed Vital Signs Vital Sign Reading Time Taken Comments Blood Pressure 139/74 12/31/2023 1:18 PM BUILDING MAINTENANCE CUSTODIAN Pulse 65 12/31/2023 1:18 PM BUILDING MAINTENANCE CUSTODIAN Temperature 36.4 C (97.5 F) 12/31/2023 1:18 PM BUILDING MAINTENANCE CUSTODIAN Respiratory Rate 16 12/31/2023 1:18 PM BUILDING MAINTENANCE CUSTODIAN Oxygen Saturation 98% 12/31/2023 1:18 PM BUILDING MAINTENANCE CUSTODIAN Inhaled Oxygen Concentration - - Weight 70 kg (154 lb 6.4 oz) 12/31/2023 1:18 PM BUILDING MAINTENANCE CUSTODIAN Height 162.6 cm (5' 4) 06/07/2023 4:14 PM CDT Body Mass Index 26.5 06/07/2023 4:14 PM CDT Plan of Treatment Upcoming Encounters Date Type Department Care Team (Latest Contact Info) Description 08/07/2024 1:10 PM CDT Hospital Encounter [facility] OR [address] [place] [address] Sebastian Pratt MD [address] [place] [address] [place] [address] 08/07/2024 1:10 PM CDT - 08/07/2024 3:30 PM CDT Surgery [facility] Main OR [address] [place] [address] Sebastian Pratt MD [address] [facility] [address] [address] LEFT TOTAL KNEE ARTHROPLASTY Scheduled Procedures Name Priority Associated Diagnoses Date/Ti me ARTHROPLASTY TOTAL KNEE Primary osteoarthritis of left knee 08/07/2024 1:10 PM CDT Health Maintenance Due Date Last Done Comments [...] history exists Medical Devices Implanted Type Area Founder And Chief Technical Officer Device Identifier Shelf Expiration Date Model / Serial / Lot [employer] Simplex P Radiopaque Full Dose Cement Bone Sterile 6191-1-010 - [id number] Implanted:Qty: 1 on 06/07/2023 by Sebastian Pratt MD at [facility] Right: Knee [employer] 06/17/2025 6191-1-010 / / [id number] [employer] Simplex P Radiopaque Full Dose Cement Bone Sterile 6191-1-010 - [id number] Implanted:Qty: 1 on 06/07/2023 by Sebastian Pratt MD at [facility] Right: Knee [employer] 06/17/2025 6191-1-010 / / [id number] [employer] Baseplate Tibial Knee Cemented Right Fixed Stemmed Persona Size E Tivanium [id number] - [id number] Implanted:Qty: 1 on 06/07/2023 by Sebastian Pratt MD at [facility] Right: Knee [employer] [id number] 03/20/2033 [id number] / / [id number] [employer] Persona Cemented Posterior Stabilize Knee Right 6 Standard [id number] - [id number] Implanted:Qty: 1 on 06/07/2023 by Sebastian Pratt MD at [facility] Right: Knee [employer] [id number] 01/22/2032 [id number] / / [id number] [employer] Persona 32mm Knee Component Patellar All Poly Latex Free 10-6975-838-32 - [id number] Implanted:Qty: 1 on 06/07/2023 by Sebastian Pratt MD at [facility] Right: Knee [employer] [id number] 01/08/2028 [id number] / / [id number] [employer] Insert Tibial Knee Vitamin E Fixed Rt Persona Vivacit E 16mm Size 6 9 E F Polyethylene [id number] - [id number] Implanted:Qty: 1 on 06/07/2023 by Sebastian Pratt MD at [facility] Right: Knee [employer] [id number] 11/30/2026 [id number] / / [id number] Procedures Procedure Name Priority Date/Time Associated Diagnosis Comments XR KNEE LEFT 3 VIEWS Schedule Routine, Read Routine (OP Routine) 06/08/2024 12:11 PM CDT Chronic pain of left knee XR KNEE RIGHT 3 VIEWS Schedule Routine, Read Routine (OP Routine) 06/08/2024 11:52 AM CDT Chronic pain of right knee SCREENING MAMMOGRAM BILATERAL W MAURICIO Schedule Routine, Read Routine (OP Routine) 01/02/2024 1:16 PM BUILDING MAINTENANCE CUSTODIAN Screening mammogram, encounter for HEPATITIS PANEL, ACUTE Routine 06/08/2023 5:21 AM CDT DEXA AXIAL SKELETON BONE DENSITY 1 OR MORE SITES Schedule Routine, Read Routine (OP Routine) 02/20/2018 2:01 PM BUILDING MAINTENANCE CUSTODIAN Malignant neoplasm of axillary tail of left [...] dislocation or tumor. There is evidence of xddj-yl-hboc degenerative changes of the lateral compartment as well as evidence of advanced degenerative changes patellofemoral joint compartment IMPRESSION: 1. Evidence of advanced degenerative changes about the left knee with progression of ihia-hj-wlan degenerative changes of the lateral compartment THIS IS AN ELECTRONICALLY VERIFIED FINAL REPORT 06/08/2024 12:45 PM - Electronically signed by Sebastian Pratt T: Report ID: [id number] Reading Location: [place] [address] Procedure Note Sebastian Pratt MD - 06/08/2024 EXAM DESCRIPTION: XR KNEE LEFT 3 VIEWS REASON FOR STUDY: pain COMPARISON: Left knee radiographs September 2021 FINDINGS: There is no evidence of fracture, dislocation or tumor. There is evidenceof crlb-it-qkky degenerative changes of the lateral compartment as well as evidence of advanced degenerative changes patellofemoral joint compartment IMPRESSION: 1. Evidence of advanced degenerative changes about the leftknee with progression of aygg-sr-embu degenerative changes of the lateral compartment THIS IS AN ELECTRONICALLY VERIFIED FINAL REPORT 06/08/2024 12:45 PM - Electronically signed by Sebastian Pratt T: Report ID: [id number] Reading Location: [place] [address] Sebastian Pratt MD IMG XR PROCEDURES Final [...] signed by Sebastian Pratt T: Report ID: [id number] Reading Location: [place] [address] Procedure Note Sebastian Pratt MD - 06/08/2024 [...] signed by Sebastian Pratt T: Report ID: [id number] Reading Location: [place] [address] Sebastian Pratt MD IMG XR PROCEDURES Final Result * Screening Mammogram Bilateral W Mauricio (01/02/2024 1:16 PM BUILDING MAINTENANCE CUSTODIAN) Anatomical Region Laterality Modality Breast Bilateral Mammography Impressions 01/02/2024 1:37 PM BUILDING MAINTENANCE CUSTODIAN BI-RADS ATLAS category (overall): 1 - Negative There is no mammographic evidence of malignancy. A 1 year screening mammogram is recommended. The patient has been or will be contacted. We recommend annual screening mammography for women at average risk of breast cancer beginning at age 40, based on guidelines of the [employer] (ACR Practice Parameter for the Performance of Screening and Diagnostic Mammography) and [employer]. For women with and elevated risk of breast cancer, please refer to the ACR Practice Parameter for specific screening recommendations. The patient will be entered into a reminder system with a target due date of 1 year for her next screening exam. Narrative 01/02/2024 1:37 PM BUILDING MAINTENANCE CUSTODIAN Screening Mammogram Bilateral W Mauricio: 01/02/24 The [...] 19. Hep B core IgM Nonreactive Nonreactive [facility] Comment: Interpretive Data If HepB Core IgM Ab is reported as Equivocal, a new sample should be drawn in two weeks for testing. Current interpretive data was last revised on 19. Hep C Ab Nonreactive Nonreactive [facility] Comment: Antibodies to HCV not detected. Does [...] last revised on 2019. HepBsAg Nonreactive Nonreactive [facility] Blood 06/08/2023 5:21 AM CDT 06/08/2023 5:51 AM CDT us Avelina Mckeon NP LAB MICROBIOLOGY - GENERAL O RDERABLES Final Result [facility] Department [place] [address] * Dexa Axial Skeleton Bone Density 1 or 2 Site (02/20/2018 2:01 PM BUILDING MAINTENANCE CUSTODIAN) Anatomical Region Laterality Modality Body N/A Radiographic Dominique ging Narrative 02/21/2018 12:37 PM BUILDING MAINTENANCE CUSTODIAN Patient Name: Estrella Rhoades Date of : 1950 Date of scan: 02/20/2018 Bone mineral density was performed on a HoloSnapverse Discovery Densitometer. Machine Cross-calibration and Precision studies [...] density scan were prepared by Letha Oviedo (R)([facility]) who is accredited by the International Society of Clinical Densitometry. The overall patient assessment and scan interpretation were performed by Jasper Robins M.D. who is certified by the International Society of Clinical Densitometry. [id number] Rena Alexander MD IM DXA PROCEDURES F inal Result from Last 3 Months or Most Recently Relevant to Health Maintenance Insurance MEDICARE [facility] MEDICARE [facility] MEDICARE [facility] FEDERAL Member Subscriber Plan / Payer (Ef fective 2007-Present) Name:Estrella Rhoades Relation to Subscriber:Self Name:Estrella Rhoades Payer ID:[id number] (NAIC) Group ID:[id number] Type:[employer] Address: [facility] [id number] [place] [id number] Advance Directives For more information, please contact: [phone] * Full Code (Latest Code Status on File) Date Activated Date Inactivated Comments 06/07/2023 4:24 PM 06/10/2023 8:10 PM Care Teams Habilitative Interventionist Relationship Specialty Start Date End Date Elaina Gagnon PA [address] [place] [address] PCP - General Physician Mixer And Blender 04/03/23 Rogelio Perkins MD Medical Oncologist/Hematologis t Medical Oncology 10/25/17 [place] MD [address] [place] [address] Referring Physician Surgery 10/25/17 Kyle Alejandro MD [address] [place] [address] Referring Physician Urology 10/25/17 Kelsey Royal MD PhD [address] [place] [address] Radiation Oncologist Radiation Oncology 01/02/18 Rena Alexander MD [address] [facility] [address] [place] [address] Medical Oncologist/Hematologis t Medical Oncology 04/23/18 Gila Ibarra MD [address] [facility] [address] [place] [address] Surgeon Surgical Oncology 04/23/18 Aravind Jones NP [address] [place] [address] Nurse Practitioner Nurse Practitioner 10/11/20 Anya Staton NP [address] [place] [address] Nurse Practitioner Medical Oncology 06/27/21 Gustavo Toscano MD [address] [id number] Referring Physician Cardiovascular Disease 05/24/23
--- NOTE | 2024-07-17 07:29 | WPDHPUPDATE1 ---
History and Physical Update Update Date/Time: 07/17/24 07:29 History and Physical has been reviewed, including an updated exam of the patient. There are NO changes in the patient's condition. Risks, benefits, and alternatives have been discussed and questions answered. Patient agrees to proceed with procedure.
--- NOTE | 2024-07-17 08:15 | P.PNAN_ITS ---
Anes - Initial Pre Proc Eval Procedure: Operation Date: 07/17/24 10:30 Proposed Procedures p Cystoscopy, Injection Bulking Agent - Maged Parry MD Date/Time: 07/17/24 08:15 Surgeon: Maged Parry MD Pre Op Diagnosis: ID Patient Data Age: 74 Gender: F Height: 1.63 m Weight: 70 kg Allergies Allergy/AdvReac Type Severity Reaction Status Date / Time chlorhexidine Allergy Rash Verified 07/02/24 13:33 Home Medications ?Medication ?Instructions ?Recorded ?Confirmed ?Type [place] 3 Natural Fish Oil Conc 1 tab-cap PO DAILY 07/12/21 07/17/24 History acetaminophen 650 mg 1,300 mg PO Q12H PRN Pain 07/12/21 07/02/24 History tablet,extended release amlodipine 5 mg tablet 1 tablet PO QAM 07/12/21 07/17/24 History ascorbic acid (vitamin C) 1,000 mg 1 g PO DAILY 07/12/21 07/17/24 History tablet calcium 600 mg (as 1 tablet PO BID 07/12/21 07/17/24 History carbonate)-vitamin D3 5 mcg (200 unit) tablet cholecalciferol (vitamin D3) 25 25 mcg PO DAILY 07/12/21 07/17/24 History mcg (1,000 unit) tablet cyanocobalamin (vitamin B-12) 1,000 mcg PO DAILY 07/12/21 07/17/24 History 1,000 mcg capsule inositol 250 mg tablet 220 mg PO DAILY 07/12/21 07/17/24 History lisinopril 20 mg tablet 20 mg PO QAM 07/12/21 07/17/24 History multivitamin with minerals-folic 1 tablet PO DAILY 07/12/21 07/17/24 History acid 0.4 mg tablet omega-3 fatty acids 2,000 mg PO DAILY 07/12/21 07/17/24 History omeprazole 20 mg capsule,delayed 1 cap PO QAM 07/12/21 07/17/24 History release oxybutynin chloride 10 mg 10 mg PO QAM 07/12/21 07/17/24 History tablet,extended release 24 hr rosuvastatin 20 mg tablet 1 tablet PO HS 07/12/21 07/17/24 History Lactobacillus rhamnosus GG 10 1 cap PO DAILY 07/02/24 07/17/24 History billion cell-inulin 200 mg capsule ([facility] [employer]) aspirin 81 mg tablet,delayed 81 mg PO DAILY 07/02/24 07/17/24 History release docusate sodium 100 mg capsule 100 mg PO DAILY PRN constipation 07/02/24 07/02/24 History mirabegron 25 mg tablet,extended 25 mg PO DAILY 07/02/24 07/17/24 History release 24 hr prevagen 1 cap PO HS 07/02/24 07/17/24 History venlafaxine 75 mg capsule,extended 75 mg PO QAM 07/02/24 07/17/24 History release 24 hr Patient hx anesthesia problems: none Family hx anesthesia problems: none Results Review: All pre-operative results and documents have been reviewed as part of the pre- operative evaluation. [facility] Past Medical History Medical History (Updated 07/17/24 @ 08:15 by Román Munoz DO) MVP (mitral valve prolapse) Renal cancer Hyperlipidemia GERD (gastroesophageal reflux disease) Hypertension Breast CA Surgical History Surgical History (Updated 07/17/24 @ 08:15 by Román Munoz DO) History of hysterectomy History of cholecystectomy History of appendectomy Social History Social History Smoking packs per day: 1 Smoking cigarettes per day: 20.0 Years smoked: 19 Smoking pack-years: 19.00 Smoking status: Former smoker Tobacco type: cigarettes Smoking end date: 08/18/86 Alcohol intake: current Drinks per week: 3 Substance use: never Living arrangements: with family Additional living arrangements comments: HUSB Spiritual care concerns: No Anes - Eval Final PreProcedure Day of Procedure 07/17/24 08:15 Patient weight: overweight Heart: regular rate and rhythm Lungs: clear to auscultation Airway: Mallampati scale class II Neurological: alert and oriented Last oral intake: >/= 8 hours ASA classification: III Emergent: no Anesthetic plan: proceed Anesthesia type and monitoring: general GIVS and standard monitoring Results Review: All pre-operative results and documents have been reviewed as part of the pre- operative evaluation. Informed Consent: The patient's anesthetic plan and its attendant risks and benefits were discussed with the patient/family/POA. Questions were solicited and answers provided to the satisfaction of the patient/family/POA.
[2024-07-17 08:27] VITALS: BP 147/73; PULSE 62; RESP 20; TEMP 36.3; O2SAT 99
[2024-07-17] MEDS: LACTATED RINGERS 1,000 ML 30 ML IV CONT (09:30)
--- NOTE | 2024-07-17 09:42 | SUR.PREOP ---
0940-Dr. Jr lentz of culture result-will proceed.
--- NOTE | 2024-07-17 10:19 | PM.IMHP ---
H&P: HPI History of Present Illness Date/Time: 07/17/24 10:19 Chief Complaint: ISD Narrative: Note:?Dorcas Becerra is a 74-year-old female who presents for a follow-up visit for mixed urinary incontinence. She has a history of a robotic sacrocolpopexy in 2020, followed by a urethral sling in 2021, and a bulking agent procedure in the summer of 2021. She also has a component of urge urinary incontinence and is on oxybutynin. The patient reports that her bulking agent has worn off, and she is experiencing symptoms of stress urinary incontinence, such as leakage with coughing, sneezing, and movement. She also mentions frequency as part of her overactive bladder symptoms. The urgency is a significant issue for her, but the activity-related incontinence is more bothersome. The patient is interested in repeating the bulking agent procedure, which has worked for her in the past. She is also open to combination therapy with Myrbetriq to address her urge urinary incontinence and overactive bladder symptoms. Review of Systems Review of Systems: All systems reviewed & are unremarkable except as noted in HPI and below PMFSH Past Medical History Medical History MVP (mitral valve prolapse) Renal cancer Hyperlipidemia GERD (gastroesophageal reflux disease) Hypertension Breast CA Surgical History Surgical History History of hysterectomy History of cholecystectomy History of appendectomy Social History Social History Smoking packs per day: 1 Smoking cigarettes per day: 20.0 Years smoked: 19 Smoking pack-years: 19.00 Smoking status: Former smoker Tobacco type: cigarettes Smoking end date: 08/18/86 Alcohol intake: current Drinks per week: 3 Substance use: never Living arrangements: with family Additional living arrangements comments: [facility] Spiritual care concerns: No Meds Home Medications and Allergies Home Medications ?Medication ?Instructions ?Recorded ?Confirmed ?Type Esmond 3 Natural Fish Oil Conc 1 tab-cap PO DAILY 07/12/21 07/17/24 History acetaminophen 650 mg 1,300 mg PO Q12H PRN Pain 07/12/21 07/02/24 History tablet,extended release amlodipine 5 mg tablet 1 tablet PO QAM 07/12/21 07/17/24 History ascorbic acid (vitamin C) 1,000 mg 1 g PO DAILY 07/12/21 07/17/24 History tablet calcium 600 mg (as 1 tablet PO BID 07/12/21 07/17/24 History carbonate)-vitamin D3 5 mcg (200 unit) tablet cholecalciferol (vitamin D3) 25 25 mcg PO DAILY 07/12/21 07/17/24 History mcg (1,000 unit) tablet cyanocobalamin (vitamin B-12) 1,000 mcg PO DAILY 07/12/21 07/17/24 History 1,000 mcg capsule inositol 250 mg tablet 220 mg PO DAILY 07/12/21 07/17/24 History lisinopril 20 mg tablet 20 mg PO QAM 07/12/21 07/17/24 History multivitamin with minerals-folic 1 tablet PO DAILY 07/12/21 07/17/24 History acid 0.4 mg tablet omega-3 fatty acids 2,000 mg PO DAILY 07/12/21 07/17/24 History omeprazole 20 mg capsule,delayed 1 cap PO QAM 07/12/21 07/17/24 History release oxybutynin chloride 10 mg 10 mg PO QAM 07/12/21 07/17/24 History tablet,extended release 24 hr rosuvastatin 20 mg tablet 1 tablet PO HS 07/12/21 07/17/24 History Lactobacillus rhamnosus GG 10 1 cap PO DAILY 07/02/24 07/17/24 History billion cell-inulin 200 mg capsule ([facility]) aspirin 81 mg tablet,delayed 81 mg PO DAILY 07/02/24 07/17/24 History release docusate sodium 100 mg capsule 100 mg PO DAILY PRN constipation 07/02/24 07/02/24 History mirabegron 25 mg tablet,extended 25 mg PO DAILY 07/02/24 07/17/24 History release 24 hr prevagen 1 cap PO HS 07/02/24 07/17/24 History venlafaxine 75 mg capsule,extended 75 mg PO QAM 07/02/24 07/17/24 History release 24 hr Allergies Allergy/AdvReac Type Severity Reaction Status Date / Time chlorhexidine Allergy Rash Verified 07/02/24 13:33 Vital Signs Vital Signs - 24 hr 07/17/24 08:27 Temperature 97.3 F L Pulse Rate 62 Respiratory Rate 20 Blood Pressure 147/73 H Pulse Oximetry 99 Oxygen Delivery Room Air Exam Narrative: The physical exam findings are as follows: Note:? -General appearance: No acute distress -Building nutrition: Well-developed, well-nourished -Integumentary: Overall skin examination reveals no significant rashes -Head and neck: Head normocephalic atraumatic, trachea midline, extraocular movements intact, sclera normal, neck full range of motion -Chest and lung: Quiet and even respiratory effort without the use of accessory muscles of respiration, no cough or grunting -Breast: Breast exam not indicated -Cardiovascular: Lower extremity edema: trace, lower extremity varicosities: absent -Neurologic: General alert and oriented x3 -Musculoskeletal: Active movement of all 4 extremities -Lymphatic: No visible lymphadenopathy Assessment and Plan Assessment and plan (1) Intrinsic sphincter deficiency (ISD): Code(s): N36.42 - Intrinsic sphincter deficiency (ISD) Status: Acute Assessment and Plan: Note:?ASSESSMENT: - Mixed urinary incontinence - 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 She is most interested in the latter. - We discussed the alternatives, benefits, and risks. We discussed specifically the risks of bleeding, infection, failure to correct incontinence, injury to the urethra, obstructive voiding requiring catheterization, and de radha or worsening irritative voiding symptoms. She understands that the expected cure rate is between 65-75% and that the procedure will likely need to be repeated over time. We also discussed that treatment of intrinsic sphincter deficiency is unlikely to improve overactive bladder symptoms if present. - After an extensive discussion, she wishes to proceed with a bulking agent. - The patient presents with symptoms indicative of mixed urinary incontinence. The causes of both urge and stress incontinence were clarified to the patient. Urge incontinence results from an overactive bladder muscle, while stress incontinence stems from a weak urethral sphincter. - The patient is aware that these two forms of incontinence have distinct causes and require different treatment approaches. They recognize that addressing one type may not alleviate the other, and in some instances, a combination of therapies may be necessary. We are planning on combination medical therapy for urge urinary incontinence and a bulking agent for her stress urinary incontinence due to intrinsic sphincter deficiency
[2024-07-17] MEDS: ceFAZolin 2 GM/D5W 50 ML 2 GM/50 ML BAG IVPB (10:27)
[2024-07-17] MEDS: LIDOCAINE 2% GEL UROJET 10 ML PKG MUCOUS MEM (10:37)
[2024-07-17 10:46] VITALS: BP 108/73; PULSE 75; RESP 16; O2SAT 100
--- NOTE | 2024-07-17 10:55 | W.PM.PROC2 ---
Procedure Note - Detailed Date of Procedure 07/17/24 Pre-op Diagnosis Intrinsic sphincter deficiency Post-op Diagnosis Same Procedure Performed Cystoscopy with suburethral injection of implant material Surgeon Maged Parry MD Anesthesia MAC and Local (Uro jet) Indications A woman with recurrent intrinsic sphincter deficiency she has had a previous sling and previous bulking agent. She is here today for repeat bulking agent. Understands risks of bleeding, infection, need for repeat procedures, lack of efficacy, incomplete efficacy, urinary retention requiring catheterization. Agrees to proceed Description of Procedure She was correctly identified. Informed consent obtained. She was brought in operating room. She was given monitored anesthesia care. She was placed in dorsal lithotomy position. She was prepped draped sterile fashion. Time-out performed. I applied a Uro jet into the urethra. I performed cystoscopy. The bladder was examined was normal without tumors or stones foreign bodies or abnormalities. Urethra was open consistent with intrinsic sphincter deficiency. I saw no or minimal previous bulking agent effect. I chose a site in the mid urethra 2 cm distal to bladder neck. I injected bulking agent circumferentially. I used 2 syringes total. There was adequate bulking effect. Her bladder was left partially full. She was awakened transferred to PACU in stable condition. Estimated Blood Loss 0 Drains No Packing No Pathology None sent Complications No immediate complications Condition Stable Disposition PACU
[2024-07-17 11:15] VITALS: BP 126/77; PULSE 62; RESP 16
[2024-07-17 11:44] VITALS: BP 140/65; PULSE 61; RESP 16
== END 2024-07-17 11:55 | disposition home or self-care (01) ==
PROVIDERS: PCP Physician Assistant; Visit Provider Urology
PROC: 3E0K8GC Introduction of Other Therapeutic Substance into Genitourinary Tract, Via Natural or Artificial Opening Endoscopic (ICD-10-PCS; CPT 51715; principal; 2024-07-17 10:30)
DX: N36.42 Intrinsic sphincter deficiency (ISD) (principal); N39.46 Mixed incontinence
CPT/HCPCS: 51715; J0690; J2003; J2704; J7120; L8606